=== PATIENT | female | born 1975 | race Caucasian/White ===

== ENCOUNTER 2019-11-07 12:24 | Outpatient (CLI) | payer MEDICAID, SELFPAY ==
--- NOTE | ~2019-11-07 | XR_ITS ---
EXAMINATION: XR shoulder LT min 2V DATE: 11/07/2019 13:01 INDICATION: Left shoulder pain. TECHNIQUE: 4 views of left shoulder were obtained. COMPARISON: None. FINDINGS: Bone alignment is normal. No fracture. There is mild osteoarthritis of glenohumeral joint a nd acromioclavicular joint. IMPRESSION: 1. Mild polyarticular osteoarthritis. Reviewed, dictated and finalized at location A.
--- NOTE | ~2019-11-07 | XR_ITS ---
EXAMINATION: XR shoulder RT min 2V DATE: 11/07/2019 13:01 INDICATION: Right shoulder pain. TECHNIQUE: 4 views of right shoulder were obtained. COMPARISON: None. FINDINGS: Bone alignment is normal. No fracture. There is mild osteoarthritis of glenohumeral joint a nd acromioclavicular joint. IMPRESSION: 1. Mild polyarticular osteoarthritis. Reviewed, dictated and finalized at location A.
[2019-11-07 12:56] LABS: Basophils Percent Auto 0.4 % (0.2-1.2); Eosinophils Absolute Auto 0.2 K/mm3 (0-0.3); Eosinophils Percent Auto 1.8 % (0-4.4); Hematocrit 41.3 % (37.0-47.0); Hemoglobin 13.9 g/dL (12.0-15.0); Immature Granulocyte Absolute 0.08 K/mm3 (0.00-0.031); Lymphocytes Absolute Auto 2.77 K/mm3 (0.9-3.2); Lymphocytes Percent Auto 33.7 % (18.3-44.2); Mean Corpuscular HGB Conc 33.7 g/dl (32-36); Mean Corpuscular Hemoglobin 30.4 pg (26-34); Mean Corpuscular Volume 90.4 fl (80-100); Monocytes Absolute Auto 0.6 K/mm3 (0.1-0.6); Monocytes Percent Auto 7.2 % (2.6-8.5); Neutrophils Absolute Auto 4.6 K/mm3 (1.3-6.7); Neutrophils Percent Auto 55.9 % (45.5-73.1); Red Blood Count 4.57 M/mm3 (4.2-5.4); Red Cell Distribution Width 12.7 % (11.5-14.5); White Blood Count 8.2 K/mm3 (4.5-10.0)
[2019-11-07 13:08] LABS: Alanine Aminotransferase 75 U/L (4-35); Albumin Level 4.1 g/dL (3.5-5.1); Alkaline Phosphatase 72 U/L (38-126); Aspartate Amino Transferase 58 U/L (14-36); Bilirubin,Total 0.4 mg/dL (0.2-1.3); Blood Urea Nitrogen 17 mg/dL (7-17); Carbon Dioxide 22 mmol/L (22-30); Chloride 106 mmol/L (98-107); Cholesterol 231 mg/dL (0-200); Estimated Glomerular Filt Rate > 60; Glucose 190 mg/dL (65-105); HDL Direct 40 mg/dL; Potassium 4.3 mmol/L (3.4-5.0); Sodium 136 mmol/L (137-145); Triglycerides 244 mg/dL (<150)
[2019-11-07 13:19] LABS: LDL Cholesterol Direct 134 mg/dL
[2019-11-07 13:33] LABS: Vitamin D 25 Hydroxy 31.4 ng/mL
[2019-11-07 14:05] LABS: Hepatitis C Virus Antibody Reactive (Negative)
[2019-11-11 01:47] LABS: Hepatitis C RNA, Quant PCR 125000 IU/mL
== END 2019-11-07 12:25 | disposition home or self-care (01) ==
PROVIDERS: PCP Internal Medicine; Visit Provider Clinical Nurse Specialist
DX: M19.012 Primary osteoarthritis, left shoulder (principal); M19.011 Primary osteoarthritis, right shoulder; E11.9 Type 2 diabetes mellitus without complications; Z86.19 Personal history of other infectious and parasitic diseases; E55.9 Vitamin D deficiency, unspecified; Z86.39 Personal history of other endocrine, nutritional and metabolic disease
CPT/HCPCS: 36415; 73030; 80053; 80061; 82306; 83036; 84443; 85025; 85055; 86803; 87522

== ENCOUNTER 2019-11-16 14:58 | Outpatient (CLI) | payer MEDICAID, SELFPAY ==
[2019-11-16 15:45] LABS: Prothrombin Time 13.2 Seconds (11.1-14.7)
[2019-11-16 16:30] LABS: HIV 1/2 Ab P24 Ag Result Negative (Negative)
[2019-11-16 16:35] LABS: Hepatitis B Surface Antigen Negative (Negative)
[2019-11-16 16:53] LABS: Hepatitis B Surface Antibody > 1000.00 s/c
[2019-11-16 18:12] LABS: Hepatitis B Surface Anti Res Positive
[2019-11-20 18:53] LABS: Amphetamines negative; Barbiturates negative; Benzodiazepines negative; Cocaine Metabolites negative; Marijuana Metabolites negative; PCP negative
[2019-11-20 20:04] LABS: Hepatitis B Core Ab Total Nonreactive (Nonreactive)
[2019-11-23 21:42] LABS: ALT 73 U/L (6-29); Alpha-2-Macroglobulin 474 mg/dL (106-279); Apolipoprotein A1 148 mg/dL (101-198); Fibrosis Score 0.44; Fibrosis Stage F1-F2; GGT 66 U/L (3-55); Haptoglobin 185 mg/dL (43-212); Necroinflammat Act Grade A1-A2; Total Bilirubin 0.3 mg/dL (0.2-1.2)
== END 2019-11-16 14:59 | disposition home or self-care (01) ==
LOC: ANHLAB 15:02
PROVIDERS: PCP Internal Medicine; Visit Provider Internal Medicine Gastroenterology
DX: B19.20 Unspecified viral hepatitis C without hepatic coma (principal)
CPT/HCPCS: 36415; 80307; 81596; 85610; 86703; 86704; 86706; 87340; G0432

== ENCOUNTER 2019-12-09 01:06 | Outpatient (CLI) | payer MEDICAID, SELFPAY ==
[2019-12-09 18:11] LABS: SARS-CoV-2 RNA PCR Negative
== END 2019-12-09 01:07 | disposition home or self-care (01) ==
LOC: ANHCOVIDDT 01:06
PROVIDERS: PCP Internal Medicine; Visit Provider Internal Medicine Gastroenterology
DX: Z01.812 Encounter for preprocedural laboratory examination (principal); Z11.59 Encounter for screening for other viral diseases
CPT/HCPCS: 87635; C9803; U0003

== ENCOUNTER 2019-12-12 01:41 | Day surgery (SDC) | payer MEDICAID, SELFPAY ==
[2019-12-04 15:45] VITALS: BMI 42.5
[2019-12-12 10:17] VITALS: BP 132/78; PULSE 99; RESP 20; TEMP 37.1; O2SAT 99; BMI 41.3
[2019-12-12 10:43] LABS: Glucose Point of Care 226 (65-105)
[2019-12-12] MEDS: LACTATED RINGERS 1,000 ML 150 ML IV CONT (10:43)
--- NOTE | 2019-12-12 10:57 | WPDANESEPPF ---
Anes - Initial Pre Proc Eval Procedure: Operation Date: 12/12/19 11:30 Proposed Procedures p Colonoscopy - Peter Bautista MD Date/Time: 12/12/19 10:57 Surgeon: Peter Bautista MD Pre Op Diagnosis: COLON POLYPS Patient Data Age: 44 Gender: F Height: 5 ft 5 in Weight: 112.7 kg Last Vital Signs Temp 98.7 F 12/12/19 10:17 Pulse 99 12/12/19 10:17 Resp 20 12/12/19 10:17 BP 132/78 12/12/19 10:17 Pulse Ox 99 12/12/19 10:17 Allergies Allergy/AdvReac Type Severity Reaction Status Date / Time asenapine [From Saphris] Allergy Intermediate numbness Verified 12/12/19 10:15 in mouth, throat capsaicin [From Capzasin] Allergy Mild rash Verified 12/12/19 10:15 erythromycin base Allergy Mild DIARRHEA Verified 12/12/19 10:15 menthol [From Capzasin] Allergy Mild rash Verified 12/12/19 10:15 Sulfa (Sulfonamide Allergy Mild RASH Verified 12/12/19 10:15 Antibiotics) Home Medications Medication Instructions Recorded Confirmed Type aspirin 81 mg tablet,delayed 81 mg PO DAILY 11/07/19 12/04/19 History release famotidine 40 mg tablet 40 mg PO DAILY 11/07/19 12/04/19 History lactobacillus combination no.9 4 4 mmu cells PO DAILY cap 11/07/19 12/04/19 History billion cell capsule loratadine 10 mg tablet 10 mg PO DAILY 11/07/19 12/04/19 History lisinopril 2.5 mg tablet 2.5 mg PO DAILY #90 tablet 11/09/19 12/04/19 Rx pen needle, diabetic 31 gauge x #100 each 11/09/19 12/04/19 Rx 5/16 simvastatin 10 mg tablet 10 mg PO DAILY #90 tablet 11/09/19 12/04/19 Rx insulin NPH isoph U-100 human 100 See Rx Instructions SUB-Q DAILY 11/13/19 12/04/19 Rx unit/mL subcutaneous suspension #10 ml insulin syringe-needle U-100 1 mL #100 each 11/13/19 12/04/19 Rx 29 gauge x 1/2 nystatin 100,000 unit/gram topical 1 applic TOPICAL .COMPLEX #60 gm 11/13/19 12/04/19 Rx powder linaclotide 145 mcg capsule 145 mcg PO DAILY #30 cap 11/16/19 12/04/19 Rx ibuprofen 400 mg PO Q6H PRN 12/04/19 12/04/19 History oxcarbazepine 300 mg tablet 300 mg PO .am tablet 12/04/19 12/04/19 History oxcarbazepine 600 mg tablet 600 mg PO .pm tablet 12/04/19 12/04/19 History sertraline 100 mg tablet 100 mg PO DAILY 12/04/19 12/04/19 History Laboratory Tests 12/12/19 10:40 POC Capillary Glucose 226 mg/dl H mg/dl (65-105) Patient hx anesthesia problems: none Family hx anesthesia problems: none [facility] Past Medical History Medical History (Updated 12/04/19 @ 13:54 by Tim Wagoner DO) Allergies Anxiety Arthritis Asthma 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 Constipation COPD (chronic obstructive pulmonary disease) Depression Diabetes Drug abuse in remission Excessive daytime sleepiness GERD (gastroesophageal reflux disease) Headache Hepatitis C IBS (irritable bowel syndrome) Sleep apnea Thyroid disorder Surgical History Surgical History (Updated 12/04/19 @ 13:45 by Tim Wagoner DO) History of colonoscopy History of surgery on arm 2017 History of umbilical hernia repair History of ventral hernia repair Hx laparoscopic cholecystectomy Hx of umbilical hernia repair 2007 -[place], [place] Hx of ventral hernia repair 2014 [place], [place] Social History Social History Smoking status: Current every day smoker Tobacco type: cigarettes Additional smoking assessment comments: Smokes about every 3days Alcohol intake: former Substance use: former Substance use type: crack/cocaine, heroin and methamphetamine Additional occupation/education comments: disability Gender identity (if verbalized by the patient): Female Anes - Eval Final PreProcedure Day of Procedure 12/12/19 10:57 Patient weight: morbidly obese Heart: regular rate and rhythm Lungs: clear to auscultation Airway: Mallampati scale class III Neurological: alert and oriented Last oral intake: >/= 8 hour
--- NOTE | 2019-12-12 11:03 | WPDHPUPDATE1 ---
History and Physical Update Update Date/Time: 12/12/19 11:03 History and Physical has been reviewed, including an updated exam of the patient. There are NO changes in the patient's condition. Risks, benefits, and alternatives have been discussed and questions answered. Patient agrees to proceed with procedure.
[2019-12-12 11:27] VITALS: BP 109/71; PULSE 82; RESP 24; O2SAT 93
[2019-12-12 11:36] LABS: Glucose Point of Care 206 (65-105)
[2019-12-12 11:37] VITALS: BP 105/70; PULSE 83; RESP 26; O2SAT 93
[2019-12-12 11:47] VITALS: BP 105/70; PULSE 79; RESP 26; O2SAT 93
== END 2019-12-12 12:06 | disposition home or self-care (01) ==
PROVIDERS: PCP Internal Medicine; Visit Provider Internal Medicine Gastroenterology
PROC: 0DJD8ZZ Inspection of Lower Intestinal Tract, Via Natural or Artificial Opening Endoscopic (ICD-10-PCS; CPT 45378; principal; 2019-12-12 11:30)
DX: Z12.11 Encounter for screening for malignant neoplasm of colon (principal); K57.30 Diverticulosis of large intestine without perforation or abscess without bleeding; Z86.010 Personal history of colon polyps; E11.9 Type 2 diabetes mellitus without complications; J44.9 Chronic obstructive pulmonary disease, unspecified; F41.8 Other specified anxiety disorders; K21.9 Gastro-esophageal reflux disease without esophagitis; K58.9 Irritable bowel syndrome, unspecified; Z79.4 Long term (current) use of insulin; Z79.82 Long term (current) use of aspirin; F17.210 Nicotine dependence, cigarettes, uncomplicated; E66.01 Morbid (severe) obesity due to excess calories; Z68.41 Body mass index [BMI] 40.0-44.9, adult
CPT/HCPCS: 45378; J2704; J7120

== ENCOUNTER 2019-12-13 12:12 | Outpatient (CLI) | payer MEDICAID, SELFPAY ==
[2019-12-16 19:29] LABS: Hepatitis C Viral RNA PCR 16300 IU/mL
[2019-12-22 09:52] LABS: HCV Genotype, LiPA 3
== END 2019-12-13 12:13 | disposition home or self-care (01) ==
PROVIDERS: PCP Internal Medicine; Visit Provider Internal Medicine Gastroenterology
DX: B19.20 Unspecified viral hepatitis C without hepatic coma (principal)
CPT/HCPCS: 36415; 87522

== ENCOUNTER 2019-12-14 08:34 | Outpatient (CLI) | payer MEDICAID, SELFPAY ==
--- NOTE | ~2019-12-14 | US_ITS ---
EXAMINATION: US right upper quadrant DATE: 12/14/2019 09:37 INDICATION: Unspecified viral hepatitis C without hepatic coma. TECHNIQUE: Multiple grayscale and Doppler ultrasound images of the abdomen were obtained. COMPARISON: None FINDINGS: Sensitivity is decreased by obesity. The visualized portions of the head and body of the pa ncreas are normal. The liver is normal without focal lesion. No liver surface nodularity. The gallbla dder is absent. The common duct is normal and measures 5 mm. There is normal flow in main portal vein . IMPRESSION: 1. Normal right upper quadrant ultrasound status post cholecystectomy. Reviewed, dictated and finalized at location B.
== END 2019-12-14 08:35 | disposition home or self-care (01) ==
PROVIDERS: PCP Internal Medicine; Visit Provider Internal Medicine Gastroenterology
DX: B19.20 Unspecified viral hepatitis C without hepatic coma (principal); R10.9 Unspecified abdominal pain
CPT/HCPCS: 76705

== ENCOUNTER 2020-01-30 10:00 | Outpatient (RCR) | payer MEDICAID, SELFPAY ==
[2019-12-07 12:37] VITALS: BP_SYST 105
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
--- NOTE | 2020-01-02 07:25 | PCPTNOTE ---
Patient called & cancelled scheduled appointment this date due to no ride.
[2020-01-04 12:29] VITALS: BP_SYST 105
--- NOTE | 2020-01-04 13:20 | PTOPEVAL ---
PHYSICAL THERAPY PLAN OF CARE UPDATE AND PROGRESS REPORT Thank you for referring Perla Palomo to [facility].? The patient is scheduled to be seen for therapy?2x/week for 2 weeks followed by 1x/week for 2 weeks. Please review, sign, date and return this plan of care MIKEY. I agree with and certify that the following plan of care is medically necessary. Referring Physician Date Attending Provider: Tim Wagoner, DO Progress Diagnosis bilateral shoulder pain Onset 2 years ago Subjective Information Perla is here today for Query Text:As Reported By Patient/ bilateral shoulder pain. Family States that she feels there is progress in meeting her goals but there continues to be a problem. She recognizes that stress can impact her pain and function. Self Report Pain Assessment Bilateral Shoulder(s) Reported Pain Level 5 Pain Description Aching,Tightness Other Pain Description left arm 6/10, right arm 3/10 Pain Aggravating Factors Other Pain Aggravating Factors Other Pain Aggravating Factors did a sleep study last night Pain Behaviors Guarding Interventions Used By Clinicians Exercise Additional Pain Comments right shoulder 2/10 Shoulder Range of Motion Left Shoulder Flexion - Active 127 Shoulder Abduction - Active 90 Shoulder Medial Rotation - Active L5 Query Text:Reach Behind the Back Shoulder Lateral Rotation - Active 60 Right Shoulder Flexion - Active 135 Shoulder Abduction - Active 105 Shoulder Medial Rotation - Active L3 Query Text:Reach Behind the Back Shoulder Lateral Rotation - Active 65 Shoulder Lateral Rotation - Active T2 Query Text:Reach Behind the Head Upper Extremity Muscle Strength Testing Shoulder Left Shoulder Flexion Strength 4 Good Shoulder Abduction Strength 4 Good Shoulder Medial Rotation Strength 4 Good Shoulder Lateral Rotation Strength 4- Good - Right Shoulder Flexion Strength 4+ Good + Shoulder Abduction Strength 4+ Good + Shoulder Medial Rotation Strength 4+ Good + Shoulder Lateral Rotation Strength 4+ Good + PT Clinical Summary Perla is a 44 yo female participating in outpatient physical therapy with bilateral shoulder pain. She demonstrates today an increase in ROM bilaterally in all directions, with left worse than right. She also describes greater pain in left vs. right and has limitd st
--- NOTE | 2020-01-30 10:45 | PTOPEVAL ---
PHYSICAL THERAPY PROGRESS REPORT Thank you for referring Perla Palomo to [facility].? The patient is scheduled to be seen for a re-assessment in 3 weeks. Please review, sign, date and return this plan of care MIKEY. I agree with and certify that the following plan of care is medically necessary. Referring Physician Date Attending Provider: Tim Wagoner, DO Progress Diagnosis bilateral shoulder pain Onset 2 years ago Subjective Information Perla reports she feels as Query Text:As Reported By Patient/ though she can stretch her Family shoulders a little further. Self Report Pain Assessment Bilateral Shoulder(s) Reported Pain Level 3 Pain Description Aching,Soreness,With Movement Other Pain Description R shoulder 1/10, left shoulder 3/10 Pain Behaviors Guarding Interventions Used By Clinicians Exercise Pain Score Pain Score 3: Self Report Upper Extremity Range of Motion Scapular/ Shoulder Range of Motion Left Shoulder Flexion - Active 127 Shoulder Abduction - Active 103 Shoulder Medial Rotation - Active L3 Query Text:Reach Behind the Back Shoulder Lateral Rotation - Active 60 Right Shoulder Flexion - Active 150 Shoulder Abduction - Active 122 Shoulder Medial Rotation - Active T12 Query Text:Reach Behind the Back Shoulder Lateral Rotation - Active 78 Shoulder Lateral Rotation - Active T3 Query Text:Reach Behind the Head Upper Extremity Muscle Strength Testing Scapular/Shoulder Left Shoulder Flexion Strength 4+ Good + Shoulder Abduction Strength 4+ Good + Shoulder Medial Rotation Strength 4 Good Shoulder Lateral Rotation Strength 4 Good Right Shoulder Flexion Strength 5 Normal Shoulder Abduction Strength 5 Normal Shoulder Medial Rotation Strength 5 Normal Shoulder Lateral Rotation Strength 5 Normal PT Clinical Summary Perla is a 44 yo female participating in outpatient physical therapy with bilateral shoulder pain. Perla presents with significant improvement in right shoulder ROM and improvement in bilateral shoulder strength. Her left shoulder ROM, while improving, is at a slower pace than compared to the right. I do wonder about a differential diagnosis of adhesive capsulitis of the left shoulder. Perla is
--- NOTE | 2020-02-20 15:30 | PCPTNOTE ---
Addendum entered by Jamilah Leonardo, PT, DPT 02/21/20 08:34: Cancelled appointment as she is going to get an MRI on Wednesday (02/25). She will call after she receives the results if she is to continue PT. Original Note: Patient called & cancelled scheduled appointment this date due to [ ]
--- NOTE | 2020-02-28 13:36 | PCPTNOTE ---
Attending Provider: Tim Wagoner DO Patient:Perla Palomo Date of :1975 Patient has not returned for any further treatments since 01/30/2020 (also date her last plan of care update was completed and sent). Spoke with Perla regarding her care and she noted that her physician is referring her to an orthopedic doctor. Plan to continue HEP and follow up with orthopedic. She will be discharged at this time, but would be happy to work with her in the future. Patient?s initial visit was on 12/07/2019. The goals have been partially met. Thank you for referring this patient to [facility]. Please review, sign, date and return this discharge summary MIKEY. I have been updated about the patient's current status and I agree with discharge from the above service at this time. Referring Physician Date
== END 2020-02-29 15:02 | disposition home or self-care (01) ==
LOC: ANHPT 10:00
PROVIDERS: PCP Internal Medicine; Visit Provider Internal Medicine
DX: M25.511 Pain in right shoulder (principal); M19.011 Primary osteoarthritis, right shoulder; M25.512 Pain in left shoulder; M19.012 Primary osteoarthritis, left shoulder
CPT/HCPCS: 36415; 87522; 97110; 97140; 97161

== ENCOUNTER 2020-01-31 10:44 | Outpatient (CLI) | payer MEDICAID, SELFPAY ==
[2020-01-31 11:30] LABS: Cholesterol 227 mg/dL (0-200); HDL Direct 28 mg/dL; Triglycerides 297 mg/dL (<150)
[2020-01-31 11:41] LABS: LDL Cholesterol Direct 136 mg/dL
[2020-01-31 11:50] LABS: Creatinine Urine 75.3 mg/dL
[2020-01-31 11:54] LABS: Hemoglobin A1C 8.2 % (<5.7)
[2020-01-31 11:54] LABS: MALB Creatinine Ratio 56.2 mg/g (0-30); Microalbumin Urine Random 42.3 mg/L (0-16.7)
== END 2020-01-31 10:45 | disposition home or self-care (01) ==
LOC: ANHLAB 10:45
PROVIDERS: PCP Internal Medicine; Visit Provider Internal Medicine
DX: E11.9 Type 2 diabetes mellitus without complications (principal)
CPT/HCPCS: 36415; 80061; 82043; 83036

== ENCOUNTER 2020-02-25 09:33 | Outpatient (CLI) | payer MEDICAID, SELFPAY ==
--- NOTE | ~2020-02-25 | MR_ITS ---
EXAMINATION: MR shoulder LT wo con DATE: 02/25/2020 10:23 INDICATION: Left shoulder pain. TECHNIQUE: Magnetic resonance imaging (MRI) of the left shoulder was performed without intravenous co ntrast. Sequences included axial PD-weighted FS FSE, coronal oblique PD-weighted FS FSE, coronal obli que T2-weighted FS FSE, sagittal PD-weighted FS FSE, and sagittal T1-weighted SE. COMPARISON: None. FINDINGS: Coracoacromial arch: The acromion undersurface is curved in morphology (type II) with anterior downsloping. The coracoacro mial ligament is normal. Mild acromioclavicular osteoarthritis with small inferiorly directed osteoph ytes. Rotator cuff: Moderate supraspinatus tendinopathy with thickening and mild increased signal of the distal 2-3 cm of the tendon. There is a 4 x 3 x 1.5 mm region of fluid or near fluid signal within the conjoined port ion of the supraspinatus and infraspinatus tendons located proximally 1.5 cm from the greater tuberos ity insertion consistent with mild partial tear, unclear whether involves the bursal surface or remai ns intrasubstance closely opposed to the bursal surface. The more posterior infraspinatus and teres m inor tendons are normal. The subscapularis tendon is normal. Normal rotator cuff muscle bulk and sign al. Biceps tendon, glenoid labrum and glenohumeral cartilage: Long head of the biceps tendon is normal. Glenoid labrum is normal. Mild glenohumeral osteoarthritis with partial thickness cartilage loss with smooth chondral surface along the cephalad half of the gle noid and inferomedial aspect of the humeral head. Fluid: Physiologic amount of fluid in the glenohumeral joint and biceps tendon sheath. No loose osteochondra l bodies. No abnormal fluid signal at the subacromial/subdeltoid bursa to suggest bursitis. Bones: There is some red marrow reexpansion in the visualized humerus. No reactive marrow edema, fracture or pathologic marrow replacing process. IMPRESSION: 1. Moderate supraspinatus tendinopathy and small bursal sided versus intrasubstance tear at the criti deirdre zone of the conjoined portion of the supraspinatus and infraspinatus tendons. 2. Mild glenohumeral and acromioclavicular osteoarthritis. Reviewed, dictated and finalized at location B. IMPRESSION: 1. Moderate supraspinatus tendinopathy and small bursal sided versus intrasubst ance tear at the critical zone of the conjoined portion of the supraspinatus an d infraspinatus tendons. 2. Mild glenohumeral and acromioclavicular osteoarthritis.
== END 2020-02-25 09:34 | disposition home or self-care (01) ==
PROVIDERS: PCP Internal Medicine; Visit Provider Internal Medicine
DX: M25.512 Pain in left shoulder (principal); M75.82 Other shoulder lesions, left shoulder; M19.012 Primary osteoarthritis, left shoulder
CPT/HCPCS: 73221

== ENCOUNTER 2020-03-19 03:06 | Outpatient (CLI) | payer MEDICAID, SELFPAY ==
[2020-03-19 19:47] LABS: SARS-CoV-2 RNA PCR Negative
== END 2020-03-19 03:07 | disposition home or self-care (01) ==
LOC: ANHCOVIDDT 03:07
PROVIDERS: Clinical Nurse Specialist; PCP Internal Medicine; Visit Provider Internal Medicine Critical Care Medicine
DX: R68.89 Other general symptoms and signs (principal); Z20.828 Contact with and (suspected) exposure to other viral communicable diseases
CPT/HCPCS: 87635; C9803; U0003

== ENCOUNTER 2020-03-21 08:09 | Outpatient (CLI) | payer MEDICAID, SELFPAY ==
--- NOTE | 2020-04-19 11:43 | WPDSLEEPSTUD ---
Sleep Study Date of Study: 03/21/20 Ordering Provider: Dr.Yablonsky Sumi. Interpreting Physician: Sleep Study Type: Split Polysomnogram Height: 1.65 m Weight: 110.223 kg Body Mass Index: 40.4 Neck Circumference: 35.56 cm Grandy: 20 Reason for Sleep Study Prior sleep study shows severe obstructive sleep apnea, worse in supine position. Sleep History History of snoring, non refreshing sleep and severe daytime sleepiness. 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e pulmonary disease) Coughing Depression Diabetes Drug abuse in remission Excessive daytime sleepiness GERD (gastroesophageal reflux disease) Headache Hepatitis C High cholesterol History of MRSA infection History of postoperative complication of surgical procedure HPV (human papilloma virus) infection IBS (irritable bowel syndrome) Internal impingement of right shoulder Memory loss Shortness of breath Sleep apnea Sleep disorder Tendinitis of left rotator cuff Thyroid disorder Type 2 diabetes mellitus with hyperglycemia Urinary frequency Vertigo Wears dentures Wears glasses Surgical History Surgical History History of colonoscopy History of surgery on arm 2017 History of umbilical hernia repair History of ventral hernia repair Hx laparoscopic cholecystectomy Hx of umbilical hernia repair 2007 -[place], [place] Hx of ventral hernia repair 2014 [place], [place] Family History Family History Mother Diabetes mellitus Asthma Obesity Depression Hypertension Father Brain tumor Depression Social History Social History Smoking packs per day: 0.5 Smoking cigarettes per day: 10.0 Smoking status: Current some day smoker Tobacco type: cigarettes Additional smoking assessment comments: Smokes about every 3days Alcohol intake: former Substance use: former Substance use type: crack/cocaine, heroin and methamphetamine Additional occupation/education comments: disability Gender identity (if verbalized by the patient): Female Medications Home Medications Medication Instructions Recorded Confirmed Type aspirin 81 mg tablet,delayed 81 mg PO DAILY 11/07/19 04/18/20 History release famotidine 40 mg tablet 40 mg PO DAILY 11/07/19 04/18/20 History loratadine 10 mg tablet 10 mg PO DAILY 11/07/19 04/18/20 History pen needle, diabetic 31 gauge x #100 each 11/09/19 04/18/20 Rx 5/16 insulin syringe-needle U-100 1 mL #100 each 11/13/19 04/18/20 Rx 29 gauge x 1/2 nystatin 100,000 unit/gram topical 1 applic TOPICAL .COMPLEX #60 gm 11/13/19 04/18/20 Rx powder linaclotide 145 mcg capsule 145 mcg PO DAILY #30 cap 11/16/19 04/18/20 Rx ibuprofen 400 mg PO Q6H PRN 12/04/19 04/18/20 History oxcarbazepine 600 mg tablet 600 mg PO .pm tablet 12/04/19 04/18/20 History lisinopril 2.5 mg tablet 2.5 mg PO DAILY #90 tablet 01/29/20 04/18/20 Rx simvastatin 10 mg tablet 10 mg PO DAILY #90 tablet 01/29/20 04/18/20 Rx blood-glucose meter #1 ea 02/12/20 04/18/20 Rx insulin NPH isoph U-100 human 100 See Rx Instructions SUB-Q DAILY 02/12/20 04/18/20 Rx unit/mL subcutaneous suspension #20 ml insulin syringe-needle U-100 1 mL #100 ea 02/12/20 04/18/20 Rx 29 gauge x 1/2 lancets 30 gauge #100 ea 02/12/20 04/18/20 Rx sertraline 100 mg tablet 150 mg PO DAILY tablet 02/12/20 04/18/20 History albuterol sulfate 90 mcg/actuation 2 inh INHALATION Q4H PRN #6.7 g 02/13/20 04/18/20 Rx aerosol inhaler blood sugar diagnostic #200 ea 02/13/20 04/18/20 Rx Novolog Flexpen U-100 Insulin 100 S
[2020-04-19 11:53] VITALS: BMI 40.4
== END 2020-03-21 08:10 | disposition home or self-care (01) ==
LOC: ANHCSM 08:14
PROVIDERS: PCP Internal Medicine; Visit Provider Nurse Practitioner
DX: G47.30 Sleep apnea, unspecified (principal)
CPT/HCPCS: 95811

== ENCOUNTER 2020-03-23 10:45 | Emergency (ER) | payer MEDICAID, SELFPAY ==
--- NOTE | ~2020-03-23 | XR_ITS ---
EXAMINATION: XR wrist RT min 3V EXAM DATE: 03/23/2020 11:11 INDICATION: fall/pain, pain down first digit into wrist, redness. TECHNIQUE: Right wrist frontal, frontal with ulnar deviation, oblique and lateral projections obtain ed and reviewed. There is no prior study for comparison. FINDINGS: Right wrist scapholunate joint space is maintained. There are no acute fractures or disloca tions identified. There is no subcutaneous gas. The soft tissue is unremarkable. There are no rad iopaque foreign bodies. IMPRESSION: Right wrist exam without acute osseous findings. Reviewed, dictated and finalized at location A. 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
--- NOTE | ~2020-03-23 | XR_ITS ---
EXAMINATION: XR hand RT min 3V EXAM DATE: 03/23/2020 11:45 INDICATION: right hand pain, fall, pain in 1st digit down into wrist. TECHNIQUE: Right hand frontal, lateral and oblique projections obtained and reviewed. Correlation is made to right wrist exam same date. FINDINGS: Right metacarpal bones are unremarkable. There are no acute fractures or dislocations iden tified. There is no subcutaneous gas. The soft tissue is unremarkable. There are no radiopaque fo reign bodies. IMPRESSION: 1. Right hand exam without acute osseous findings. Reviewed, dictated and finalized at location A. 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
[2020-03-23 11:00] VITALS: BP 130/71; PULSE 107; RESP 18; TEMP 36.3; O2SAT 97
--- NOTE | 2020-03-23 11:08 | PC.NURSE ---
Pt to XRAY via WC.
--- NOTE | 2020-03-23 11:38 | ED.FALL ---
HPI - Fall General Chief Complaint: Fall <Tracy Anguiano PA-C - Last Filed: 03/23/20 12:16> Stated Complaint: fall 03/22/2020/ right hand pain <Tracy Anguiano PA-C - Last Filed: 03/23/20 12:16> Time Seen by Provider: 03/23/20 11:23 <Tracy Anguiano PA-C - Last Filed: 03/23/20 12:16> Source: patient <CANDIDA Wisdom Last Filed: 03/23/20 12:16> Mode of arrival: ambulatory <CANDIDA Wisdom Last Filed: 03/23/20 12:16> Limitations: no limitations <CANDIDA Wisdom Last Filed: 03/23/20 12:16> History of Present Illness HPI Narrative: This is a 44-year-old female that presents the emergency department for right hand pain after a fall yesterday. Reports she tripped and fell backwards in her driveway. Reports catching herself with her right hand. Denies hitting her head or loss of consciousness. Reports that she has had pain in the right hand and wrist. Denies prodromal symptoms, other injuries, decreased range of motion or numbness. <Tracy Anguiano PA-C - Last Filed: 03/23/20 12:16> Related Data Home Medications: Home Medications Medication Instructions Recorded Confirmed aspirin 81 mg tablet,delayed 81 mg PO DAILY 11/07/19 02/27/20 release famotidine 40 mg tablet 40 mg PO DAILY 11/07/19 02/27/20 loratadine 10 mg tablet 10 mg PO DAILY 11/07/19 02/27/20 ibuprofen 400 mg PO Q6H PRN 12/04/19 02/27/20 oxcarbazepine 600 mg tablet 600 mg PO .pm tablet 12/04/19 02/27/20 sertraline 100 mg tablet 150 mg PO DAILY tablet 02/12/20 02/27/20 <CANDIDA Wisdom Last Filed: 03/23/20 12:16> Allergies/Adverse Reactions: Allergies Allergy/AdvReac Type Severity Reaction Status Date / Time asenapine [From Saphris] Allergy Intermediate numbness Verified 03/12/20 08:52 in mouth, throat capsaicin [From Capzasin] Allergy Mild rash Verified 03/12/20 08:52 erythromycin base Allergy Mild DIARRHEA Verified 03/12/20 08:52 menthol [From Capzasin] Allergy Mild rash Verified 03/12/20 08:52 Sulfa (Sulfonamide Allergy Mild RASH Verified 03/12/20 08:52 Antibiotics) <Tracy Anguiano PA-C - Last Filed: 03/23/20 12:16> Review of Systems Review of Systems: Narrative: CONSTITUTIONAL: Denies fever EYES: Denies visual changes GASTROINTESTINAL: Denies vomiting MUSCULOSKELETAL: Reports joint pain, and myalgia. NEUROLOGIC: Denies numbness, or weakness. 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 Constipation COPD (chronic obstructive pulmonary disease) Depression Diabetes Drug abuse in remission Excessive daytime sleepiness GERD (gastroesophageal reflux disease) Headache Hepatitis C IBS (irritable bowel syndrome) Sleep apnea Thyroid disorder Type 2 diabetes mellitus with hyperglycemia <CANDIDA Wisdom Last Filed: 03/23/20 12:16> Surgical History Surgical History: Surgical History History of colonoscopy History of surgery on arm 2017 History of umbilical hernia repair History of ventral hernia repair Hx laparoscopic cholecystectomy Hx of umbilical hernia repair 2007 -[place], [place] Hx of ventral hernia repair 2014 [place], [place] <Tarcy Anguiano PA-C - Last Filed: 03/23/20 12:16> Family History Family History: Family History Mother Diabetes mellitus Asthma Obesity Depression Hypertension Father Brain tumor Depression <CANDIDA Wisdom Last Filed: 03/23/20 12:16> Social History Social History: Social History (Re
[2020-03-23] MEDS: IBUPROFEN 600 MG TABLET PO (11:48)
[2020-03-23 12:36] VITALS: BP 124/87; PULSE 99; RESP 19; O2SAT 99
== END 2020-03-23 12:37 | disposition home or self-care (01) ==
PROVIDERS: Emergency Provider General Practice; PCP Internal Medicine
DX: M25.531 Pain in right wrist (principal); F41.9 Anxiety disorder, unspecified; M19.90 Unspecified osteoarthritis, unspecified site; J44.9 Chronic obstructive pulmonary disease, unspecified; E11.9 Type 2 diabetes mellitus without complications; K21.9 Gastro-esophageal reflux disease without esophagitis; K58.9 Irritable bowel syndrome, unspecified; Z86.19 Personal history of other infectious and parasitic diseases; G47.30 Sleep apnea, unspecified; E07.9 Disorder of thyroid, unspecified; Z79.82 Long term (current) use of aspirin; F17.210 Nicotine dependence, cigarettes, uncomplicated; W01.0XXA Fall on same level from slipping, tripping and stumbling without subsequent striking against object, initial encounter
CPT/HCPCS: 73110; 73130; 99283; A9270

== ENCOUNTER 2020-04-03 08:34 | Outpatient (CLI) | payer MEDICAID, SELFPAY ==
[2020-04-03 08:56] LABS: Hematocrit 41.3 % (37.0-47.0); Hemoglobin 14.4 g/dL (12.0-15.0); Mean Corpuscular HGB Conc 34.9 g/dl (32-36); Mean Corpuscular Hemoglobin 30.9 pg (26-34); Mean Corpuscular Volume 88.6 fl (80-100); Mean Platelet Volume 9.5 fl (7.4-10.4); Platelet Count Result 258 k/mm3 (150-375); Red Blood Count 4.66 M/mm3 (4.2-5.4); Red Cell Distribution Width 12.5 % (11.5-14.5); White Blood Count 7.1 K/mm3 (4.5-10.0)
[2020-04-03 09:04] LABS: Alanine Aminotransferase 14 U/L (4-35); Albumin Level 3.9 g/dL (3.5-5.1); Alkaline Phosphatase 71 U/L (38-126); Anion Gap 10 mmol/L (8-16); Aspartate Amino Transferase 24 U/L (14-36); Bilirubin,Total 0.4 mg/dL (0.2-1.3); Blood Urea Nitrogen 14 mg/dL (7-17); Calcium 9.4 mg/dL (8.4-10.2); Carbon Dioxide 23 mmol/L (22-30); Chloride 104 mmol/L (98-107); Estimated Glomerular Filt Rate > 60; Glucose 292 mg/dL (65-105); Sodium 137 mmol/L (137-145)
[2020-04-09 03:00] LABS: Hepatitis C RNA, Quant PCR <15 IU/mL
== END 2020-04-03 08:35 | disposition home or self-care (01) ==
PROVIDERS: PCP Internal Medicine; Visit Provider Internal Medicine Gastroenterology
DX: B19.20 Unspecified viral hepatitis C without hepatic coma (principal)
CPT/HCPCS: 36415; 80053; 85027; 87522

== ENCOUNTER 2020-06-10 07:03 | Outpatient (CLI) | payer MEDICAID, SELFPAY ==
[2020-06-10 11:33] LABS: Hemoglobin A1C 9.7 % (<5.7)
== END 2020-06-10 07:04 | disposition home or self-care (01) ==
PROVIDERS: PCP Internal Medicine; Visit Provider Clinical Nurse Specialist
DX: E11.65 Type 2 diabetes mellitus with hyperglycemia (principal)
CPT/HCPCS: 36415; 83036

== ENCOUNTER 2020-07-30 16:02 | Emergency (ER) | payer MEDICARE, MEDICAID, SELFPAY ==
--- NOTE | ~2020-07-30 | XR_ITS ---
EXAMINATION: XR ankle RT min 3V DATE: 07/30/2020 18:00 INDICATION: Right ankle swelling. TECHNIQUE: 4 views of right ankle were obtained. COMPARISON: None. FINDINGS: Pes planus is noted. No fracture. Joint spaces are well maintained. There are enthesophytes at the posterior and plantar aspects of calcaneal tuberosity. IMPRESSION: 1. Pes planus. Reviewed, dictated and finalized at location A. IMPRESSION: 1. Pes planus.
--- NOTE | ~2020-07-30 | CT_ITS ---
EXAMINATION: CT brain wo con DATE: 07/30/2020 16:38 INDICATION: Head injury. TECHNIQUE: Computed tomography (CT) of the head was performed without intravenous contrast. The mA wa s adjusted according to patient size. Iterative reconstruction technique was employed. The dose-lengt h product was 605.33 mGy-cm. COMPARISON: Head CT 12/04/2009 FINDINGS: There is no intracranial hemorrhage, acute infarction, or abnormal intracranial mass lesion . The ventricles are normal in size. Cavum septum pellucidum and vergae are noted. There is fluid in right maxillary sinus. The orbits are normal. The mastoid air cells are normal. IMPRESSION: 1. Normal brain. Reviewed, dictated and finalized at location A. IMPRESSION: 1. Normal brain.
[2020-07-30 17:25] VITALS: BP 128/77; PULSE 90; RESP 18; TEMP 35.8; O2SAT 96
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
[2020-07-30 18:40] VITALS: BP 139/75; PULSE 75; RESP 16; O2SAT 100
== END 2020-07-30 18:21 | disposition home or self-care (01) ==
PROVIDERS: Emergency Provider Emergency Medicine; PCP Internal Medicine
DX: S06.0X0A Concussion without loss of consciousness, initial encounter (principal); E11.9 Type 2 diabetes mellitus without complications; I10 Essential (primary) hypertension; M19.90 Unspecified osteoarthritis, unspecified site; J44.9 Chronic obstructive pulmonary disease, unspecified; K21.9 Gastro-esophageal reflux disease without esophagitis; Z86.19 Personal history of other infectious and parasitic diseases; K58.9 Irritable bowel syndrome, unspecified; G47.30 Sleep apnea, unspecified; E07.9 Disorder of thyroid, unspecified; F41.9 Anxiety disorder, unspecified; F32.9 Major depressive disorder, single episode, unspecified; Z79.82 Long term (current) use of aspirin; Z79.4 Long term (current) use of insulin; F17.210 Nicotine dependence, cigarettes, uncomplicated; F17.220 Nicotine dependence, chewing tobacco, uncomplicated; M21.41 Flat foot [pes planus] (acquired), right foot; Y93.55 Activity, bike riding; V18.4XXA Pedal cycle driver injured in noncollision transport accident in traffic accident, initial encounter
CPT/HCPCS: 70450; 73610; 99284

== ENCOUNTER 2020-08-12 12:11 | Emergency (ER) | payer MEDICARE, MEDICAID, SELFPAY ==
--- NOTE | ~2020-08-12 | XR_ITS ---
EXAMINATION: XR chest 2V DATE: 08/12/2020 13:06 INDICATION: Shortness of breath TECHNIQUE: Frontal and lateral views of the chest are obtained COMPARISON: None available FINDINGS: The lungs are free of acute opacities. There is no pleural effusion or pneumothorax. The ca rdiomediastinal silhouette is normal. There is mild thoracic spondylosis. IMPRESSION: 1. No acute cardiopulmonary abnormality. Reviewed, dictated and finalized at location B.
--- NOTE | 2020-08-12 12:15 | ECG_ITS ---
Measurements Intervals [place] Rate: 104 P: 23 TN: 160 QRS: 54 QRSD: 77 T: 48 QT: 333 QTc: 440 Interpretive Statements SINUS TACHYCARDIA LOW VOLTAGE- PREOCRDIAL LEADS BASELINE ARTIFACT- V5 BORDERLINE ECG Electronically Signed On 08-12-2020 13:04:26 CDT by Shashank Matthews D.O.
[2020-08-12 12:21] VITALS: BP 128/74; PULSE 99; RESP 20; TEMP 36.7; O2SAT 98
[2020-08-12 12:54] LABS: Basophils Percent Auto 0.4 % (0.2-1.2); Eosinophils Absolute Auto 0.1 K/mm3 (0-0.3); Eosinophils Percent Auto 1.7 % (0-4.4); Hematocrit 39.9 % (37.0-47.0); Hemoglobin 13.4 g/dL (12.0-15.0); Immature Granulocyte Absolute 0.05 K/mm3 (0.00-0.031); Immature Granulocyte Percent A 0.7 % (0-0.5); Lymphocytes Absolute Auto 2.13 K/mm3 (0.9-3.2); Lymphocytes Percent Auto 28.6 % (18.3-44.2); Mean Corpuscular HGB Conc 33.6 g/dl (32-36); Mean Corpuscular Hemoglobin 29.8 pg (26-34); Mean Corpuscular Volume 88.9 fl (80-100); Monocytes Absolute Auto 0.5 K/mm3 (0.1-0.6); Monocytes Percent Auto 6.2 % (2.6-8.5); Neutrophils Absolute Auto 4.7 K/mm3 (1.3-6.7); Neutrophils Percent Auto 62.4 % (45.5-73.1); Platelet Count Result 246 k/mm3 (150-375); Red Blood Count 4.49 M/mm3 (4.2-5.4); Red Cell Distribution Width 12.8 % (11.5-14.5); White Blood Count 7.5 K/mm3 (4.5-10.0)
[2020-08-12 13:14] LABS: Anion Gap 10 mmol/L (8-16); Blood Urea Nitrogen 15 mg/dL (7-17); Carbon Dioxide 19 mmol/L (22-30); Chloride 105 mmol/L (98-107); Estimated CRCL calculation 147 ml/min; Estimated Glomerular Filt Rate > 60; Glucose 408 mg/dL (65-105); Potassium 4.2 mmol/L (3.4-5.0); Sodium 134 mmol/L (137-145)
--- NOTE | 2020-08-12 14:22 | ED.SOB ---
HPI - SOB/Dyspnea General Chief Complaint: Shortness of Breath/Dyspnea Stated Complaint: SOB Time Seen by Provider: 08/12/20 14:16 Source: patient Mode of arrival: ambulatory Limitations: no limitations History of Present Illness HPI Narrative: Patient is a 44-year-old female complaining of shortness of breath, cough, nasal congestion and fatigue that started 3 days ago. Patient states that she tested negative for Covid on Wednesday. Patient states that she has a history of asthma and COPD. Patient denies any chest pain, abdominal pain, nausea, vomiting, diarrhea, fever or chills. Related Data Home Medications Medication Instructions Recorded Confirmed aspirin 81 mg tablet,delayed 81 mg PO DAILY 11/07/19 07/03/20 release loratadine 10 mg tablet 10 mg PO DAILY 11/07/19 07/03/20 ibuprofen 400 mg PO Q6H PRN 12/04/19 07/03/20 oxcarbazepine 600 mg tablet 600 mg PO .pm tablet 12/04/19 07/03/20 sertraline 100 mg tablet 200 mg PO DAILY tablet 06/14/20 07/03/20 linaclotide 145 mcg capsule 145 mcg PO DAILY PRN cap 07/19/20 bupropion HCl 150 mg 24 hr tablet, 100 mg PO QAM tablet 08/12/20 extended release multivitamin 1 tablet PO DAILY 08/12/20 prazosin 1 mg capsule 1 mg PO QHS 08/12/20 Allergies Allergy/AdvReac Type Severity Reaction Status Date / Time asenapine [From Saphris] Allergy Intermediate numbness Verified 08/08/20 13:41 in mouth, throat capsaicin [From Capzasin] Allergy Mild rash Verified 08/08/20 13:41 erythromycin base Allergy Mild DIARRHEA Verified 08/08/20 13:41 menthol [From Capzasin] Allergy Mild rash Verified 08/08/20 13:41 Sulfa (Sulfonamide Allergy Mild RASH Verified 08/08/20 13:41 Antibiotics) Review of Systems Review of Systems: All systems reviewed & are unremarkable except as noted in HPI and below Constitutional: Constitutional: Denies chills, Denies excessive sweating, Denies fever(s), Denies headache(s), Denies lethargy, Denies weakness and Denies weight loss Eyes: Eyes: Denies blurry vision, Denies change in vision and Denies loss of vision ENT: Denies dizziness, Denies ear discharge, Denies headache(s), Denies lip swelling, Denies epistaxis, Denies nasal congestion, Denies neck pain, Denies throat swelling and Denies tongue swelling Cardiovascular: Cardiovascular: Denies chest pain, Denies chest pain at rest, Denies chest pain with activity, Denies diaphoresis, Denies rapid heart rate, Denies edema, Denies irregular heart rhythm, Denies lightheadedness and Denies palpitations Respiratory: Respiratory: Denies chest congestion and Denies hemoptysis Gastrointestinal: Gastrointestinal: Denies abdominal pain, Denies melena, Denies hematochezia, Denies diarrhea, Denies nausea, Denies vomiting and Denies hematemesis Musculoskeletal: Musculoskeletal: Denies abnormal gait, Denies deformity, Denies joint swelling, Denies limited range of motion, Denies neck pain and Denies numbness Neurologic: Denies Abnormal speech present, Denies abnormal gait, Denies confusion, Denies dizziness, Denies headache(s), Denies focal weakness, Denies loss of vision, Denies numbness, Denies Other visual disturbances, Denies Sensory deficit (Neuro) and Denies weakness Psychiatric: Psychiatric: Denies confusion, Denies depression, Denies auditory hallucinations, Denies homicidal ideation and Denies suicidal ideation Endocrine: Endocrine: Denies cold intolerance, Denies excessive sweating, Denies fatigue, Denies heat intolerance and Denies palpitations Hematologic/Lymphatic: Hematologic/Lymphatic: Denies easy bleeding and Denies easy bruising Allergic/Immunologic: Allergic/Immunologic: Denies lip swelling, Denies throat swelling and Denies tongue swelling PMFSH Past Medical History Medical History Abdominal pain Allergies Anxiety Arthritis Asthma Asthma 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
[2020-08-12 14:47] VITALS: PULSE 98; RESP 20
[2020-08-12 14:50] VITALS: BP 131/86; PULSE 90; RESP 11; TEMP 36.7; O2SAT 100
[2020-08-12] MEDS: IPRATROPIUM BR 0.02% INH SOLN 0.5 MG/2.5 ML VIAL INHALATION (14:51)
[2020-08-12] MEDS: ALBUTEROL SULFATE NEB 2.5 MG/0.5 ML INH 5 MG INHALATION (14:51)
[2020-08-12 14:54] LABS: Base Excess ABG -3.5 mEq/l (+/-2.0); Carboxyhemoglobin 0.5 % THb (0-2.0); Device ROOM AIR; Fractional Inspired Oxygen 21 %; HCO3 ABG 19.7 mEq/l (22.0-26.0); Methemoglobin ABG 0.2 %THb (0-1.5); Oxygen Content ABG 18.2 %vol (16.0-22.0); Oxygen Saturation ABG 96.2 % (95.0-100.0); Oxyhemoglobin 95.2 % THb (90.0-100.0); PCO2 ABG 30.4 mmHg (35.0-45.0); PO2 ABG 79.3 mmHg (80.0-100.0); PO2 FiO2 Ratio Arterial Blood 3.78 %; Reduced Hemoglobin 4.1 %THb (0-5.0); Site Drawn RIGHT BRACHIAL; Total Hemoglobin 13.6 g/dL (12.0-18.0); pH ABG 7.429 (7.350-7.450)
[2020-08-12 14:58] VITALS: PULSE 100; RESP 20
[2020-08-12 15:22] LABS: INR 0.9; Lactic Acid Reflex 2.4 mmol/L (0.7-2.1); Prothrombin Time 12.2 Seconds (11.1-14.7)
[2020-08-12 15:23] LABS: Partial Thromboplastin Time 22.3 SECONDS (22.3-36.8)
[2020-08-12] MEDS: methylPREDNISolone SOD SUCC 125 MG VIAL IV PUSH (15:24)
[2020-08-12] MEDS: LACTATED RINGERS 1,000 ML 999 ML IV CONT (15:24)
[2020-08-12 15:30] VITALS: BP 124/71; PULSE 100; RESP 17; TEMP 36.6; O2SAT 95
[2020-08-12 15:35] LABS: NT Pro B Type Natriuretic Pept 52 PG/ML (5-100); Troponin I < 0.012 ng/mL (0.000-0.034)
[2020-08-12 15:43] LABS: D Dimer 0.33 ug/mL (<0.48)
[2020-08-12 16:37] VITALS: BP 130/81; PULSE 92; RESP 22; TEMP 37; O2SAT 97
[2020-08-12 18:09] LABS: Reflex Lactic Acid Yes or No Add Lactic
== END 2020-08-12 17:30 | disposition home or self-care (01) ==
PROVIDERS: Emergency Provider Emergency Medicine; PCP Internal Medicine
DX: J44.1 Chronic obstructive pulmonary disease with (acute) exacerbation (principal); J06.9 Acute upper respiratory infection, unspecified; E11.65 Type 2 diabetes mellitus with hyperglycemia; E78.00 Pure hypercholesterolemia, unspecified; K58.9 Irritable bowel syndrome, unspecified; K21.9 Gastro-esophageal reflux disease without esophagitis; M19.90 Unspecified osteoarthritis, unspecified site; F32.9 Major depressive disorder, single episode, unspecified; F41.9 Anxiety disorder, unspecified; F43.10 Post-traumatic stress disorder, unspecified; G47.30 Sleep apnea, unspecified; F17.210 Nicotine dependence, cigarettes, uncomplicated; Z86.19 Personal history of other infectious and parasitic diseases; Z86.14 Personal history of Methicillin resistant Staphylococcus aureus infection; R00.0 Tachycardia, unspecified; Z79.82 Long term (current) use of aspirin; Z79.4 Long term (current) use of insulin
CPT/HCPCS: 36415; 36600; 71046; 80048; 82375; 82805; 83050; 83605; 83880; 84484; 85025; 85380; 85610; 85730; 93005; 94640; 96361; 96374; 99284; J2930; J7120

== ENCOUNTER 2020-08-27 13:58 | Outpatient (CLI) | payer MEDICARE, MEDICAID, SELFPAY ==
[2020-08-27 16:06] LABS: Creatinine Urine 32.2 mg/dL
[2020-08-27 16:07] LABS: MALB Creatinine Ratio 202.2 mg/g (0-30); Microalbumin Urine Random 65.1 mg/L (0-16.7)
== END 2020-08-27 13:59 | disposition home or self-care (01) ==
LOC: ANHLAB 14:02
PROVIDERS: PCP Internal Medicine; Visit Provider Internal Medicine Endocrinology, Diabetes & Metabolism
DX: R80.9 Proteinuria, unspecified (principal)
CPT/HCPCS: 82043

== ENCOUNTER 2021-04-02 10:06 | Outpatient (CLI) | payer OTHER, SELFPAY ==
[2021-04-02 10:44] LABS: Alanine Aminotransferase 12 U/L (4-35); Albumin Level 3.7 g/dL (3.5-5.1); Alkaline Phosphatase 69 U/L (38-126); Aspartate Amino Transferase 19 U/L (14-36); Bilirubin,Total 0.4 mg/dL (0.2-1.3)
== END 2021-04-02 10:07 | disposition home or self-care (01) ==
PROVIDERS: PCP Internal Medicine; Visit Provider Internal Medicine Endocrinology, Diabetes & Metabolism
DX: E11.65 Type 2 diabetes mellitus with hyperglycemia (principal)
CPT/HCPCS: 36415; 80076

== ENCOUNTER 2021-06-20 14:39 | Outpatient (CLI) | payer OTHER, SELFPAY ==
--- NOTE | ~2021-06-20 | MM_ITS ---
EXAMINATION: MM screening [place] BI w deloris HISTORY: Screening TECHNIQUE: Craniocaudal and mediolateral oblique 3-D tomosynthesis images were obtained and synthetic 2-D images were generated. CAD analysis was submitted and interpreted. COMPARISON: No prior mammogram is available for comparison at this institution. BREAST PARENCHYMAL COMPOSITION: There are scattered areas of fibroglandular density. FINDINGS: There is no evidence of suspicious mass, calcification, or architectural distortion to sugg est malignancy in either breast. There has been no suspicious interval change. IMPRESSION: 1. No mammographic evidence of malignancy. 2. Recommend routine screening mammography in one year. BI-RADS Category 1: Negative Reviewed, dictated and finalized at location A. [employer]
== END 2021-06-20 14:40 | disposition home or self-care (01) ==
PROVIDERS: PCP Internal Medicine; Visit Provider Student in an Organized Health Care Education/Training Program
DX: Z12.31 Encounter for screening mammogram for malignant neoplasm of breast (principal)
CPT/HCPCS: 77063; 77067

== ENCOUNTER → 2021-07-11 03:06 | Outpatient (CLI) | payer OTHER, SELFPAY ==
[2021-07-11 14:36] LABS: SARS-CoV-2 RNA PCR Positive
== END ==
PROVIDERS: PCP Internal Medicine; Visit Provider Family Medicine
DX: U07.1 COVID-19 (principal)
CPT/HCPCS: C9803; U0003; U0005

== ENCOUNTER 2022-03-10 11:52 | Outpatient (CLI) | payer MEDICARE, MEDICAID, SELFPAY ==
[2022-03-10 12:31] LABS: Alanine Aminotransferase 14 U/L (6-35); Albumin Level 3.7 g/dL (3.5-5.1); Alkaline Phosphatase 72 U/L (38-126); Anion Gap 11 mmol/L (8-16); Aspartate Amino Transferase 20 U/L (14-36); Bilirubin,Total 0.4 mg/dL (0.2-1.3); Blood Urea Nitrogen 14 mg/dL (7-17); Calcium 8.3 mg/dL (8.4-10.2); Carbon Dioxide 23 mmol/L (22-30); Chloride 103 mmol/L (98-107); Estimated Glomerular Filt Rate > 60; Glucose 295 mg/dL (65-110); HDL Direct 36 mg/dL; Sodium 137 mmol/L (137-145); Triglycerides 448 mg/dL (<150)
[2022-03-10 12:38] LABS: Creatinine Urine 127.4 mg/dL
[2022-03-10 12:39] LABS: LDL Cholesterol Direct 158 mg/dL
[2022-03-10 12:52] LABS: Cholesterol 326 mg/dL (0-200); Free T4 Free Thyroxine 0.95 ng/mL (0.78-2.19); Vitamin D 25 Hydroxy 18.1 ng/mL
[2022-03-10 13:35] LABS: MALB Creatinine Ratio 758.1 mg/g (0-30); Microalbumin Urine Random 965.8 mg/L (0-16.7)
== END 2022-03-10 11:53 | disposition home or self-care (01) ==
PROVIDERS: PCP Internal Medicine; Visit Provider Nurse Practitioner Family
DX: E11.65 Type 2 diabetes mellitus with hyperglycemia (principal)
CPT/HCPCS: 36415; 80053; 80061; 82043; 82306; 82607; 84439; 84443

== ENCOUNTER 2022-04-19 11:55 | Inpatient (IN) | payer MEDICARE, MEDICAID, SELFPAY ==
[2022-04-19] VITALS (31 sets, daily range): BP systolic 116–157; BP diastolic 57–89; PULSE 100–118; RESP 14–18; TEMP 36.8; O2SAT 91–100
--- NOTE | ~2022-04-19 | CT_ITS ---
EXAMINATION: CT abdomen pelvis w con DATE: 04/19/2022 13:56 INDICATION: Upper abdominal pain and flank pain. TECHNIQUE: Computed tomography (CT) of the abdomen and pelvis was performed with 100 mL Omnipaque-350 intravenous contrast. Automated exposure control and iterative reconstruction technique were employe d. The dose-length product was 1607.66 mGy-cm. COMPARISON: None FINDINGS: Discoid atelectasis anteriorly in the bilateral lower lung zones. Heart size is normal. No pericardia l or pleural effusion. Cholecystectomy clips the gallbladder fossa. Liver, pancreas and bilateral adr enal glands are normal. Likely benign subcentimeter low-attenuation splenic lesion most likely repres enting either a cyst or hemangioma. 12 mm low-attenuation left renal cyst. There are small region of cortical scarring at both kidneys likely sequela of prior infection. A few more subtle small regions of decreased parenchymal enhancement at both kidneys which in setting of ongoing urinary tract infect ion or suspicious for developing pyelonephritis. 10 x 9 x 6 cm fat-containing ventral hernia extendin g through a 3.3 cm diameter os just to the right of midline at the upper abdomen. There are few scatt ered clonic diverticula along the descending and sigmoid colon without adjacent inflammatory change t o suggest diverticulitis. Small bowel and appendix are normal. T-shaped IUD in expected position with in the otherwise normal anteverted uterus. Bilateral low-attenuation ovarian cysts/follicles, the lar maria antonia on the right measuring 2.6 cm. Partially decompressed bladder is normal. No free intraperitoneal gas or fluid. No pathologically enlarged abdominal or pelvic lymphadenopathy. Severe facet osteoarthr itis on the right at L5-S1. Otherwise mild to moderate lumbar facet osteoarthritis. Additional osteoa rthritis, mild to moderate at the bilateral sacral iliac joints and mild at the bilateral hip joints. IMPRESSION: 1. Likely developing small regions of pyelonephritis of both kidneys. 2. Moderate-sized fat-containing supraumbilical ventral hernia. 3. IUD in expected position. Reviewed, dictated and finalized at location A. [employer]
[2022-04-19 12:18] LABS: Basophils Percent Auto 0.2 % (0.2-1.2); Eosinophils Percent Auto 0.1 % (0-4.4); Hemoglobin 13.3 g/dL (12.0-15.0); Immature Granulocyte Absolute 0.04 K/mm3 (0.00-0.031); Immature Granulocyte Percent A 0.4 % (0-0.5); Lymphocytes Absolute Auto 0.52 K/mm3 (0.9-3.2); Lymphocytes Percent Auto 5.2 % (18.3-44.2); Mean Corpuscular HGB Conc 33.3 g/dl (32-36); Mean Corpuscular Hemoglobin 30.4 pg (26-34); Mean Corpuscular Volume 91.5 fl (80-100); Mean Platelet Volume 9.6 fl (7.4-10.4); Monocytes Absolute Auto 0.4 K/mm3 (0.1-0.6); Monocytes Percent Auto 3.7 % (2.6-8.5); Neutrophils Percent Auto 90.4 % (45.5-73.1); Platelet Count Result 237 k/mm3 (150-375); Red Blood Count 4.37 M/mm3 (4.2-5.4); Red Cell Distribution Width 13.1 % (11.5-14.5)
[2022-04-19 12:28] LABS: Add Urine Microscopic? YES; Appearance Urine Clear (Clear); Bilirubin Urine Negative (Negative); Blood Urine 1+ (Negative); Color Urine Yellow (Yellow); Glucose Urine UA 3+ mg/dL (Negative); Ketones Urine 1+ mg/dL (Negative); Leukocyte Esterase Ur Negative LEU/UL (Negative); Nitrate Urine Negative (Negative); Protein Urine 2+ mg/dL (Negative); Urobilinogen Urine 0.2 mg/dL (<2.0)
[2022-04-19 12:29] LABS: Alanine Aminotransferase 15 U/L (6-35); Albumin Level 4.1 g/dL (3.5-5.1); Alkaline Phosphatase 87 U/L (38-126); Anion Gap 10 mmol/L (8-16); Aspartate Amino Transferase 19 U/L (14-36); Bilirubin,Total 0.8 mg/dL (0.2-1.3); Blood Urea Nitrogen 14 mg/dL (7-17); Carbon Dioxide 24 mmol/L (22-30); Chloride 97 mmol/L (98-107); Estimated CRCL calculation 111 ml/min; Estimated Glomerular Filt Rate > 60; Glucose 367 mg/dL (65-110); Potassium 3.9 mmol/L (3.4-5.0); Sodium 131 mmol/L (137-145)
--- NOTE | 2022-04-19 12:29 | ED.FEMALEGU ---
HPI - Female Genitourinary General Chief complaint: Urogenital-Female Stated complaint: UTI/FEVER/BACK PAIN Time Seen by Provider: 04/19/22 12:25 Source: patient Mode of arrival: ambulatory Limitations: no limitations History of Present Illness HPI Narrative: 46 years old white female drove herself to the emergency room complaining of burning urination, frequency, back pain, abdominal pain started 5 days ago, today associated with nausea and frequent vomiting and a possible fever. History of diabetes, hyperlipidemia, COPD, hypothyroidism, cholecystectomy and abdominal hernia repair. Patient on aspirin, she vapes, denies alcohol use, quit drug abuse 5 years ago. Related Data Home Medications Medication Instructions Recorded Confirmed aspirin 81 mg tablet,delayed 81 mg PO DAILY 11/07/19 04/16/22 release (Adult Low Dose Aspirin) loratadine 10 mg tablet 10 mg PO DAILY 11/07/19 04/16/22 oxcarbazepine 600 mg tablet 600 mg PO .pm 12/04/19 04/16/22 sertraline 100 mg tablet 200 mg PO DAILY 06/14/20 04/16/22 linaclotide 145 mcg capsule 145 mcg PO DAILY PRN 07/19/20 04/16/22 (Linzess) bupropion HCl 150 mg 24 hr tablet, 100 mg PO QAM 08/12/20 04/16/22 extended release (Wellbutrin XL) multivitamin 1 tablet PO DAILY 08/12/20 04/16/22 levonorgestrel 20 mcg/24 hours (8 1 insert intrauterine ONCE 05/06/21 04/16/22 yrs) 52 mg intrauterine device (Mirena) gabapentin 100 mg capsule 300 mg PO TID 07/09/21 04/16/22 ibuprofen 200 mg capsule 200 mg PO Q6H PRN 07/09/21 04/16/22 omeprazole 20 mg capsule,delayed 20 mg PO DAILY 07/09/21 04/16/22 release prazosin 1 mg capsule 3 mg PO QHS 07/09/21 04/16/22 cholecalciferol (vitamin D3) 50 50 mcg PO DAILY 04/16/22 04/16/22 mcg (2,000 unit) capsule Allergies Allergy/AdvReac Type Severity Reaction Status Date / Time asenapine [From Saphris] Allergy Intermediate numbness Verified 04/16/22 11:16 in mouth, throat capsaicin [From Capzasin] Allergy Mild rash Verified 04/16/22 11:16 menthol [From Capzasin] Allergy Mild rash Verified 04/16/22 11:16 Sulfa (Sulfonamide Allergy Mild RASH Verified 04/16/22 11:16 Antibiotics) erythromycin base AdvReac Mild DIARRHEA Verified 04/19/22 12:42 Review of Systems Review of Systems: All systems reviewed & are unremarkable except as noted in HPI and below PMFSH Past Medical History Medical History Abdominal pain Allergies Anxiety Arthritis Asthma 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 Chronic headaches COPD (chronic obstructive pulmonary disease) Depression DJD of shoulder Drug abuse in remission Excessive daytime sleepiness GERD (gastroesophageal reflux disease) Hepatitis C High cholesterol High risk HPV infection History of hepatitis C History of MRSA infection History of postoperative complication of surgical procedure HPV (human papilloma virus) anogenital infection Hx of colonic polyps IBS (irritable bowel syndrome) IDDM (insulin dependent diabetes mellitus) Incisional hernia without mention of obstruction or gangrene Internal impingement of right shoulder Left shoulder pain Long-term insulin use Memory loss Osteoarthritis PTSD (post-traumatic stress disorder) Right knee DJD Right shoulder pain Shortness of breath Sleep apnea Sleep disorder Smoker Tendinitis of left rotator cuff Thrombophlebitis arm Thyroid disorder Type 2 diabetes mellitus with hyperglycemia Umbilical hernia Double 2008 Vaginal mass Ventral hernia Vertigo Wears dentures Wears glasses Surgical History Surgical History History of colonoscopy History of surgery on arm 2017 History of ventral hernia repair Hx laparoscopic cholecystectomy Hx of umbilical hernia repair 2007 -[place], [place] Hx of ventral hernia repair 2014 [place], [place] Family History Family History (Reviewed 04/19/22 @ 12:59 by Macho Aguilar,
[2022-04-19 12:43] LABS: Mucus Urine Rare /lpf; Squamous Epithelial Cell Urine Few /hpf (Few)
[2022-04-19] MEDS: KETOROLAC 30 MG/ML VIAL (*BKC) IV PUSH (12:45)
[2022-04-19] MEDS: SODIUM CHLORIDE 0.9% IV 1,000 ML 999 ML IV CONT ×2 (13:34→16:06)
[2022-04-19] MEDS: ONDANSETRON INJ 4 MG/2 ML VIAL 8 MG IV PUSH (13:34)
--- NOTE | 2022-04-19 13:48 | PC.NURSE ---
Pt to CT scan via stretcher at this time.
--- NOTE | 2022-04-19 14:45 | PC.NURSE ---
pt requesting pain medication at this time. Dr Aguilar aware, stated once CT is resulted he will address pain. pt updated of plan of care
[2022-04-19] MEDS: HYDROmorphone HCL INJ (*CRX) 1 MG/ML SYR 0.5 MG IV PUSH (16:00)
--- NOTE | 2022-04-19 16:58 | PC.NURSE ---
This RN called dietary and ordered dinner tray for pt at this time.
[2022-04-19 17:21] LABS: SARS-CoV-2 RNA PCR Negative
--- NOTE | 2022-04-19 18:00 | PM.IMHP ---
H&P: HPI History of Present Illness Date/Time: 04/19/22 18:00 Chief Complaint: Fever and back pain. Narrative: This is a 46-year-old female smoker with history of COPD, insulin-dependent diabetes, MRSA infection, hepatitis C, sleep apnea, GERD, and hypothyroidism who presented to the emergency department from home for evaluation of fever and back pain. She has not been feeling well for 5 days with multiple symptoms to include dysuria, urinary frequency and urgency, low back pain, fever to 102?, and nausea and vomiting which developed last night. She has been taking Aleve and tramadol which seems to take the edge off the aching back somewhat. She denies headache, sinus congestion, sore throat, cough, and diarrhea. No rash, joint aches, or swelling. She denies blurry vision, polydipsia, and polyuria. She has not had chest pain or pleuritic pain. She was afebrile on arrival to the emergency department with a normal white blood cell count. Glucose was 367 but her remaining labs were pretty unremarkable. Urine was negative for nitrates and leukocyte esterase and demonstrated [address] of the abdomen pelvis showed findings of likely developing small regions of pyelonephritis of both kidneys and she is being admitted in this setting. Review of Systems Review of Systems: Twelve systems were reviewed and are negative except for as per HPI. 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 High cholesterol History of MRSA infection Hypertension Hypothyroidism Insulin dependent type 2 diabetes mellitus Irritable bowel syndrome Obstructive sleep apnea Osteoarthritis Posttraumatic stress disorder Tobacco abuse Transient ischemic attack Surgical History Surgical History (Updated 04/19/22 @ 22:50 by Vee Courtney PA-C) History of colonoscopy History of colonoscopy with polypectomy History of laparoscopic cholecystectomy History of surgery on arm History of umbilical hernia repair History of ventral hernia repair Family History Family History Mother Diabetes mellitus Asthma Obesity Depression Hypertension Father Brain tumor Depression Social History Social History (Updated 04/19/22 @ 22:51 by Vee Courtney PA-C) Social History: Surrogate medical decision maker: Hai Aguillon, father. Code status: Full code. Smoking status: Current every day smoker Tobacco type: e-cigarettes/vaping Smoking end date: 03/29/21 Alcohol intake: former Alcohol use details: social Substance use: former Substance use type: crack/cocaine, heroin and methamphetamine Last use: 05/26/2017 Additional living arrangements comments: Lives in [place] with parents. 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 Meds Home Medications and Allergies Home Medications Medication Instructions Recorded Confirmed Type aspirin 81 mg tablet,delayed 81 mg PO DAILY 11/07/19 04/16/22 History release (Adult Low Dose Aspirin) loratadine 10 mg tablet 10 mg PO DAILY 11/07/19 04/16/22 History nystatin 100,000 unit/gram topical 1 applic topical .COMPLEX #60 grams 11/13/19 04/16/22 Rx powder oxcarbazepine 600 mg tablet 600 mg PO .pm 12/04/19 04/16/22 History blood-glucose meter #1 ea 02/12/20 04/16/22 Rx lancets 30 gauge (Easy Touch #100 ea 02/12/20 04/16/22 Rx Lancets) sertraline 100 mg tablet 200 mg PO DAILY 06/14/20 04/16/22 History linaclotide 145 mcg capsule 145 mcg PO DAILY PRN 07/19/20 04/16/22 History (Linzess) acetaminophen 500 mg capsule 500 mg PO Q6H PRN fever or pain 07/30/20 04/16/22 Rx #30 caps bupropion HC
[2022-04-19] MEDS: ONDANSETRON INJ 4 MG/2 ML VIAL IV PUSH (18:31)
[2022-04-19] MEDS: SODIUM CHLORIDE 0.9% IV 1,000 ML 150 ML IV CONT (18:31)
--- NOTE | 2022-04-19 19:00 | PC.NURSE ---
report including history and physical and plan of care received from Lauren DOS SANTOS at this time
[2022-04-19 23:58] LABS: Hemoglobin A1C 10.6 % (<5.7)
[2022-04-20] VITALS: BP 136/64; PULSE 103; RESP 18; TEMP 37.1; O2SAT 96
[2022-04-20] MEDS: ONDANSETRON INJ 4 MG/2 ML VIAL IV PUSH (00:41)
[2022-04-20] MEDS: HYDROcodone/acetaminophen (*CRX) 5-325 MG TABLET 1 TAB PO ×2 (00:55→18:33)
[2022-04-20 01:06] VITALS: BMI 45.0
--- NOTE | 2022-04-20 01:12 | ADMGEN ---
This patient, Perla Palomo, was admitted to 3 [facility] Surg Room 304-02 at 0000. Patient/family oriented to hospital policies and general routines including ID bracelet, bed and alarms, visiting hours, pain management, procedures, bathroom and other care routines, personal items, smoking policy, room service/diet, and visiting hours. Information on how to activate the Rapid Response Team has been discussed. Patient/Family are encouraged to report perceived risks to care and to ask questions if they do not understand what they are told or what they should do.
[2022-04-20] MEDS: SODIUM CHLORIDE 0.9% IV 1,000 ML 150 ML IV CONT ×3 (01:54→15:43)
[2022-04-20 06:35] LABS: Influenza A QL RT-PCR Negative (Negative); Influenza B QL RT-PCR Negative (Negative)
[2022-04-20 06:44] LABS: Hematocrit 32.3 % (37.0-47.0); Hemoglobin 10.7 g/dL (12.0-15.0); Mean Corpuscular HGB Conc 33.1 g/dl (32-36); Mean Corpuscular Hemoglobin 30.1 pg (26-34); Mean Corpuscular Volume 90.7 fl (80-100); Mean Platelet Volume 9.7 fl (7.4-10.4); Platelet Count Result 183 k/mm3 (150-375); Red Blood Count 3.56 M/mm3 (4.2-5.4); Red Cell Distribution Width 13.2 % (11.5-14.5); White Blood Count 4.5 K/mm3 (4.5-10.0)
[2022-04-20 06:52] LABS: Anion Gap 4 mmol/L (8-16); Blood Urea Nitrogen 11 mg/dL (7-17); Calcium 7.4 mg/dL (8.4-10.2); Carbon Dioxide 24 mmol/L (22-30); Chloride 104 mmol/L (98-107); Estimated CRCL calculation 151 ml/min; Estimated Glomerular Filt Rate > 60; Glucose 276 mg/dL (65-110); Magnesium 1.7 mg/dL (1.6-2.3); Potassium 3.7 mmol/L (3.4-5.0); Sodium 132 mmol/L (137-145)
[2022-04-20 07:00] LABS: Glucose Point of Care 264 mg/dl (65-105)
[2022-04-20 07:51] LABS: Glucose Point of Care 270 mg/dl (65-105)
[2022-04-20] MEDS: ENOXAPARIN 40 MG/0.4 ML SYRINGE SUB-Q (08:45)
[2022-04-20 08:49] LABS: Free T4 Free Thyroxine Reflex 1.01 ng/dL (0.78-2.19)
[2022-04-20 09:48] LABS: Total Triiodothyronine (T3) 0.78 NG/ML (0.97-1.69)
[2022-04-20] MEDS: INSULIN ASPART (*BKC) 100 UNITS/ML SUB-Q ×3 (10:17→18:31)
[2022-04-20 11:21] LABS: Glucose Point of Care 313 mg/dl (65-105)
[2022-04-20 14:00] VITALS: BP 134/69; PULSE 92; RESP 20; TEMP 36; O2SAT 97
--- NOTE | 2022-04-20 14:05 | PM.IMPN ---
Progress Note: A&P Assessment and Plan (1) Pyelonephritis: Code(s): N12 - Tubulo-interstitial nephritis, not specified as acute or chronic Status: Acute Assessment and Plan: Urine culture positive for G engative bacilli outside lab with urine culture positive for pansensitive Kleb pneumonia Continue Rocephin and PRN Zofran monitor (2) Insulin dependent type 2 diabetes mellitus: Code(s): E11.9 - Type 2 diabetes mellitus without complications; Z79.4 - roasterman (current) use of insulin Status: Acute Assessment and Plan: Continue Long activing and SSI with accucheks insulin regirmen monitor cclosely (3) Hyperglycemia: Code(s): R73.9 - Hyperglycemia, unspecified Status: Acute Assessment and Plan: A1c 10.2 Continue insulin regimen as above (4) Obstructive sleep apnea: Code(s): G47.33 - Obstructive sleep apnea (adult) (pediatric) Status: Acute Assessment and Plan: continue CPAP (5) Hypothyroidism: Code(s): E03.9 - Hypothyroidism, unspecified Status: Acute Assessment and Plan: Continue home levothyroxine (6) Chronic obstructive pulmonary disease: Code(s): J44.9 - Chronic obstructive pulmonary disease, unspecified Status: Acute Assessment and Plan: continue home bronchodilators (7) Hypertension: Code(s): I10 - Essential (primary) hypertension Status: Acute Subjective Date/time seen: 04/20/22 14:05 Review of Systems Review of Systems: seen and examined at bedside this morning, noted nausea and vomiting, otherwise denies any chest pain, SOB, abd pain or dysuria. All systems reviewed & are unremarkable except as noted in HPI and below Exam Const: Other: Well-developed, nontoxic-appearing female lying on the right side in bed. Weight: 122.7 kilograms. BMI: 45.0. HENMT: Other: Normocephalic, atraumatic. Nares patent bilaterally. Edentulous. Tacky mucous membranes. Eyes: Other: Pupils are reactive. Extraocular motions intact. Sclerae anicteric. Neck: Other: Supple. Exam limited due to neck circumference. Resp: Other: Respirations are nonlabored and lungs are clear to auscultation. Cardio: Other: Regular rate rhythm with normal S1-S2. GI: Other: Abdomen is soft, obese, and nondistended with positive bowel sounds. Positive right-sided CVA tenderness. No guarding or rebound tenderness. Skin: Other: Warm and dry. Neuro: Other: Alert. Cranial nerves 2-12 grossly intact. No gross focal deficits schedule conversation. Extrem: Other: No cyanosis, clubbing, or edema. Peripheral pulses intact. Psych: Other: Pleasant cooperative with appropriate mood and affect. Objective Data Vital Signs Vital Signs: Vital Signs - 24 hr 04/19/22 14:09 04/19/22 15:34 04/19/22 16:06 Temperature Pulse Rate 107 H 104 H 101 H Respiratory Rate 17 18 15 Blood Pressure 122/73 131/85 152/87 H Pulse Oximetry 99 95 94 04/19/22 16:56 04/19/22 18:28 04/19/22 19:00 Temperature Pulse Rate 100 107 H Respiratory Rate 14 18 Blood Pressure 134/89 129/67 157/86 H Pulse Oximetry 96 97 96 04/19/22 19:01 04/19/22 19:15 04/19/22 19:16 Temperature Pulse Rate Respiratory Rate Blood Pressure 145/78 H Pulse Oximetry 95 94 94 04/19/22 19:30 04/19/22 19:31 04/19/22 19:46 Temperature Pulse Rate Respiratory Rate Blood Pressure 144/78 H 138/84 Pulse Oximetry 97 98 96 04/19/22 20:09 04/19/22 20:15 04/19/22 20:16 Temperature Pulse Rate Respiratory Rate Blood Pressure 129/84 Pulse Oximetry 95 95 95 04/19/22 20:30 04/19/22 20:31 04/19/22 20:45 Temperature Pulse Rate Respiratory Rate Blood Pressure 124/67 126/71 Pulse Oximetry 91 91 91 04/19/22 20:46 04/19/22 21:00 04/19/22 21:01 Temperature Pulse Rate Respiratory Rate Blood Pressure 126/66 Pulse Oximetry 92 91 91 04/19/22 21:15
[2022-04-20 15:40] VITALS: BMI 45.0
[2022-04-20] MEDS: GABAPENTIN 300 MG CAPSULE PO (16:59)
[2022-04-20] MEDS: OMEGA 3 POLYUNSAT FATTY ACIDS 1 GM CAP 2 GM PO (16:59)
[2022-04-20 17:24] LABS: Glucose Point of Care 248 mg/dl (65-105)
[2022-04-20] MEDS: INSULIN ASPART (*BKC) 100 UNITS/ML 8 UNITS SUB-Q (18:30)
[2022-04-20] MEDS: INSULIN HUMAN NPH (*BKC) 100 UNITS/ML 9 UNITS SUB-Q (18:31)
[2022-04-20] MEDS: PRAZOSIN HCL 1 MG CAPSULE 3 MG PO (21:27)
[2022-04-20] MEDS: GABAPENTIN 300 MG CAPSULE 600 MG PO (21:27)
[2022-04-20 21:28] LABS: Glucose Point of Care 232 mg/dl (65-105)
[2022-04-20] MEDS: OXcarbazepine 300 MG TABLET 600 MG PO (21:28)
--- NOTE | 2022-04-20 23:39 | PCRCNOTE ---
pt diana burt she states it dont work she takes symbicort at home
[2022-04-21 01:30] VITALS: PULSE 88; RESP 18; O2SAT 93
[2022-04-21 05:09] VITALS: BP 101/62; PULSE 86; RESP 18; TEMP 36.3; O2SAT 94
[2022-04-21 06:25] LABS: Basophils Percent Auto 0.4 % (0.2-1.2); Eosinophils Absolute Auto 0.1 K/mm3 (0-0.3); Eosinophils Percent Auto 2.6 % (0-4.4); Immature Granulocyte Absolute 0.06 K/mm3 (0.00-0.031); Immature Granulocyte Percent A 1.2 % (0-0.5); Lymphocytes Absolute Auto 1.27 K/mm3 (0.9-3.2); Lymphocytes Percent Auto 25.1 % (18.3-44.2); Mean Corpuscular HGB Conc 33.3 g/dl (32-36); Mean Corpuscular Hemoglobin 30.2 pg (26-34); Mean Corpuscular Volume 90.6 fl (80-100); Mean Platelet Volume 9.6 fl (7.4-10.4); Monocytes Absolute Auto 0.6 K/mm3 (0.1-0.6); Monocytes Percent Auto 11.9 % (2.6-8.5); Neutrophils Percent Auto 58.8 % (45.5-73.1); Platelet Count Result 185 k/mm3 (150-375); Red Blood Count 3.31 M/mm3 (4.2-5.4); Red Cell Distribution Width 13.2 % (11.5-14.5); White Blood Count 5.1 K/mm3 (4.5-10.0)
[2022-04-21 06:43] LABS: Alanine Aminotransferase 12 U/L (6-35); Alkaline Phosphatase 62 U/L (38-126); Anion Gap 5 mmol/L (8-16); Aspartate Amino Transferase 21 U/L (14-36); Bilirubin,Total 0.3 mg/dL (0.2-1.3); Blood Urea Nitrogen 10 mg/dL (7-17); Calcium 7.4 mg/dL (8.4-10.2); Carbon Dioxide 23 mmol/L (22-30); Chloride 107 mmol/L (98-107); Estimated CRCL calculation 154 ml/min; Estimated Glomerular Filt Rate > 60; Glucose 214 mg/dL (65-110); Potassium 3.4 mmol/L (3.4-5.0); Sodium 135 mmol/L (137-145)
[2022-04-21 07:38] LABS: Glucose Point of Care 244 mg/dl (65-105)
[2022-04-21] MEDS: ENOXAPARIN 40 MG/0.4 ML SYRINGE SUB-Q (08:17)
[2022-04-21] MEDS: HYDROcodone/acetaminophen (*CRX) 5-325 MG TABLET 1 TAB PO (08:17)
[2022-04-21] MEDS: GABAPENTIN 300 MG CAPSULE PO (08:18)
[2022-04-21] MEDS: buPROPion HCL XL (24 HR) 150 MG TABCR 100 MG PO (08:18)
[2022-04-21] MEDS: lisinopriL 5 MG TABLET PO (08:18)
[2022-04-21] MEDS: SERTRALINE HCL 50 MG TABLET 200 MG PO (08:18)
[2022-04-21] MEDS: ASPIRIN 81 MG ENTERIC TABLET PO (08:18)
[2022-04-21] MEDS: PANTOPRAZOLE 40 MG TABLET PO (08:19)
[2022-04-21] MEDS: OMEGA 3 POLYUNSAT FATTY ACIDS 1 GM CAP 2 GM PO (08:19)
[2022-04-21] MEDS: INSULIN GLARGINE (*BKC) 100 UNITS/ML 30 UNITS SUB-Q (08:19)
[2022-04-21] MEDS: INSULIN ASPART (*BKC) 100 UNITS/ML 8 UNITS SUB-Q ×2 (08:21→14:01)
[2022-04-21] MEDS: INSULIN ASPART (*BKC) 100 UNITS/ML SUB-Q ×2 (08:21→14:01)
--- NOTE | 2022-04-21 10:58 | PCRCNOTE ---
window of time for tx passed
[2022-04-21 11:38] LABS: Glucose Point of Care 317 mg/dl (65-105)
--- NOTE | 2022-04-21 12:36 | PM.DS ---
DS: Admitting Diagnosis Discharge Date 04/21/2022 Admitting Diagnosis Acute pyelonephritis DS: Discharge Diagnosis Discharge Diagnosis (1) Pyelonephritis: Code(s): N12 - Tubulo-interstitial nephritis, not specified as acute or chronic Status: Acute DS: Summary Hospital Course Reason for hospitalization: Acute pyelonephritis Hospital Course: (1) Pyelonephritis: ?Code(s): N12 - Tubulo-interstitial nephritis, not specified as acute or chronic ?Status:?Acute ?Assessment and Plan: Urine culture positive for pansensitive Klebsiella pneumonia outside lab with urine culture positive for pansensitive Kleb pneumonia Continue Rocephin and PRN Zofran Discharged on 4 days course of Levaquin monitor (2) Insulin dependent type 2 diabetes mellitus: ?Code(s): E11.9 - Type 2 diabetes mellitus without complications; Z79.4 - vermin exterminator (current) use of insulin ?Status:?Acute ?Assessment and Plan: Continue Long activing and SSI with accucheks insulin regirmen Discharge home diabetic regimen (3) Hyperglycemia: ?Code(s): R73.9 - Hyperglycemia, unspecified ?Status:?Acute ?Assessment and Plan: A1c 10.2 Resolved (4) Obstructive sleep apnea: ?Code(s): G47.33 - Obstructive sleep apnea (adult) (pediatric) ?Status:?Acute ?Assessment and Plan: continue CPAP (5) Hypothyroidism: ?Code(s): E03.9 - Hypothyroidism, unspecified ?Status:?Acute ?Assessment and Plan: Continue home levothyroxine (6) Chronic obstructive pulmonary disease: ?Code(s): J44.9 - Chronic obstructive pulmonary disease, unspecified ?Status:?Acute ?Assessment and Plan: continue home bronchodilators (7) Hypertension: ?Code(s): I10 - Essential (primary) hypertension ?Status:?Acute Continue home medication Time Spent with Patient Time attestation: Total time spent providing and/or coordinating discharge services: more than 35 minutes Exam Const: General: comfortable HENMT: Mouth: Yes moist mucous membranes Eyes: General: appearance normal, both eyes and all related structures Neck: Other: No palpable masses Resp: Effort & Inspection: normal respiratory effort Auscultation: clear to auscultation bilaterally Cardio: Rate: regular rate Rhythm: regular rhythm GI: GI Palp: Yes Soft to palpation, Yes Firmness to palpation present (GI), No Tenderness to palpation present (GI), No Guarding due to palpation present (GI) and No Hernia present Auscultation: normal bowel sounds Skin: General skin exam: no rashes or lesions noted Neuro: Motor exam (neuro): 5/5 motor strength present throughout and Normal motor muscle tone present throughout Extrem: General: normal to inspection Psych: Mental Status: mental status grossly normal DS: Data Data Completed and Pending Labs on day of discharge: Labs from last 24 hours 04/21/22 04/21/22 04/21/22 11:25 07:29 05:41 WBC RBC Hgb Hct MCV MCH MCHC RDW Plt Count MPV Immature Gran % (Auto) Neut % (Auto) Lymph % (Auto) [place] % (Auto) Eos % (Auto) Baso % (Auto) Lymph # (Auto) [place] # (Auto) Eos # (Auto) Baso # (Auto) Abs Immat Gran (auto) Absolute Neuts (auto) Absolute Nucleated RBC Nucleated RBC % Sodium 135 L Potassium 3.4 Chloride 107 Carbon Dioxide 23 Anion Gap 5 L BUN 10 Creatinine 0.50 L Estim Creat Clear Calc 154 Estimated GFR > 60 Glucose 214 H POC Capillary Glucose 317 H 244 H Calcium 7.4 L Total Bilirubin 0.3 AST 21 ALT 12 Alkaline Phosphatase 62 Total Protein 6.0 L Albumin 3.0 L 04/21/22 04/20/22 04/20/22 05:41 21:22 17:20 WBC 5.1 RBC 3.31 L Hgb 10.0 L Hct 30.0 L MCV 90.6 MCH 30.2 MCHC 33.3 RDW 13.2 Plt Count 185 MPV 9.6 Immature Gran % (Auto) 1.2 H Neut % (Auto) 58.8 Lymph % (Auto) 25.1 [place] %
[2022-04-21] MEDS: SIMVASTATIN 10 MG TABLET PO (14:03)
[2022-04-21] MEDS: LORATADINE 10 MG TABLET PO (14:03)
[2022-04-21 14:06] VITALS: BP 127/78; PULSE 86; RESP 18; TEMP 36.1; O2SAT 97
== END 2022-04-21 15:50 | disposition home or self-care (01) | DRG 690 ==
LOC: ANHED 16:03 → ANH3MEDSUR 19:25
PROVIDERS: Emergency Medicine; Physician Assistant; Admitting Provider Internal Medicine; Emergency Provider Emergency Medicine; Visit Provider Internal Medicine
DX: N10 Acute pyelonephritis (principal); Z68.42 Body mass index [BMI] 45.0-49.9, adult; B96.1 Klebsiella pneumoniae [K. pneumoniae] as the cause of diseases classified elsewhere; E78.5 Hyperlipidemia, unspecified; J44.9 Chronic obstructive pulmonary disease, unspecified; E03.9 Hypothyroidism, unspecified; K21.9 Gastro-esophageal reflux disease without esophagitis; G47.33 Obstructive sleep apnea (adult) (pediatric); Z20.822 Contact with and (suspected) exposure to COVID-19; F32.A Depression, unspecified; E11.65 Type 2 diabetes mellitus with hyperglycemia; E66.9 Obesity, unspecified; Z79.4 Long term (current) use of insulin; Z79.82 Long term (current) use of aspirin; Z79.899 Other long term (current) drug therapy; Z88.2 Allergy status to sulfonamides
CPT/HCPCS: 36415; 74177; 80048; 80053; 81001; 81025; 82948; 83036; 83735; 84439; 84443; 84480; 85025; 85027; 87040; 87077; 87086; 87186; 87502; 94660; 96361; 96365; 96366; 96367; 96372; 96375; 96376; 99285; A9270; G0378; J0131; J0696; J1170; J1650; J1815; J1885; J2405; J7030; Q9967; U0003; U0005

== ENCOUNTER 2022-07-14 13:14 | Outpatient (CLI) | payer MEDICARE, MEDICAID, SELFPAY ==
[2022-07-14 14:16] LABS: Hematocrit 37.2 % (37.0-47.0); Hemoglobin 12.6 g/dL (12.0-15.0); Mean Corpuscular HGB Conc 33.9 g/dl (32-36); Mean Corpuscular Hemoglobin 29.7 pg (26-34); Mean Corpuscular Volume 87.7 fl (80-100); Mean Platelet Volume 9.6 fl (7.4-10.4); Platelet Count Result 289 k/mm3 (150-375); Red Blood Count 4.24 M/mm3 (4.2-5.4); Red Cell Distribution Width 12.8 % (11.5-14.5)
[2022-07-14 14:25] LABS: Appearance Urine Clear (Clear); Bacteria Urine Rare /hpf; Bilirubin Urine Negative (Negative); Blood Urine Negative (Negative); Color Urine Yellow (Yellow); Glucose Urine UA 3+ mg/dL (Negative); Ketones Urine Negative (Negative); Leukocyte Esterase Ur Negative LEU/UL (Negative); Nitrate Urine Negative (Negative); Protein Urine 2+ mg/dL (Negative); RBC Urine 0-2 /hpf (0-2); Specific Grav Ur 1.024 (1.001-1.035); Squamous Epithelial Cell Urine Few /hpf (Few); Urobilinogen Urine 0.2 mg/dL (<2.0); WBC Urine 0-5 /hpf; pH Urine 5.5 (5.0-9.0)
[2022-07-14 14:27] LABS: Add Urine Microscopic? YES
[2022-07-14 14:33] LABS: Albumin Level 3.8 g/dL (3.5-5.1); Anion Gap 7 mmol/L (8-16); Blood Urea Nitrogen 21 mg/dL (7-17); Calcium 8.6 mg/dL (8.4-10.2); Carbon Dioxide 22 mmol/L (22-30); Chloride 107 mmol/L (98-107); Estimated Glomerular Filt Rate > 60; Glucose 231 mg/dL (65-110); Phosphorus 2.8 mg/dL (2.5-4.5); Potassium 4.3 mmol/L (3.4-5.0); Sodium 136 mmol/L (137-145)
[2022-07-14 14:37] LABS: Creatinine Urine 106.7 mg/dL; Total Protein Urine Random 119 mg/dL; Ur Ttl Prot Creatinine Ratio 1.12 mg/mg (0-0.20)
[2022-07-14 14:54] LABS: Complement C3 154 mg/dL (88-165)
[2022-07-14 15:20] LABS: Erythrocyte Sedimentation Rate 99 mm/hr (0-20)
[2022-07-17 06:55] LABS: Hepatitis C RNA, Quant PCR <15 IU/mL
[2022-07-17 16:47] LABS: Complement Total CH50 >60 U/mL (31-60)
[2022-07-17 21:43] LABS: Kappa\\Lambda Light Chains 1.59 (0.26-1.65); Lambda Light Chain 21.9 mg/L (5.7-26.3)
== END 2022-07-14 13:15 | disposition home or self-care (01) ==
LOC: ANHLAB 13:21
PROVIDERS: PCP Internal Medicine; Visit Provider Internal Medicine Nephrology
DX: R94.4 Abnormal results of kidney function studies (principal)
CPT/HCPCS: 36415; 80069; 81001; 82570; 83883; 84156; 85027; 85652; 86038; 86160; 86162; 86334; 87522

== ENCOUNTER 2022-07-17 12:34 | Outpatient (NON) | payer MEDICARE, MEDICAID, SELFPAY ==
[2022-07-23 15:02] LABS: Albumin 79 %; Creat 24 Hr 1.98 g/24 h (0.50-2.15); Measured Kappa Chains <1.00 mg/dL (<2.00); Measured Lambda Chains <1.00 mg/dL (<2.00); Pro/Creat Ratio 494 mg/g creat (<150); Protein,total, 24 Hr Ur 977 mg/24 h (<150)
== END 2022-07-17 12:35 | disposition home or self-care (01) ==
PROVIDERS: PCP Internal Medicine; Visit Provider Internal Medicine Nephrology
DX: R94.4 Abnormal results of kidney function studies (principal)
CPT/HCPCS: 86335

== ENCOUNTER 2022-07-22 11:42 | Outpatient (CLI) | payer MEDICARE, MEDICAID, SELFPAY ==
[2022-07-22 19:37] LABS: Basophils Percent Auto 0.2 % (0.2-1.2); Eosinophils Absolute Auto 0.1 K/mm3 (0-0.3); Eosinophils Percent Auto 1.5 % (0-4.4); Hematocrit 39.2 % (37.0-47.0); Hemoglobin 13.4 g/dL (12.0-15.0); Immature Granulocyte Absolute 0.04 K/mm3 (0.00-0.031); Immature Granulocyte Percent A 0.5 % (0-0.5); Lymphocytes Absolute Auto 2.17 K/mm3 (0.9-3.2); Lymphocytes Percent Auto 26.4 % (18.3-44.2); Mean Corpuscular HGB Conc 34.2 g/dl (32-36); Mean Corpuscular Hemoglobin 29.8 pg (26-34); Mean Corpuscular Volume 87.3 fl (80-100); Mean Platelet Volume 9.9 fl (7.4-10.4); Monocytes Absolute Auto 0.5 K/mm3 (0.1-0.6); Monocytes Percent Auto 6.6 % (2.6-8.5); Neutrophils Absolute Auto 5.3 K/mm3 (1.3-6.7); Neutrophils Percent Auto 64.8 % (45.5-73.1); Platelet Count Result 335 k/mm3 (150-375); Red Blood Count 4.49 M/mm3 (4.2-5.4); Red Cell Distribution Width 12.5 % (11.5-14.5); White Blood Count 8.2 K/mm3 (4.5-10.0)
[2022-07-22 19:51] LABS: Alanine Aminotransferase 14 U/L (6-35); Alkaline Phosphatase 94 U/L (38-126); Anion Gap 9 mmol/L (8-16); Aspartate Amino Transferase 18 U/L (14-36); Bilirubin,Total 0.4 mg/dL (0.2-1.3); Blood Urea Nitrogen 19 mg/dL (7-17); Calcium 8.7 mg/dL (8.4-10.2); Carbon Dioxide 17 mmol/L (22-30); Chloride 109 mmol/L (98-107); Cholesterol 245 mg/dL (0-200); Estimated Glomerular Filt Rate > 60; Glucose 256 mg/dL (65-110); HDL Direct 25 mg/dL; Potassium 4.1 mmol/L (3.4-5.0); Sodium 135 mmol/L (137-145); Triglycerides 399 mg/dL (<150)
[2022-07-22 20:03] LABS: LDL Cholesterol Direct 135 mg/dL
== END 2022-07-22 11:43 | disposition home or self-care (01) ==
LOC: ANHGOSHLAB 11:46
PROVIDERS: Nurse Practitioner; PCP Internal Medicine; Visit Provider Internal Medicine Endocrinology, Diabetes & Metabolism
DX: E78.00 Pure hypercholesterolemia, unspecified (principal)
CPT/HCPCS: 36415; 80053; 80061; 85025

== ENCOUNTER 2022-07-23 15:58 | Outpatient (CLI) | payer MEDICARE, MEDICAID, SELFPAY ==
[2022-07-23 18:51] LABS: Erythrocyte Sedimentation Rate 57 mm/hr (0-20)
[2022-07-23 19:41] LABS: Rheumatoid Factor < 8.6 IU/ML (<12)
[2022-07-26 09:34] LABS: SM Antibody <1.0; SM/RNP Antibody <1.0; SS-A <1.0; SS-B <1.0
[2022-07-29 12:32] LABS: Anti Glomerular Basement Memb <1.0 AI (<1.0)
[2022-07-30 02:08] LABS: ANCA Screen Negative (Negative)
[2022-07-31 17:29] LABS: Cryoglobulin, QL Negative (Negative)
== END 2022-07-23 15:59 | disposition home or self-care (01) ==
LOC: ANHGOSHLAB 16:00
PROVIDERS: PCP Internal Medicine; Visit Provider Internal Medicine Nephrology
DX: R70.0 Elevated erythrocyte sedimentation rate (principal)
CPT/HCPCS: 36415; 82595; 83520; 85652; 86036; 86225; 86235; 86430

== ENCOUNTER → 2022-08-31 16:57 | Outpatient (CLI) | payer MEDICARE, MEDICAID, SELFPAY ==
--- NOTE | ~2022-08-31 | XR_ITS ---
Right foot Technique: AP, oblique, and lateral views were obtained. Clinical History: Sprain Findings: Suggestion of focal cortical step-off at the proximal aspect of the fifth proximal phalanx, and a nondisplaced subtle fracture is not completely excluded. No other fracture or dislocation seen . Joint spaces are preserved without erosive or degenerative change. Soft tissues are unremarkable. Impression: Questionable very subtle nondisplaced fracture at the proximal aspect of the fifth proximal phalanx. Correlate with point tenderness. Reviewed, dictated and finalized at location M. Impression: Questionable very subtle nondisplaced fracture at the proximal aspect of the fi fth proximal phalanx. Correlate with point tenderness.
== END ==
PROVIDERS: PCP Nurse Practitioner; Visit Provider Nurse Practitioner
DX: S93.504A Unspecified sprain of right lesser toe(s), initial encounter (principal); X58.XXXA Exposure to other specified factors, initial encounter
CPT/HCPCS: 73620

== ENCOUNTER 2022-09-04 15:03 | Emergency (ER) | payer MEDICARE, MEDICAID, SELFPAY ==
--- NOTE | 2022-09-04 15:06 | ED.UPPEXIN ---
HPI - Extremity Injury (Upper) General Chief Complaint: Extremity Injury, Upper Stated Complaint: lt thumb pain Time Seen by Provider: 09/04/22 15:05 Source: patient Mode of arrival: ambulatory Limitations: no limitations History of Present Illness HPI narrative: Deepthi is a 46-year-old female patient presenting to the clinic today with complaints of left thumb pain x1.5 weeks. States no known injury but uses this a lot to hold her tablet up and hold her thumb out. States she is having pain with flexion and extension of the left thumb. States that when flexing and extending her thumb it is getting caught. Related Data Home Medications Medication Instructions Recorded Confirmed aspirin 81 mg tablet,delayed 81 mg PO DAILY 11/07/19 09/04/22 release (Adult Low Dose Aspirin) loratadine 10 mg tablet 10 mg PO DAILY 11/07/19 09/04/22 oxcarbazepine 600 mg tablet 600 mg PO .pm 12/04/19 09/04/22 sertraline 100 mg tablet 200 mg PO DAILY 06/14/20 09/04/22 multivitamin 1 tablet PO DAILY 08/12/20 09/04/22 levonorgestrel 21 mcg/24 hours (8 1 insert intrauterine ONCE 05/06/21 09/04/22 yrs) 52 mg intrauterine device (Mirena) gabapentin 100 mg capsule 300 mg PO TID 07/09/21 09/04/22 ibuprofen 200 mg capsule 200 mg PO Q6H PRN Pain 07/09/21 09/04/22 omeprazole 20 mg capsule,delayed 20 mg PO DAILY 07/09/21 09/04/22 release prazosin 1 mg capsule 3 mg PO QHS 07/09/21 09/04/22 cholecalciferol (vitamin D3) 50 50 mcg PO DAILY 04/16/22 09/04/22 mcg (2,000 unit) capsule bupropion HCl 150 mg 24 hr tablet, 150 mg PO QAM 07/23/22 09/04/22 extended release (Wellbutrin XL) calcium carbonate 600 mg calcium 600 mg PO DAILY 07/23/22 09/04/22 (1,500 mg) tablet (Calcium) insulin aspart U-100 100 unit/mL See Rx Instructions .Route .COMPLEX 09/04/22 09/04/22 (3 mL) subcutaneous pen (Novolog FlexPen U-100 Insulin aspart) insulin pump cart,automated,BT 09/04/22 09/04/22 (Omnipod 5 G6 Pods (Gen 5) subcutaneous cartridge) insulin pump cartridge,automated 09/04/22 09/04/22 dose,BT with controller subcutaneous (Omnipod 5 G6 Intro Kit (Gen 5) subcutaneous cartridge with controller) rosuvastatin 40 mg tablet 40 mg PO DAILY 09/04/22 09/04/22 Allergies Allergy/AdvReac Type Severity Reaction Status Date / Time asenapine [From Saphris] Allergy Intermediate numbness Verified 09/04/22 15:13 in mouth, throat capsaicin [From Capzasin] Allergy Mild rash Verified 09/04/22 15:13 Sulfa (Sulfonamide Allergy Mild RASH Verified 09/04/22 15:13 Antibiotics) erythromycin base AdvReac Mild DIARRHEA Verified 09/04/22 15:13 Review of Systems Review of Systems: Pertinent positives per HPI. Patient denies any fever, chills, rash, headache, visual changes, dizziness, cough, runny nose, sore throat, shortness of breath, chest pain, palpitations, nausea, vomiting, diarrhea, constipation, abdominal pain, or any urinary issues. 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 High cholesterol History of MRSA infection Hypertension Hypothyroidism Insulin dependent type 2 diabetes mellitus Irritable bowel syndrome Obstructive sleep apnea Osteoarthritis Posttraumatic stress disorder Tobacco abuse Transient ischemic attack Surgical History Surgical History History of colonoscopy History of colonoscopy with polypectomy History of laparoscopic cholecystectomy History of surgery on arm History of umbilical hernia repair History of ventral hernia repair Family History Family History Mother Diabete
[2022-09-04 15:13] VITALS: BP 147/77; PULSE 102; RESP 16; TEMP 36.2; O2SAT 99
== END 2022-09-04 15:44 | disposition home or self-care (01) ==
PROVIDERS: Emergency Provider Nurse Practitioner Family; PCP Internal Medicine
DX: M77.8 Other enthesopathies, not elsewhere classified (principal); M65.312 Trigger thumb, left thumb; Z87.891 Personal history of nicotine dependence; M19.90 Unspecified osteoarthritis, unspecified site; F41.9 Anxiety disorder, unspecified; F32.A Depression, unspecified; J44.9 Chronic obstructive pulmonary disease, unspecified; K21.9 Gastro-esophageal reflux disease without esophagitis; E78.00 Pure hypercholesterolemia, unspecified; Z86.14 Personal history of Methicillin resistant Staphylococcus aureus infection; I10 Essential (primary) hypertension; E11.9 Type 2 diabetes mellitus without complications; Z79.4 Long term (current) use of insulin; Z86.73 Personal history of transient ischemic attack (TIA), and cerebral infarction without residual deficits
CPT/HCPCS: 99213; G0463

== ENCOUNTER 2022-11-10 02:54 | Day surgery (SDC) | payer MEDICARE, MEDICAID, SELFPAY ==
[2022-11-09 14:04] VITALS: BMI 47.5
[2022-11-10] VITALS (13 sets, daily range): BP systolic 126–145; BP diastolic 74–94; PULSE 82–98; RESP 16–18; TEMP 36.4; O2SAT 95–98; BMI 48.4
--- NOTE | 2022-11-10 08:25 | SUR.PREOP ---
BEDSIDE POC URINE TEST PERFORMED: NEGATIVE RESULT.
[2022-11-10 08:35] LABS: Basophils Percent Auto 0.4 % (0.2-1.2); Eosinophils Absolute Auto 0.1 K/mm3 (0-0.3); Eosinophils Percent Auto 1.9 % (0-4.4); Hematocrit 39.7 % (37.0-47.0); Hemoglobin 13.3 g/dL (12.0-15.0); Immature Granulocyte Absolute 0.02 K/mm3 (0.00-0.031); Immature Granulocyte Percent A 0.3 % (0-0.5); Lymphocytes Absolute Auto 2.45 K/mm3 (0.9-3.2); Lymphocytes Percent Auto 32.5 % (18.3-44.2); Mean Corpuscular HGB Conc 33.5 g/dl (32-36); Mean Corpuscular Volume 89.6 fl (80-100); Mean Platelet Volume 9.7 fl (7.4-10.4); Monocytes Absolute Auto 0.6 K/mm3 (0.1-0.6); Monocytes Percent Auto 7.3 % (2.6-8.5); Neutrophils Absolute Auto 4.3 K/mm3 (1.3-6.7); Neutrophils Percent Auto 57.6 % (45.5-73.1); Platelet Count Result 249 k/mm3 (150-375); Red Blood Count 4.43 M/mm3 (4.2-5.4); Red Cell Distribution Width 13.2 % (11.5-14.5); White Blood Count 7.5 K/mm3 (4.5-10.0)
[2022-11-10 08:42] LABS: Anion Gap 3 mmol/L (8-16); Blood Urea Nitrogen 19 mg/dL (7-17); Calcium 8.9 mg/dL (8.4-10.2); Carbon Dioxide 26 mmol/L (22-30); Chloride 104 mmol/L (98-107); Estimated CRCL calculation 114 ml/min; Estimated Glomerular Filt Rate > 60; Glucose 293 mg/dL (65-110); Potassium 4.1 mmol/L (3.4-5.0); Sodium 133 mmol/L (137-145)
[2022-11-10] MEDS: SODIUM CHLORIDE 0.9% IV 500 ML 100 ML IV CONT (09:30)
[2022-11-10] MEDS: ASPIRIN 325 MG TABLET (09:40)
[2022-11-10] MEDS: CLOPIDOGREL BISULFATE 300 MG TABLET 600 MG (09:40)
--- NOTE | 2022-11-10 09:40 | SUR.PREOP ---
DR. SNELL HERE TO SEE PT BEDSIDE PRE PROCEDURE. PLAVIX 600MG PO AND ASA 325MG PO GIVEN ORDERED PRE CATH BY DR. SNLEL.
--- NOTE | 2022-11-10 09:50 | WPDHPUPDATE1 ---
History and Physical Update Update Date/Time: 11/10/22 09:50 History and Physical has been reviewed, including an updated exam of the patient. There are NO changes in the patient's condition. Risks, benefits, and alternatives have been discussed and questions answered. Patient agrees to proceed with procedure.
--- NOTE | 2022-11-10 09:50 | WPDMODSED ---
Moderate Sedation Note-Pt Data Patient Data Diagnosis: Abnormal stress test Present Complaint: Abnormal stress test Procedure to be performed/Plan: Coronary angiography, left heart cath, +/- percutaneous coronary intervention Allergies Allergy/AdvReac Type Severity Reaction Status Date / Time asenapine [From Saphris] Allergy Intermediate numbness Verified 11/10/22 08:25 in mouth, throat capsaicin [From Capzasin] Allergy Mild rash Verified 11/10/22 08:25 Sulfa (Sulfonamide Allergy Mild RASH Verified 11/10/22 08:25 Antibiotics) erythromycin base AdvReac Mild DIARRHEA Verified 11/10/22 08:25 Home Medications Medication Instructions Recorded Confirmed Type aspirin 81 mg tablet,delayed 81 mg PO DAILY 11/07/19 11/09/22 History release (Adult Low Dose Aspirin) loratadine 10 mg tablet 10 mg PO DAILY 11/07/19 11/09/22 History oxcarbazepine 600 mg tablet 600 mg PO .pm 12/04/19 11/09/22 History sertraline 100 mg tablet 200 mg PO DAILY 06/14/20 11/09/22 History multivitamin 1 tablet PO DAILY 08/12/20 11/09/22 History levonorgestrel 21 mcg/24 hours (8 1 insert intrauterine ONCE 05/06/21 11/09/22 History yrs) 52 mg intrauterine device (Mirena) gabapentin 100 mg capsule 300 mg PO DAILY 07/09/21 11/09/22 History ibuprofen 200 mg capsule 800 mg PO Q6H PRN Pain 07/09/21 11/09/22 History omeprazole 20 mg capsule,delayed 20 mg PO DAILY 07/09/21 11/09/22 History release prazosin 1 mg capsule 3 mg PO QHS 07/09/21 11/09/22 History ipratropium 0.5 mg-albuterol 3 mg 3 ml inhalation QID PRN shortness 07/10/21 11/09/22 Rx (2.5 mg base)/3 mL nebulization of breath #180 mL soln cholecalciferol (vitamin D3) 50 50 mcg PO DAILY 04/16/22 11/09/22 History mcg (2,000 unit) capsule cyclobenzaprine 10 mg tablet 10 mg PO TID PRN muscle spasm #20 07/01/22 11/09/22 Rx tabs glucose 4 gram chewable tablet 16 g PO Q15M PRN hypoglycemia #60 07/14/22 11/09/22 Rx (Dex4 Glucose) tabs bupropion HCl 150 mg 24 hr tablet, 150 mg PO QAM 07/23/22 11/09/22 History extended release (Wellbutrin XL) calcium carbonate 600 mg calcium 600 mg PO DAILY 07/23/22 11/09/22 History (1,500 mg) tablet (Calcium) nystatin 100,000 unit/gram topical 1 applic topical .COMPLEX #60 grams 07/23/22 11/09/22 Rx powder insulin aspart U-100 100 unit/mL See Rx Instructions .Route .COMPLEX 09/04/22 11/09/22 History (3 mL) subcutaneous pen (Novolog FlexPen U-100 Insulin aspart) rosuvastatin 40 mg tablet 40 mg PO DAILY 09/04/22 11/09/22 History albuterol sulfate 90 mcg/actuation 2 puff inhalation Q4H PRN 09/09/22 11/09/22 History aerosol inhaler Shortness Of Breath budesonide-formoterol HFA 80 2 puff inhalation Q12H 09/09/22 11/09/22 History mcg-4.5 mcg/actuation aerosol inhaler (Symbicort) gabapentin 300 mg capsule 600 mg PO HS 09/09/22 11/09/22 History lisinopril 5 mg tablet 5 mg PO DAILY #90 tabs 10/19/22 11/09/22 Rx Current Medications: Active Medications Sodium Chloride (Normal Saline Iv) 500 mls @ 100 mls/hr IV CONT .Q5H CARLOS Last Admin: 11/10/22 09:30 Dose: 100 mls/hr Sedation/Anesthesia: No previous sedation/anesthesia problems (including family history). [facility] Past Medical History Medical History Allergies Anxiety Arthritis Asthma Chronic headaches Chronic obstructive pulmonary disease Depression DJD of shoulder Drug abuse in remission Gastroesophageal reflux disease Hepatitis C Treated. High cholesterol History of MRSA infection Hypertension Hypothyroidism Insulin dependent type 2 diabetes mellitus Irritable bowel syndrome Obstructive sleep apnea Osteoarthritis Posttraumatic stress disorder Tobacco abuse Transient ischemic attack Surgical History Surgical History History of colonoscopy History of colonoscopy with polypectomy History of laparoscopic cholecystectomy History of surgery
--- NOTE | 2022-11-10 09:55 | WPDCARDPROC ---
Cardiac Cath Procedure Note Date of procedure:: 11/10/22 Performing physician:: CATHETERIZATION LABORATORY REPORT Procedure Date: 11/10/2022 Site Damage Prevention Technician: Chalo Sanchez M.D., [facility]? Referring Physician: Dr. Matthews ? Anesthesia: Versed and Fentanyl were ordered and given in my presence at 10:12, procedure ended at 10:28. Supervision of nurse monitored moderate sedation with Versed and Fentanyl was provided for 16 minutes. Total of Versed 2mg and Fentanyl 50mcg were administered by the Global Coordinator RN Michelle Wyatt. Pre-op Diagnosis: Coronary artery disease Post-op Diagnosis: 1. Non-obstructive coronary arteries 2. Left ventricular end-diastolic pressure of 9mmHg Procedure(s): Left heart catheterization with coronary angiography Access Site: Right radial artery Brief History and Clinical Indications: Patient is a 47-year-old female who is referred for [facility] for chest pain and abnormal stress test. All risks, benefits and alternatives to left heart catheterization with or without percutaneous coronary intervention was discussed at length with the patient. Risk of complications including but not limited to bleeding, infection, arrhythmia, stroke, worsening kidney function, blood loss, groin hematoma, limb loss, emergency coronary artery bypass grafting, and even were discussed with the patient and all questions were answered. The patient understood and wished to proceed. Time out called, patient name, date of , medical record number, allergies, procedure performed, identify Site Damage Prevention Technician, patient and staff member concurred with accurate data, procedure carried on. Findings: LEFT HEART CATHETERIZATION FINDINGS: 1. Left main: The left main coronary artery is widely patent without any significant obstructive disease. The left main is short. 2. Left anterior descending: The LAD and the diagonal branches have luminal irregularities without any significant obstructive angiographic disease. 3. Left circumflex: The left circumflex artery and the main marginal branches have mild luminal irregularities without any significant obstructive angiographic disease. 4. Right coronary artery: The RCA has mild luminal irregularities without any significant obstructive angiographic disease. The RCA is the dominant vessel. 5. Left ventricle: A. End-diastolic pressure 9mmHg. B. LV gram deferred. C. No significant gradient across aortic valve on catheter pullback. Description of Procedure: Informed consent signed and placed in the chart. Patient transferred to sugar laboratory assistant room. Prepped and draped in usual sterile fashion. 2% lidocaine injected subcutaneously in right wrist area. 22-gauge venipuncture catheter used to access the right radial artery with the Seldinger technique. 6-FR slender sheath placed in right radial artery. Nitroglycerine and Verapamil were given intraarterial through the sheath. Versacore wire advanced under fluoroscopy 5F Tig 4 diagnostic catheter engaged Left Main Coronary Artery. 5F Tig 4 diagnostic catheter engaged Right Coronary Artery Multiple orthogonal angiogram obtained and reviewed 5F Pigtail diagnostic catheter crossed aortic valve to obtain LVEDP, LV angiogram deferred. Hemostasis was achieved by application of TR band. ? Assessment: 1. Non-obstructive coronary arteries 2. Left ventricular end-diastolic pressure of 9mmHg Post Operative Condition: Stable No significant blood loss Disposition: Home Plan: The patient will be monitored in the recovery area. Discharge home after post cath bed rest is completed. The above findings were discussed with the referring physician. Continue aggressive medical therapy and risk factor modification. ? Chalo Sanchez M.D. Interventional Cardiology
[2022-11-10 12:03] LABS: Glucose Point of Care 298 mg/dl (65-105)
[2022-11-10] MEDS: INSULIN ASPART (*BKC) 100 UNITS/ML 20 UNITS SUB-Q (12:19)
--- NOTE | 2022-11-10 14:00 | SUR.PHASEII ---
NOTIFIED DR. SNELL OF PT'S C/O R. THUMB NUMBNESS PERSISTING AFTER ALL AIR OUT OF TR BAND AND SITE DRESSED. PER DR. SNELL, PT. CAN DISCHARGE HOME ALREADY ORDERED AND NUMBNESS SHOULD CONTINUE TO IMPROVE. IF PT. HAS ANY CONCERNS OR QUESTIONS, SHE CAN NOTIFY DR. GARCIA. R. HAND IS PINK, WARM, DRY. NO SWELLING NOTED. NO BLEEDING OR HEMATOMA NOTED TO PUNCTURE SITE. CAPILLARY REFILL IS WNL. ABLE TO WIGGLE ALL FINGERS. REPORTS NUMB SENSATION IS TO R. DISTAL WRIST TO THUMB ONLY. ARM BOARD IS ON. GOOD PLETH WAVE WITH PULSE OX ON R. THUMB. WILL CONTINUE TO MONITOR.
== END 2022-11-10 15:25 | disposition home or self-care (01) ==
PROVIDERS: PCP Internal Medicine; Visit Provider Internal Medicine
PROC: 4A023N7 Measurement of Cardiac Sampling and Pressure, Left Heart, Percutaneous Approach (ICD-10-PCS; CPT 93452; principal; 2022-11-10 10:00)
DX: I25.10 Atherosclerotic heart disease of native coronary artery without angina pectoris (principal); R94.39 Abnormal result of other cardiovascular function study; R07.9 Chest pain, unspecified; I10 Essential (primary) hypertension; E03.9 Hypothyroidism, unspecified; J44.9 Chronic obstructive pulmonary disease, unspecified; E11.9 Type 2 diabetes mellitus without complications; K21.9 Gastro-esophageal reflux disease without esophagitis; Z86.19 Personal history of other infectious and parasitic diseases; Z86.73 Personal history of transient ischemic attack (TIA), and cerebral infarction without residual deficits; F41.9 Anxiety disorder, unspecified; F32.A Depression, unspecified; F43.10 Post-traumatic stress disorder, unspecified; Z79.82 Long term (current) use of aspirin; Z79.4 Long term (current) use of insulin; Z79.51 Long term (current) use of inhaled steroids
CPT/HCPCS: 36415; 80048; 80053; 80061; 82570; 82948; 84100; 84156; 85025; 93458; A9270; C1769; C1887; C1894; J1644; J1815; J2250; J2305; J3010; J7040

== ENCOUNTER 2022-11-10 07:34 | Outpatient (CLI) | payer MEDICARE, MEDICAID, SELFPAY ==
[2022-11-10 09:04] LABS: Alanine Aminotransferase 17 U/L (6-35); Albumin Level 3.9 g/dL (3.5-5.1); Alkaline Phosphatase 62 U/L (38-126); Anion Gap 6 mmol/L (8-16); Aspartate Amino Transferase 20 U/L (14-36); Bilirubin,Total 0.3 mg/dL (0.2-1.3); Blood Urea Nitrogen 19 mg/dL (7-17); Calcium 8.9 mg/dL (8.4-10.2); Carbon Dioxide 22 mmol/L (22-30); Chloride 106 mmol/L (98-107); Cholesterol 262 mg/dL (0-200); Estimated Glomerular Filt Rate > 60; Glucose 270 mg/dL (65-110); HDL Direct 37 mg/dL; Phosphorus 4.1 mg/dL (2.5-4.5); Potassium 3.9 mmol/L (3.4-5.0); Sodium 134 mmol/L (137-145); Triglycerides 474 mg/dL (<150)
[2022-11-10 09:05] LABS: Creatinine Urine 88.3 mg/dL
[2022-11-10 09:15] LABS: LDL Cholesterol Direct 117 mg/dL
[2022-11-10 09:22] LABS: Total Protein Urine Random 319 mg/dL; Ur Ttl Prot Creatinine Ratio 3.61 mg/mg (0-0.20)
== END 2022-11-10 07:35 | disposition home or self-care (01) ==
PROVIDERS: PCP Internal Medicine; Referring Provider Internal Medicine Nephrology; Visit Provider Internal Medicine Cardiovascular Disease
DX: E78.5 Hyperlipidemia, unspecified (principal); R80.1 Persistent proteinuria, unspecified
CPT/HCPCS: 36415; 80053; 80061; 82570; 84100; 84156

== ENCOUNTER → 2022-12-03 11:17 | Outpatient (CLI) | payer MEDICARE, MEDICAID, SELFPAY ==
--- NOTE | ~2022-12-03 | XR_ITS ---
Left Hand Technique: PA and lateral views were obtained. Clinical History: Pain Findings: No acute fracture or dislocation is seen. Probable small chronic fracture of the distal tuf t of the fifth distal phalanx. Joint spaces are preserved. Soft tissues are unremarkable. Impression: Small probable chronic fracture deformity of the distal tuft of the fifth distal phalanx. Reviewed, dictated and finalized at location . Impression: Small probable chronic fracture deformity of the distal tuft of the fifth dista l phalanx.
== END ==
PROVIDERS: PCP Internal Medicine; Visit Provider Nurse Practitioner
DX: M79.645 Pain in left finger(s) (principal); R93.6 Abnormal findings on diagnostic imaging of limbs
CPT/HCPCS: 73120

== ENCOUNTER → 2023-01-06 15:20 | Outpatient (CLI) | payer MEDICARE, MEDICAID, SELFPAY ==
--- NOTE | ~2023-01-06 | XR_ITS ---
IMPRESSION: 1. No acute cardiopulmonary disease. Reviewed, dictated and finalized at location A. EXAMINATION: XR chest 2V DATE: 01/06/2023 15:36 INDICATION: Cough TECHNIQUE: frontal and lateral views of the chest were obtained. COMPARISON: Chest radiograph dated 09/09/2022 FINDINGS: The lungs are clear with no focal airspace opacities, pulmonary edema, pleural effusion or pneumothor ax. The cardiomediastinal silhouette is normal. Mild thoracic spondylosis.
== END ==
PROVIDERS: PCP Internal Medicine; Visit Provider Nurse Practitioner
DX: R05.9 Cough, unspecified (principal)
CPT/HCPCS: 71046

== ENCOUNTER 2023-05-20 10:31 | Outpatient (CLI) | payer MEDICARE, MEDICAID, SELFPAY ==
[2023-05-20 12:50] LABS: Hematocrit 41.2 % (37.0-47.0); Hemoglobin 13.2 g/dL (12.0-15.0); Mean Corpuscular Hemoglobin 30.1 pg (26-34); Mean Corpuscular Volume 93.8 fl (80-100); Mean Platelet Volume 9.9 fl (7.4-10.4); Platelet Count Result 297 k/mm3 (150-375); Red Blood Count 4.39 M/mm3 (4.2-5.4); Red Cell Distribution Width 13.1 % (11.5-14.5); White Blood Count 7.2 K/mm3 (4.5-10.0)
[2023-05-20 13:16] LABS: Alanine Aminotransferase 11 U/L (6-35); Albumin Level 3.9 g/dL (3.5-5.1); Alkaline Phosphatase 65 U/L (38-126); Anion Gap 5 mmol/L (8-16); Aspartate Amino Transferase 28 U/L (14-36); Bilirubin,Total 0.3 mg/dL (0.2-1.3); Blood Urea Nitrogen 18 mg/dL (7-17); Calcium 8.7 mg/dL (8.4-10.2); Carbon Dioxide 26 mmol/L (22-30); Chloride 108 mmol/L (98-107); Cholesterol 184 mg/dL (0-200); Estimated Glomerular Filt Rate > 60; Glucose 159 mg/dL (65-110); HDL Direct 37 mg/dL; Potassium 3.9 mmol/L (3.4-5.0); Sodium 139 mmol/L (137-145); Triglycerides 293 mg/dL (<150)
[2023-05-20 13:19] LABS: Albumin Level 3.8 g/dL (3.5-5.1); Anion Gap 7 mmol/L (8-16); Blood Urea Nitrogen 19 mg/dL (7-17); Calcium 8.8 mg/dL (8.4-10.2); Carbon Dioxide 26 mmol/L (22-30); Chloride 107 mmol/L (98-107); Estimated Glomerular Filt Rate > 60; Glucose 157 mg/dL (65-110); Phosphorus 2.9 mg/dL (2.5-4.5); Potassium 3.9 mmol/L (3.4-5.0); Sodium 140 mmol/L (137-145)
[2023-05-20 13:27] LABS: LDL Cholesterol Direct 92 mg/dL
[2023-05-20 15:40] LABS: Creatinine Urine 56.7 mg/dL; Total Protein Urine Random 69 mg/dL; Ur Ttl Prot Creatinine Ratio 1.22 mg/mg (0-0.20)
[2023-05-20 17:03] LABS: Vitamin D 25 Hydroxy 24.4 ng/mL
== END 2023-05-20 10:32 | disposition home or self-care (01) ==
PROVIDERS: Internal Medicine Cardiovascular Disease; Internal Medicine Endocrinology, Diabetes & Metabolism; PCP Internal Medicine; Visit Provider Internal Medicine Nephrology
DX: K58.9 Irritable bowel syndrome, unspecified (principal); R80.1 Persistent proteinuria, unspecified; E78.5 Hyperlipidemia, unspecified; E11.65 Type 2 diabetes mellitus with hyperglycemia; E55.9 Vitamin D deficiency, unspecified
CPT/HCPCS: 36415; 80053; 80061; 80069; 82306; 82570; 82607; 84156; 85027

== ENCOUNTER 2023-07-06 10:29 | Outpatient (CLI) | payer MEDICARE, MEDICAID, SELFPAY ==
[2023-07-06 11:06] LABS: Hematocrit 43.9 % (37.0-47.0); Mean Corpuscular HGB Conc 31.9 g/dl (32-36); Mean Corpuscular Hemoglobin 29.5 pg (26-34); Mean Corpuscular Volume 92.6 fl (80-100); Mean Platelet Volume 9.6 fl (7.4-10.4); Platelet Count Result 339 k/mm3 (150-375); Red Blood Count 4.74 M/mm3 (4.2-5.4); Red Cell Distribution Width 13.1 % (11.5-14.5); White Blood Count 8.6 K/mm3 (4.5-10.0)
[2023-07-06 12:03] LABS: Free T4 Free Thyroxine 0.93 ng/mL (0.78-2.19)
== END 2023-07-06 10:30 | disposition home or self-care (01) ==
PROVIDERS: PCP Internal Medicine; Visit Provider Nurse Practitioner Family
DX: E03.9 Hypothyroidism, unspecified (principal); E11.69 Type 2 diabetes mellitus with other specified complication; E55.9 Vitamin D deficiency, unspecified; E78.5 Hyperlipidemia, unspecified
CPT/HCPCS: 36415; 84439; 84443; 85027

== ENCOUNTER 2023-07-26 14:30 | Outpatient (CLI) | payer MEDICARE, MEDICAID, SELFPAY ==
--- NOTE | ~2023-07-26 | US_ITS ---
EXAMINATION: US arterial ankle brachial ind DATE: 07/26/2023 15:21 INDICATION: Peripheral vascular disease with claudication TECHNIQUE: Segmental pressures and plethysmographic and Doppler waveforms of the brachial and lower e xtremity arteries were obtained. COMPARISON: None. FINDINGS: Right and left brachial artery pressures of 115 mm Hg and 115 mm Hg, respectively, are concordant (no rmal difference <= 30 mmHg). The right ankle-brachial index (DWAYNE) is 1.49 (normal >= 0.9-1.0). The right great toe-brachial index (TBI) is 0.90 (normal >= 0.65). Arterial Doppler waveforms are triphasic at the right posterior tibia l artery and biphasic at the right dorsalis pedis artery, both with brisk systolic upstrokes. The left DWAYNE is 1.43. The left TBI is 0.78. Arterial Doppler waveforms are triphasic in the left post erior tibial and biphasic in the left dorsalis pedis artery, both with brisk systolic upstrokes. IMPRESSION: 1. No significant arterial occlusive disease with normal bilateral ABIs and TBIs. Reviewed, dictated and finalized at location A. IMPRESSION: 1. No significant arterial occlusive disease with normal bilateral ABIs and TBI s.
== END 2023-07-26 14:31 | disposition home or self-care (01) ==
LOC: ANHIMG 14:33
PROVIDERS: PCP Internal Medicine; Visit Provider Nurse Practitioner Family
DX: Z09 Encounter for follow-up examination after completed treatment for conditions other than malignant neoplasm (principal); I73.9 Peripheral vascular disease, unspecified
CPT/HCPCS: 93922

== ENCOUNTER 2023-10-13 09:09 | Outpatient (CLI) | payer MEDICARE, SELFPAY ==
[2023-10-13 19:48] LABS: Creatinine Urine 86.1 mg/dL; Total Protein Urine Random 28 mg/dL; Ur Ttl Prot Creatinine Ratio 0.33 mg/mg (0-0.20)
[2023-10-13 19:51] LABS: Alanine Aminotransferase 12 U/L (6-35); Albumin Level 4.3 g/dL (3.5-5.1); Alkaline Phosphatase 51 U/L (38-126); Anion Gap 10 mmol/L (4-12); Aspartate Amino Transferase 39 U/L (14-36); Bilirubin,Total 0.3 mg/dL (0.2-1.3); Blood Urea Nitrogen 19 mg/dL (7-17); Calcium 9.1 mg/dL (8.4-10.2); Carbon Dioxide 22 mmol/L (22-30); Chloride 107 mmol/L (98-107); Cholesterol 210 mg/dL (0-200); Estimated Glomerular Filt Rate 59; Glucose 156 mg/dL (65-110); HDL Direct 39 mg/dL; Potassium 3.9 mmol/L (3.4-5.0); Sodium 139 mmol/L (137-145); Triglycerides 339 mg/dL (<150)
[2023-10-13 19:59] LABS: Hepatitis B Surface Antigen Negative (Negative)
[2023-10-13 20:03] LABS: LDL Cholesterol Direct 114 mg/dL
[2023-10-13 20:11] LABS: Hepatitis C Virus Antibody Reactive (Negative)
[2023-10-13 20:17] LABS: HIV 1/2 Ab P24 Ag Result Negative (Negative)
[2023-10-13 20:24] LABS: Hemoglobin A1C 6.7 % (<5.7)
[2023-10-14 13:15] LABS: Rapid Plasma Reagin Non-Reactive (NonReactive)
[2023-10-16 15:17] LABS: Hepatitis C RNA, Quant PCR <15 NOT DETECTED IU/mL (NOT DETECTED)
== END 2023-10-13 09:10 | disposition home or self-care (01) ==
PROVIDERS: Internal Medicine Cardiovascular Disease; Internal Medicine Nephrology; Nurse Practitioner Family; PCP Internal Medicine; Visit Provider Nurse Practitioner Family
DX: E78.5 Hyperlipidemia, unspecified (principal); Z11.3 Encounter for screening for infections with a predominantly sexual mode of transmission; R80.1 Persistent proteinuria, unspecified; E11.65 Type 2 diabetes mellitus with hyperglycemia
CPT/HCPCS: 36415; 80053; 80061; 82570; 83036; 84156; 86592; 86703; 86803; 87340; 87522; G0432

== ENCOUNTER 2023-10-14 13:34 | Outpatient (CLI) | payer MEDICARE, SELFPAY ==
[2023-10-16 14:43] LABS: Hepatitis C RNA, Quant PCR <15 NOT DETECTED IU/mL (NOT DETECTED)
== END 2023-10-14 13:35 | disposition home or self-care (01) ==
LOC: ANHWCLAB 13:38
PROVIDERS: PCP Internal Medicine; Visit Provider Nurse Practitioner Family
DX: R76.8 Other specified abnormal immunological findings in serum (principal); Z78.9 Other specified health status
CPT/HCPCS: 36415; 87522

== ENCOUNTER 2023-10-14 16:34 | Outpatient (CLI) | payer MEDICARE, SELFPAY ==
--- NOTE | ~2023-10-14 | CT_ITS ---
CT Scan of the Chest without Contrast: Clinical Indication: Solitary pulmonary nodule Technique: Contiguous sections were acquired throughout the chest without intravenous contrast. Dose reduction technique was used on this scan by utilizing automated exposure control and iterative recon struction technique. The dose-length product (DLP) was 327.61 mGy-cm. Findings: There is no evidence of any significant mediastinal, hilar or axillary lymphadenopathy. The mediastin al soft tissues appear normal. Minimal pericardial fluid present. No pleural effusions. The lungs are clear. No pulmonary nodules or infiltrates are noted. Images through the upper abdomen reveal no abnormalities. Impression: No significant abnormalities seen. Reviewed, dictated and finalized at location . Impression: No significant abnormalities seen.
== END 2023-10-14 16:35 | disposition home or self-care (01) ==
LOC: ANHIMG 16:38
PROVIDERS: PCP Internal Medicine; Visit Provider Physician Assistant
DX: R91.1 Solitary pulmonary nodule (principal); J44.9 Chronic obstructive pulmonary disease, unspecified; Z87.891 Personal history of nicotine dependence
CPT/HCPCS: 36415; 71250; 87522

== ENCOUNTER 2023-10-15 12:54 | Outpatient (CLI) | payer MEDICARE, SELFPAY ==
--- NOTE | 2023-10-15 14:47 | WPDSIXMINUTE ---
Six Minute Walk Procedure Procedure Performed Pulmonary Stress Test (6 min walk) Six Minute Walk Six Minute Walk: This is a 6 minute walk test. The test was performed and interpreted in accordance with the 2014 ERS/ATS task force guidelines. Of note, patient uses a wheeled walker for stability. Findings: The patient's resting room air oxygen saturation measured by pulse oximetry was 95% and heart rate was 102 bpm. Patient ambulated for 259 meters and oxygen saturation remained 95 to 97%. Heart rate at the end of the study was 133 bpm. The patient did not qualify for supplemental oxygen at rest or with ambulation. There are no prior studies for comparison.
--- NOTE | 2023-10-15 14:48 | WPDPFTINT ---
PFT Procedure Performed PFT Procedure Performed Spirometry with Pre/Post Bronchodilator Plethysmography (Lung Vol) Diffusing Cap (DLCO) Flow Vol Loop PFT Interpretation This is a pulmonary function test with pre and post-bronchodilator spirometry, plethysmography and diffusing capacity. The test was performed and results interpreted in accordance with the 2019 and 2005 ATS/ERS Task Force guidelines respectively using the Global Lung Function Initiative-2012 reference equations. Patient demonstrated good effort and cooperation. Reproducibility criteria were met. The quality of the pre bronchodilator spirometry maneuver was Grade A and post bronchodilator spirometry maneuver was Grade A. Findings: Spirometry: The contour the inspiratory and expiratory flow tracing are normal. The pre bronchodilator FVC is 4.03 L, 113% predicted. The pre bronchodilator FEV1 is 2.31 L, 112% predicted. The pre bronchodilator FEV1: FVC ratio is 80%. The post bronchodilator FVC is 3.91 L, representing a 3% decrease. The post bronchodilator FEV1 is 3.15 L, representing a 2% decrease. The post bronchodilator FEV1: FVC ratio is 81%. Plethysmography: The total lung capacity is 6.17 L, 119% predicted. The functional residual capacity is 1.52 L, 52% predicted. The residual volume is 1.50, 81% predicted. Diffusing capacity: The diffusing capacity unadjusted for hemoglobin and carboxyhemoglobin is 19.9, 86% predicted. The diffusing capacity adjusted for alveolar volume is 3.70, 81% predicted. Impression: The spirometry is normal without evidence of an obstructive abnormality. There is no significant improvement after inhaling a single dose of albuterol. The total lung capacity and residual volume are normal with a decreased functional residual capacity. This is an abnormal but nonspecific lung volume pattern. The diffusing capacity is normal. There are no prior studies for comparison
== END 2023-10-15 12:55 | disposition home or self-care (01) ==
LOC: ANHPFT 12:57
PROVIDERS: PCP Internal Medicine; Visit Provider Physician Assistant
DX: J44.9 Chronic obstructive pulmonary disease, unspecified (principal); R91.1 Solitary pulmonary nodule; Z87.891 Personal history of nicotine dependence
CPT/HCPCS: 94060; 94618; 94726; 94729

== ENCOUNTER 2023-12-24 09:10 | Outpatient (CLI) | payer MEDICARE, SELFPAY ==
--- NOTE | 2023-12-24 09:26 | ECHO_ITS ---
Patient Info Name: Perla Palomo Age: 48 years : 1975 Gender: Female Ht: 65 in Wt: 252 lbs BSA: 2.35 m2 HR: 85 bpm BP: 129 / 79 mmHg Heart Rhythm: Sinus Rhythm Technical Quality: Good Exam Date: 12/24/2023 10:02 AM Exam Location: Echo Lab Patient Status: Outpatient Admit Date: 12/24/2023 Staff Ordering Physician: Shashank Matthews DO Project Economist: Yvette Peters RDCS Attending Provider: Shashank Matthews DO Referring Physician: Byron BOTELLO; Exam Type: CA echo doppler color flow Study Info Indications - SOB Complete two-dimensional, color flow and Doppler transthoracic echocardiogram is performed. Summary 1. Complete two-dimensional, color flow and Doppler transthoracic echocardiogram is performed. 2. Left ventricular chamber dimension is normal. 3. Left ventricular systolic function is normal, estimated at 60-65%. 4. The left ventricular diastolic function is grade I diastolic dysfunction. 5. E/e' 4 is not elevated. 6. There is mild aortic valve sclerosis. 7. No pulmonary hypertension, estimated pulmonary arterial systolic pressure is 11 mmHg. Left Ventricle E/e' 4 is not elevated. Left ventricular chamber dimension is normal. Left ventricular systolic function is normal, estimated at 60-65%. The left ventricular diastolic function is grade I diastolic dysfunction. Right Ventricle Right ventricular systolic function is normal and with normal TAPSE 2.6 cm. Right ventricular chamber dimension is normal. Left Atria Left atrial chamber dimension is normal. Right Atria Right atrial chamber dimension is normal. Aortic Valve The aortic valve is trileaflet. There is mild aortic valve sclerosis. There is no aortic valve stenosis. There is no aortic valve regurgitation. Pulmonic Valve There is no pulmonic regurgitation. Mitral Valve There is no mitral valve stenosis. There is no mitral valve regurgitation. Tricuspid Valve There is no tricuspid valve regurgitation. No pulmonary hypertension, estimated pulmonary arterial systolic pressure is 11 mmHg. Pericardium/Pleural There is no pericardial effusion. Inferior Vena Cava Normal inferior vena cava with >50% collapse upon inspiration consistent with normal right atrial pressure, 5 mmHg. Aorta The aortic root size at the sinus of Valsalva is normal. Left Ventricular Outflow Tract Name Value Normal LVOT 2D LVOT Diameter 2.0 cm LVOT Doppler LVOT Peak Gradient 4 mmHg LVOT Mean Gradient 2 mmHg LVOT VTI 19 cm LVOT VTI/AV VTI Ratio 0.9 LVOT Stroke Volume 60 ml LVOT CO 5.1 l/min LVOT CI 2.2 l/min/m2 Pulmonic Valve Name Value Normal PV Doppler PV Peak Gradient 4 mmHg Mitral Valve
== END 2023-12-24 09:11 | disposition home or self-care (01) ==
LOC: ANHCARD 09:11
PROVIDERS: PCP Internal Medicine; Visit Provider Internal Medicine Cardiovascular Disease
DX: R06.02 Shortness of breath (principal)
CPT/HCPCS: 93306

== ENCOUNTER 2024-03-16 14:27 | Outpatient (CLI) | payer MEDICARE, MEDICAID, SELFPAY ==
[2024-03-16 19:33] LABS: Add Urine Microscopic? YES; Appearance Urine Clear (Clear); Bacteria Urine None Seen /hpf; Bilirubin Urine Negative (Negative); Blood Urine Negative (Negative); Color Urine Yellow (Yellow); Glucose Urine UA 3+ mg/dL (Negative); Ketones Urine Negative (Negative); Leukocyte Esterase Ur Negative LEU/UL (Negative); Nitrate Urine Negative (Negative); Non Pathogenic Casts 0-2; Protein Urine Trace mg/dL (Negative); RBC Urine 0-2 /hpf (0-2); Specific Grav Ur 1.023 (1.001-1.035); Squamous Epithelial Cell Urine None Seen /hpf (Few); Urobilinogen Urine 0.2 mg/dL (<2.0); WBC Urine 0-5 /hpf (0-3)
== END 2024-03-16 14:28 | disposition home or self-care (01) ==
LOC: ANHGOSHLAB 14:29
PROVIDERS: PCP Internal Medicine; Visit Provider Nurse Practitioner
DX: R30.0 Dysuria (principal)
CPT/HCPCS: 81001

== ENCOUNTER 2024-07-11 12:32 | Outpatient (CLI) | payer MEDICARE, SELFPAY ==
[2024-07-11 13:34] LABS: Hematocrit 43.9 % (37.0-47.0); Hemoglobin 14.1 g/dL (12.0-15.0); Mean Corpuscular HGB Conc 32.1 g/dl (32-36); Mean Corpuscular Hemoglobin 29.1 pg (26-34); Mean Corpuscular Volume 90.5 fl (80-100); Mean Platelet Volume 9.8 fl (7.4-10.4); Platelet Count Result 280 k/mm3 (150-375); Red Blood Count 4.85 M/mm3 (4.2-5.4); Red Cell Distribution Width 13.4 % (11.5-14.5); White Blood Count 6.4 K/mm3 (4.5-10.0)
--- OUTSIDE RECORDS SUMMARY | 2024-07-11 13:49 | XMS_ITS ---
Author Organization [facility] Address [address] [place] [address] Care Team Providers Care Bait Packer Name Role Phone Darren Arevalo Primary Care Provider [phone] REASON FOR VISIT 1 Month Psych F/U & Med Refill Social History Sex Assigned At : Social History Observation Description Sex Assigned At Female Encounters Encounter Location Date Provider Diagnosis [address] [address] 07/11/2024 Darren Arevalo Plan Of Treatment Next Appt Details Provider Name:Darren carr, 07/11/2024 03:00:00 PM, [address] [place] [address], [place], [address], Progress Notes * Perla LAWRENCE DDOB: [birth year] (48 yo F)Acc No.[id number]:07/11/2024 UNLOCKED PROGRESS NOTE Patient: Ibrahima Perla HODGES Provider: Devonte Arevalo DNP, PMHNP-BC :1975 A ge:48 Y S ex:Female Date:07/11/2024 Address[facility] [address] [id number] Subjective: * Chief Complaints: * 1 . 1 Month Psych F/U & Med Refill. * Medical History: Objective: * Vitals: Assessment: Plan: * Treatment: * * Electronic signature of Courtney Arevalo , BUSGIRL, [id number] on 07/11/2024 at 01:49 PM CDT Sign off status: Pending * Provider: Devonte Arevalo DNP, PMHNP- Date: 0 07/11/2024 Generated for Yandy perera/Boubacar/Mario on: 0 07/11/2024 01:49 PM CDT
--- OUTSIDE RECORDS SUMMARY | 2024-07-11 13:50 | XMS_ITS | Continuity of Care Document ---
Author Organization [facility] Address [address] [place] [address] Phone Care Team Providers Care Cost Accounting Clerk Name Role Phone Sawyer Guaman MD Unavailable [...] Diagnoses Date Provider Providers Copied on Encounter [facility], [address] [place] [address], [id number] tel:[phone] [facility] [employer] [employer] No Information 1 Rowena Jacques. [address] [place] [address], [id number] , [place]. tel:[phone] Offic/outpt E&m Estab Mod-hi 2 [facility] [employer] [facility], [address] [place] [address], [id number] tel:[phone] [facility] [employer] Diabetes mellitusAsthm aArthritis, unspecified siteApnea, sleep NOSIrritable bowel syndromeHeart burn 1 Michael Wong. [address] [place] [address], [id number] , [place]. tel:[phone] Referring Provider: Minerva Loza, [address] [place] [address], [id number]. tel:[phone] [facility] [employer] [facility], [address] [place] [address], [id number] tel:[phone] [facility] [employer] Diabetes mellitusAsthm a 6 Michael Wong. [address] [place] [address], [id number] , [place]. tel:[phone] Referring Provider: Minerva Loza, [address] [place] [address], [id number]. tel:[phone] Offic/outpt E m Estab Low [facility], [address] [place] [address], [id number] tel:[phone] [facility] Diabetes mellitusAsthm aDiabetes mellitusAsthm aConstipation Nausea 3 Michael Wong. [address] [place] [address], [id number] , . tel:[phone] Referring Provider: Minerva Lux MD S, [address] [place] [address], [id number]. tel:[phone] Offic/outpt E m Estab Min [facility] [employer] [facility], [address] [place] [address], [id number] tel:[phone] [facility] Chronic Fatty Liver,/non alcoholicChro micheal Fatty Liver,/non alcoholic Oct- 3 Michael Wong. [address] [place] [address], [id number] , [place]. tel:[phone] Referring Provider: Minerva Loza, [address] [place] [address], [id number]. tel:[phone] Offic Cons New/estab Mod-4) [facility] [employer] [facility], [address] [place] [address], [id number] tel:[phone] [facility] Abnormal liver testsAbnormal liver tests 3 Michael Wong. [address] [place] [address], [id number] , [place]. tel:[phone] Referring Provider: Minerva Loza, [address] [place] [address], [id number]. tel:[phone] Family History Family Member Type Diagnosis Age At Onset No Information Payers Payer name Insurance type Covered democrat ID Authoriza tion(s) [facility] PPO [id number] Medicare MB [id number] Social History Type Description Quantity Date Captured [...]
--- OUTSIDE RECORDS SUMMARY | 2024-07-11 13:50 | XMS_ITS | Referral Summary ---
Author Organization [facility] Address [address] [place] [address] Care Team Providers Care Psych Social Worker Name Role Phone Unknown, Provider Primary Care Provider Unavaila ble Source Comments [facility],non-owned Affiliates and Associated Physician Practices is amultiple site organization consisting of ambulatory clinics and hospital sitesin [place], [place], [place] and [place]. This disclosure is being madepursuant to the Care Everywhere program and may not contain all information available regarding this patient. Last updated 18.[facility] [employer] Allergies Active Allergy Reactions Criticality Noted Date Comments Erythromycin Rash Medium 08/09/2020 Asenapine Shortness of Breath High 08/09/2020 Sulfa Drugs Rash Medium 08/09/2020 Medications * Be aware that medications may not be up to date on this document. Alwaysverify current medications with the patient. Medication Sig Dispensed Refills Start Date End Date Status PRAZOSIN HCL PO Active aspirin EC (ASPIR-LOW) 81 MG tablet Take 81 mg by mouth once daily Active Omeprazole 20 MG TBDD Act viet SIMVASTATIN PO Active buPROPion (WELLBUTRIN) 100 MG tablet Take 100 mg by mouth 2 times daily Active SERTRALINE HCL PO Active OXcarbazepine (TRILEPTAL) 600 MG tablet Take 600 mg by mouth 2 times daily Active ALBUTEROL INIndications:Acute bronchitis, unspecified organism Active insulin lispro (HUMALOG) 100 UNIT/ML cartridge Active Active Problems No known active problems Social History Tobacco Use Types Packs/Day Years Used Date Smoking Tobacco: Never Assessed Sex and Gender Information Value Date Recorded Sex Assigned at Not on file Gender Identity Not on file Sexual Orientation Not on file Last Filed Vital Signs Vital Sign Reading Time Taken Comments Blood Pressure 126/78 08/09/2020 5:37 PM CDT Pulse 100 08/09/2020 5:37 PM CDT Temperature 36.8 C (98.2 F) 08/09/2020 5:37 PM CDT Respiratory Rate 17 08/09/2020 5:37 PM CDT Oxygen Saturation 97% 08/09/2020 5:37 PM CDT Inhaled Oxygen Concentration - - Weight 113.4 kg (250 lb) 08/09/2020 5:37 PM CDT Height 165.1 cm (5' 5 ) 08/09/2020 5:37 PM CDT Body Mass Index 41.6 08/09/2020 5:37 PM CDT Plan of Treatment Not on file Procedures Procedure Name Priority Date/Time Associated Diagnosis Comments MAMMO BILAT DIAGNOSTIC Routine 11/05/2017 10:19 AM CDT Abnormal breast exam from Last 3 Months or Most Recently Relevant to Health Maintenance Results * MAMMO BILAT DIAGNOSTIC (11/05/2017 10:19 AM CDT) Anatomical Region Laterality Modality Bilateral Mammography 11/05/2017 10:2 8 AM CDT Addenda Addendum by Jeevan Nuñez MD on 11/11/2017 8:49 PM CDT Outside study of 06/24/2012 is now available for comparison. The subcutaneous superior right breast density seen on the recent study is an apparent interval change in comparison to previous study. Sonogram is recommended for further evaluation. IMPRESSION: 1. BIRADS Category 0: Incomplete evaluation. 2. Recommend right breast sonogram. Impressions 11/05/2017 10:34 AM CDT 1. BIRAD 0: Incomplete: Needs Additional Imaging Evaluation. 2. Previous studies requested for comparison. Please note: The [place] [employer] has determined that screening mammograms are an important part of ongoing health care and has established screening guidelines. It is the patient's responsibility to supply information about the date and place of previous mammograms. Approximately 10% to 15% of breast cancers are not detected on mammograms. Therefore a negative mammogram should not preclude further workup of clinically suspicious findings. Narrative 11/05/2017 10:34 AM CDT MAMMO BILAT DIAGNOSTIC*[id number] WITH 3D TOMOSYNTHESIS AND CAD HISTORY: No personal history of breast cancer. Reported palpable abnormalities in both breasts. COMPARISON: No comparison available at this time. BREAST DENSITY: There are scattered areas of fibroglandular density. FINDINGS: Digital 3-dimensional tomosynthesis and synthesized 2-D images are obtained. Computer Aided Detection (CAD) was used in the interpretation of this study. There is a 12 mm lobulated density in the right breast, 3 cm superior to the nipple, visible only on the lateral oblique view. This would require additional imaging evaluation unless previously present and unchanged. No other significant abnormalities are seen. Previous studies are requested. Sonogram may be needed for further evaluation of palpable abnormalities, depending on clinical impression. Courtney García Chepe BIOLOGY SPECIMEN TECHNICIAN-SEISMOLOGY TECHNICAL OFFICER MAMMO ORDERABLES from Last 3 Months or Most Recently Relevant to Health Maintenance Care Teams Psych Social Worker Relationship Specialty Start Date End Date Unknown, Provider PCP - General 08/09/20
--- OUTSIDE RECORDS SUMMARY | 2024-07-11 13:50 | XMS_ITS ---
Author Organization [facility] Address [address] [place] [address] Care Team Providers Care Continuity Coordinator Name Role Phone Darren Arevalo Primary Care Provider [phone] REASON FOR VISIT med refill Medications Medication SIG (Take, Route, Frequency, Duration) Notes Start Date End Date Status Prazosin HCl 1 MG TAKE 3 CAPSULES BY M OUTH DAILY AT BEDTIME for 14 days Active Sertraline HCl 100 MG 2 tablets every mo rning Orally Once a day for 14 days Active Lurasidone HCl 60 MG 1 tablet in the ember wade with food Orally Once a day for 14 days Active buPROPion HCl ER (XL) 300 MG 1 tablet in the morning Orally Once a day for 14 days Active Social History Sex Assigned At : Social History Observation Description Sex Assigned At Female Encounters Encounter Location Date Provider Diagnosis [address] [place] [address] 06/02/2024 Darren Arevalo Bipolar II disorder F31.81 ; Anxiety, generalized F41.1 and Post traumatic stress disorder (PTSD) F43.10 Assessments Encounter Date Diagnosis (ICD Code) Assessment Notes Treatment Notes Treatment Clinical Notes Section Notes 06/02/2024 Bipolar II disorder (ICD-10 - F31.81) 06/02/2024 Anxiety, generalized (ICD-10 - F41.1) 06/02/2024 Post traumatic stress disorder (PTSD) (ICD-10 - F43.10) Plan Of Treatment Medication Medication Name Sig Start Date Stop Date Notes Prazosin HCl 1 MG TAKE 3 CAPSULES BY M OUTH DAILY AT BEDTIME for 14 days Sertraline HCl 100 MG 2 tablets every mo rning Orally Once a day for 14 days Lurasidone HCl 60 MG 1 tablet in the ember wade with food Orally Once a day for 14 days buPROPion HCl ER (XL) 300 MG 1 tablet in the morning Orally Once a day for 14 days Next Appt Details Provider Name:Darren Rm Roquedheeraj , 07/11/2024 03:00:00 PM, [address] [place] [address] , [place], [address], Progress Notes * Perla LAWRENCE DDOB: [birth year] (48 yo F)Acc No.[id number]:06/02/2024 Patient: Ibrahima SHEIKHPerla Jerez :1975 A ge:48 Y S ex:Female Address:[address] [place] [address] , [facility] [address] * Refills Refill Lurasidone HCl Tablet, 60 MG, Orally, 14 Tablet, 1 tablet in the evening with food, Once a day, 14 days, Refills=0 Refill buPROPion HCl ER (XL) Tablet Extended Release 24 Hour, 300 MG, Orally, 14 Tablet, 1 tablet in the morning, Once a day, 14 days, Refills=0 Refill Sertraline HCl Tablet, 100 MG, Orally, 28 Tablet, 2 tablets every morning, Once a day, 14 days, Refills=0 Refill Prazosin HCl Capsule, 1 MG, 42, TAKE 3 CAPSULES BY MOUTH DAILY AT BEDTIME, 14 days, Refills=0 * true * Date: Generated for Yandy perera/Boubacar/Flashitting on: 0 07/11/2024 01:49 PM CDT
--- OUTSIDE RECORDS SUMMARY | 2024-07-11 13:50 | XMS_ITS | Patient Health Summary ---
Author Organization [facility] Address [address] [place] [address] Care Team Providers Care Bottom Liner Name Role Phone Unknown, Provider Primary Care Provider Unavaila ble Note from [facility],non-owned Affiliates and Associated Physician Practices is amultiple site organization consisting of ambulatory clinics and hospital sitesin [place], [place], [place] and [place]. This disclosure is being madepursuant to the Care Everywhere program and may not contain all information available regarding this patient. Last updated 18.[facility] Conergy Allergies * Erythromycin(Rash) -Medium Criticality * Asenapine(Shortness of Breath) -High Criticality * Sulfa Drugs(Rash) -Medium Criticality Medications * Be aware that medications may not be up to date on this document. Alwaysverify current medications with the patient. * PRAZOSIN HCL PO * aspirin EC (ASPIR-LOW) 81 MG tablet Take 81 mg by mouth once daily * Omeprazole 20 MG TBDD * SIMVASTATIN PO * buPROPion (WELLBUTRIN) 100 MG tablet Take 100 mg by mouth 2 times daily * SERTRALINE HCL PO * OXcarbazepine (TRILEPTAL) 600 MG tablet Take 600 mg by mouth 2 times daily * ALBUTEROL IN * insulin lispro (HUMALOG) 100 UNIT/ML cartridge Active Problems No known active problems Social [...] Mass Index 41.6 08/09/2020 5:37 PM CDT Procedures * SARS-COV-2 (COVID-19)+INFLU A+B AG (AMB) POC(Performed 08/09/2020) Performed for Acute bronchitis, unspecified organism * MAMMO BILAT DIAGNOSTIC(Performed 11/05/2017) Performed for Abnormal breast exam Results * SARS-COV-2 (COVID-19)+INFLU A+B AG (AMB) POC (08/09/2020 5:49 PM CDT) Pathologist [facility] Influenza A Antigen Rapid Negative Negative [facility] Influenza B Antigen Rapid Negative Negative [facility] SARS-CoV-2 Ag Negative Negative [facility] COVID Internal Control Acceptable Acceptable [facility] Lot # [id number] [facility] Expiration Date 03/04/22 [facility] Instrument Serial Number [id number] [facility] Microbiology SPECIMEN FROM NASAL FOSSAE / Unknown 08/09/2020 5:49 PM CDT Cuco Max APRN-TRANSMITTER ENGINEER IN CHARGE LAB - POINT OF CARE ORDERABLES [facility] [address] [phone] * MAMMO BILAT DIAGNOSTIC (11/05/2017 10:19 AM [...] studies requested for comparison. Please note: The [place] [employer] has determined that screening mammograms [...] Narrative 11/05/2017 10:34 AM CDT MAMMO BILAT DIAGNOSTIC*[id number] WITH 3D TOMOSYNTHESIS AND CAD HISTORY: No [...] palpable abnormalities, depending on clinical impression. Courtney Mo ROUTE DRIVER-TRANSMITTER ENGINEER IN CHARGE MAMMO ORDERABLES Care Teams Bottom Liner Relationship Specialty Start Date End Date Unknown, Provider PCP - General 08/09/20
--- OUTSIDE RECORDS SUMMARY | 2024-07-11 13:50 | XMS_ITS | Clinical Summary ---
Author Organization [facility] Address [address] [place] [address] Care Team Providers Care International Trade Manager Name Role Phone Unknown, Provider Primary Care Provider Unavaila ble Source Comments [facility],non-owned Affiliates and Associated Physician Practices is amultiple site organization consisting of ambulatory clinics and hospital sitesin [place], [place], [place] and [place]. This disclosure is being madepursuant to the Care Everywhere program and may not contain all information available regarding this patient. Last updated 18.[facility] [employer] Allergies Active Allergy Reactions Criticality Noted Date [...] 08/09/2020 5:37 PM CDT Plan of Treatment Health Maintenance Due Date Last Done Comments COLOGUARD (AGES 45-75) - COL ON CA SCREENING 1975 COLON MONITORING 1973 COLONOSCOPY - COLON CA SCREENING 1973 CT COLONOGRAPHY - COLON CA SCREENING 1975 Colorectal Cancer Screening 1975 FIT - COLON CA SCREENING 1973 FLEX SIG - COLON CA SCREENING 1973 MEDICARE AWV 12 MONTHS 1973 PAP SMEAR 1973 HIV SCREENING 1988 HEPATITIS C SCREENING 09/30/1991 DTAP/TDAP/TD VACCINES (1 - Tdap) 1992 HEPATITIS B VACCINE (1 of 3 - 19+ 3-dose series) 1992 MAMMOGRAM 11/06/2019 11/05/2017 SCREENING FOR DIABETES 08/09/2020 PNEUMOCOCCAL VACCINE 50+ (1 of 1 - PCV) 10/05/2023 ZOSTER VACCINE (1 of 2) 10/05/2023 COVID-19 VACCINE (1 - 2023-2 5 season) 2024 INFLUENZA VACCINE (#1) 2024 02/14/2022 DEPRESSION SCREENING 05/03/2024 HIB VACCINE Aged Out No longer eligi ble based on patient's age to complete this topic HPV VACCINE Aged Out No longer eligi ble based on patient's age to complete this topic MENINGOCOCCAL (Group B) VACCINE Aged Out No longer eligible based on patient's age to complete this topic MENINGOCOCCAL VACCINE Aged Out No bel maria antonia eligible based on patient's age to complete this topic PNEUMOCOCCAL VACCINE Aged Out No long er eligible based on patient's age to complete this topic Procedures Procedure Name Priority Date/Time Associated Diagnosis Comments MAMMO BILAT DIAGNOSTIC Routine 11/05/2017 10:19 AM CDT Abnormal breast exam from Last 3 Months or Most Recently Relevant to Health Maintenance Results * MAMMO BILAT DIAGNOSTIC (11/05/2017 10:19 AM CDT) Anatomical Region Laterality Modality Bilateral Mammography 11/05/2017 10:2 8 AM CDT Addenda Addendum by Jeevan uNñez MD on 11/11/2017 8:49 PM CDT Outside [...] studies requested for comparison. Please note: The [place] [employer] has determined that screening mammograms [...] Narrative 11/05/2017 10:34 AM CDT MAMMO BILAT DIAGNOSTIC*[id number] WITH 3D TOMOSYNTHESIS AND CAD HISTORY: No [...] abnormalities, depending on clinical impression. Courtney Mo SKI BASE TRIMMER-INSTRUCTOR APPAREL MANUFACTURE MAMMO ORDERABLES from Last 3 Months or Most Recently Relevant to Health Maintenance Care Teams International Trade Manager Relationship Specialty Start Date End Date Unknown, Provider PCP - General 08/09/20
--- OUTSIDE RECORDS SUMMARY | 2024-07-11 13:50 | XMS_ITS | Clinical Summary ---
Author Organization [facility] Address [address] [place] [phone] Phone Care Team Providers Care Biomedical Service Engineer Name Role Phone ZinaTracy DIEUDONNE Primary Care Provider [phone] Allergies Active Allergy Reactions Criticality Noted Date Comments Asenapine Shortness of breath High 08/09/2020 Capsaicin Unknown 10/31/2021 Erythromycin Rash Medium 08/09/2020 Erythromycin Base Unknown 10/31/2021 Sulfa Antibiotics Rash Medium 08/09/2020 Medications Medication Sig Dispensed Refills Start Date End Date Status albuterol HFA (Ventolin HFA) 108 (90 Base) MCG/ACT inhaler Ventolin HFA 90 mcg/actuation aerosol inhaler INHALE 2 PUFFS Q 4 H PRF SOB OR WHEEZING 07/24/2021 Active aspirin (ST RADHA) 81 MG EC tablet Take 81 mg by mouth in the morning. Active budesonide-formoterol (Symbicort) 80-4.5 MCG/ACT inhaler 2 times daily 07/24/2021 Active buPROPion XL (WELLBUTRIN XL) 150 MG 24 hr tablet Take 150 mg by mouth 1 (one) time each day in the morning 03/28/2022 Active gabapentin (NEURONTIN) 300 MG capsule TAKE 1 CAPSULE BY MOUTH EVERY MORNING AND 2 CAPSULES EVERY EVENING 03/28/2022 Active OneTouch Verio test strip CHECK BLOOD SUGAR EVERY DAY NEEDED 03/09/2022 Active Icosapent Ethyl 1 g capsule Take 2 capsules by mouth in the morning and 2 capsules before bedtime. 03/11/2022 Active NovoLOG FLEXPEN 100 UNIT/ML injection INJECT 30 UNITS UNDER SKIN THREE TIMES DAILY 03/05/2022 Active Tresiba FlexTouch 200 UNIT/ML injection INJECT 30 UNITS UNDER SKIN EVERY DAY 03/05/2022 Active BD Pen Needle Michelle 2nd Gen 32G X 4 MM misc USE TO INJECT FOUR TIMES DAILY 03/05/2022 Active Lancets (OneTouch Delica Plus [id number]) misc USE TO CHECK BLOOD SUGAR EVERY DAY NEEDED. 03/09/2022 Active linaCLOtide (Linzess) 145 MCG capsule prn Active lisinopril (PRINIVIL) 5 MG tablet Take 5 mg by mouth 1 (one) time each day 03/28/2022 Active Omeprazole 20 MG Tablet Delayed Release Dispersible Take by mouth Active OXcarbazepine (TRILEPTAL) 600 MG tablet Take 600 mg by mouth 1 (one) time each day in the evening 03/30/2022 Active prazosin (MINIPRESS) 1 MG capsule Take 3 mg by mouth every night 03/29/2022 Active Ozempic, 1 MG/DOSE, 4 MG/3ML solution pen-injector INJECT 1 MG UNDER SKIN EVERY WEEK 03/28/2022 Active sertraline (ZOLOFT) 100 MG tablet Take 200 mg by mouth 1 (one) time each day in the morning 03/28/2022 Active simvastatin (ZOCOR) 10 MG tablet 1 (one) time each day in the evening 03/28/2022 Active [place]-3 Fatty Acids (Fish Oil) 1000 MG capsule delayed-release Take by mouth In addition to icosopent... Active Cholecalciferol (Vitamin D3) 50 MCG (2000 UT) chewable tablet Chew Active loratadine (CLARITIN) 10 MG tablet Take 10 mg by mouth 1 (one) time each day Active Active Problems Problem Noted Date Diagnosed Date History of hepatitis C 04/15/2022 Obstructive sleep apnea syndrome 04/15/2022 Pyuria 04/15/2022 Persistent proteinuria 04/11/2022 Dyslipidemia 04/11/2022 Diabetes mellitus 12/21/2019 Immunizations Name Administration Dates Next Due Influenza TIV (IM) 02/14/2022 Family History Medical History Relation Comments Kidney disease Neg Hx Social History Tobacco Use Types Packs/Day Years Used Date Smoking Tobacco: Some Days Cigarettes Smokeless Tobacco: Never Tobacco Cessation:Ready to Q uit: Not Asked; Counseling Given: Not Answered Alcohol Use Standard Drinks/Week Comments Not Currently 0 (1 standard drink = 0.6 oz pur e alcohol) Sex and Gender Information Value Date Recorded Sex Assigned at Not on file Gender Identity Not on file Sexual Orientation Not on file Last Filed Vital Signs Vital Sign Reading Time Taken Comments Blood Pressure 122/70 04/15/2022 9:03 AM HAZARDOUS MATERIALS WASTE TECHNICIAN Pulse 72 04/15/2022 9:03 AM HAZARDOUS MATERIALS WASTE TECHNICIAN Temperature 36.1 C (97 F) 04/15/2022 9:03 AM HAZARDOUS MATERIALS WASTE TECHNICIAN Respiratory Rate - - Oxygen Saturation - - Inhaled Oxygen Concentration - - Weight 125 kg (276 lb) 04/15/2022 9:03 AM HAZARDOUS MATERIALS WASTE TECHNICIAN Height 165.1 cm (5' 5 ) 04/15/2022 9:03 AM HAZARDOUS MATERIALS WASTE TECHNICIAN Body Mass Index 45.93 04/15/2022 9:03 AM HAZARDOUS MATERIALS WASTE TECHNICIAN Plan of Treatment Health Maintenance Due Date Last Done Comments Diabetic Foot Exam 10/05/1983 Ophthalmology Exam 10/05/1983 Pneumococcal PPSV23 Highest Risk Adult (1 of 3 - PCV13) 1992 Influenza Vaccine (#1) 2024 02/14/2022 Care Teams Biomedical Service Engineer Relationship Specialty Start Date End Date Tracy Izaguirre FNP PCP - General Family Medicine 04/15/22
--- OUTSIDE RECORDS SUMMARY | 2024-07-11 13:50 | XMS_ITS ---
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 Name Role Phone Darren Arevalo Primary Care Provider [phone] Allergies Allergen (clinical drug ingredient) Drug/Non Drug Allergy documented on EMR Reaction Allergy Type Onset Date Status capsize (uncoded) Unknown Allergy Ac tive erythromycin erythromycin (uncoded) Unknown Allergy Active asenapine saphris (uncoded) Unknown Allergy Ac tive Substance with sulfonamide structure and antibacterial mechanism of action (substance) sulfa (uncoded) Unknown Allergy Active REASON FOR VISIT 4 week F/U Medications Medication SIG (Take, Route, Frequency, Duration) Notes Start Date End Date Status Vascepa 1 GM 2 capsules with meal s Orally Twice a day for 30 day(s) Active Simvastatin 10 MG TAKE 1 TABLET BY MOUTH EVERY DAY IN THE EVENING for 30 Unknown Lancets - as directed three times daily for 33 days 02/11/2022 Unknown Amoxicillin-Pot Clavulanate 875-125 MG 1 tablet Orally every 12 hrs for 10 days Unknown Tresiba FlexTouch 200 UNIT/ML 25 units Subcutaneous once daily for 30 days 25U Unknown Omeprazole 20 MG 1 capsule 30 minutes before morning meal Orally Once a day for 30 day(s) Active Prazosin HCl 1 MG TAKE 3 CAPSULES BY MOUTH DAILY AT BEDTIME for 30 days Active buPROPion HCl ER (XL) 300 MG 1 tablet in the morning Orally Once a day for 30 days Active Sertraline HCl 100 MG 2 tablets every morning Orally Once a day for 30 days Active FreeStyle Regina 2 Sensor Systm Unknown Nystatin 846828 UNIT/GM 1 application Externally Twice a day Active Loratadine 10 MG 1 tablet Orally Once a day for 30 day(s) Active Multi Vitamin - 1 tablet Orally Once a day for 30 day(s) Active Mirena Active Lurasidone HCl 60 MG 1 tablet in the evening with food Orally Once a day for 30 days Active Albuterol Sulfate 2.5 MG/0.5ML as directed Inhalation Unknown NovoLIN R FlexPen 100 UNIT/ML as directed Injection 20U three daily Unknown Symbicort 80-4.5 MCG/ACT 2 puffs Inhalation Once a day Active Ibuprofen 200 MG 1 tablet with food o r milk as needed Orally Three times a day Unknown Aspirin Low Dose 81 MG 1 tablet Orally Once a day for 30 day(s) Active Lisinopril 5 MG 1 tablet Orally Once a day for 30 days Active Insulin Pen Needle 32G X 4 MM as directed for 30 days Unknown Fish Oil 1000 MG 1 capsule Orally Onc e a day for 30 day(s) Not-Taking FreeStyle Regina 2 Sensor - as directed for 14 days 01/27/2022 Unknown Albuterol Sulfate 108 (90 Base) MCG/ACT 1 puff as needed Inhalation every 4 hrs Active Gabapentin 300 MG 1 capsule every morning and 3 capsules every evening Orally as directed. for 7 days Active Ozempic (1 MG/DOSE) 4 MG/3ML as directed Subcutaneous Not-Taking Farxiga 5 MG 1 tablet Orally Once a day Active Glucagon 1 MG/0.2ML as directed Subcutaneous Active Baclofen 10 MG 1 tablet as needed Orally Twice a day Active Social History Sex Assigned At : Social History Observation Description Sex Assigned At Female Encounters Encounter Location Date Provider Diagnosis [address] [id number] 06/13/2024 Darren Arevalo Bipolar II disorder F31.81 ; Borderline personality disorder F60.3 ; Post traumatic stress disorder (PTSD) F43.10 and Anxiety, generalized F41.1 Assessments Encounter Date Diagnosis (ICD Code) Assessment Notes Treatment Notes Treatment Clinical Notes Section Notes 06/13/2024 Bipolar II disorder (ICD-10 - F31.81) Client with good response in regards to seasonal depression with increase in bupropion from 150 mg to 300 mg. Is recovering from PNA currently. Having fatigue from this but prior to PNA was having more motivation, energy and focus. No tx plan changes needed at this time. 06/13/2024 Borderline personality disorder (ICD-10 - F60.3) Client with good response in regards to seasonal depression with increase in bupropion from 150 mg to 300 mg. Is recovering from PNA currently. Having fatigue from this but prior to PNA was having more motivation, energy and focus. No tx plan changes needed at this time. 06/13/2024 Post traumatic stress disorder (PTSD) (ICD-10 - F43.10) Client with good response in regards to seasonal depression with increase in bupropion from 150 mg to 300 mg. Is recovering from PNA currently. Having fatigue from this but prior to PNA was having more motivation, energy and focus. No tx plan changes needed at this time. 06/13/2024 Anxiety, generalized (ICD-10 - F41.1) Client with good response in regards to seasonal depression with increase in bupropion from 150 mg to 300 mg. Is recovering from PNA currently. Having fatigue from this but prior to PNA was having more motivation, energy and focus. No tx plan changes needed at this time. 06/13/2024 Other Discussed sleep hygiene and caffeine intake with encouragement to limit electronic devices an hour before bed and to limit caffeine after 3:00pm. Exercise benefits for mood and health discussed. Psychoeducation regarding psychiatric illness provided. Client was educated about risks and benefits of medication, alternatives to medication, off label uses of medication, suicidal ideation with SSRIs, self-administrati on and compliance with medication along with how to safely store medication. Verbal informed consent obtained. Client agrees to return sooner if symptoms worsen or if suicidal or homicidal ideations occur. Client has the phone number to the 24-hour crisis line at [facility]. Questions addressed. Client verbalized understanding of all information and is agreeable to treatment plan. Client with good response in regards to seasonal depression with increase in bupropion from 150 mg to 300 mg. Is recovering from PNA currently. Having fatigue from this but prior to PNA was having more motivation, energy and focus. No tx plan changes needed at this time. Plan Of Treatment Medication Medication Name Sig Start Date Stop Date Notes Prazosin HCl 1 MG TAKE 3 CAPSULES BY M OUTH DAILY AT BEDTIME for 30 days buPROPion HCl ER (XL) 300 MG 1 tablet in the morning Orally Once a day for 30 days Sertraline HCl 100 MG 2 tablets every mo rning Orally Once a day for 30 days Lurasidone HCl 60 MG 1 tablet in the ember wade with food Orally Once a day for 30 days Treatment Notes Assessment Notes Other Discussed sleep hygi leeanne and caffeine intake with encouragement to limit electronic devices an hour before bed and to limit caffeine after 3:00pm. Exercise benefits for mood and health discussed. Psychoeducation regarding psychiatric illness provided. Client was educated about risks and benefits of medication, alternatives to medication, off label uses of medication, suicidal ideation with SSRIs, self-administration and compliance with medication along with how to safely store medication. Verbal informed consent obtained. Client agrees to return sooner if symptoms worsen or if suicidal or homicidal ideations occur. Client has the phone number to the 24-hour crisis line at [facility]. Questions addressed. Client verbalized understanding of all information and is agreeable to treatment plan. Next Appt Details Follow Up: 4 Weeks, Reason: Medication management - can be telehealth appt. or in office appt. Provider Name:Darren Salcedo , 07/11/2024 03:00:00 PM, [address] [place] [address] [address], [place], [address], Progress Notes * Perla LAWRENCE DDOB: [birth year] (48 yo F)Acc No.[id number]:06/13/2024 Patient: Ibrahima SHEIKHPerla Jerez Provider: Devonte Arevalo DNP, PMHNP-BC :1975 A ge:48 Y S ex:Female Date:06/13/2024 Address:[address] [place] [address] [address], [id number] Subjective: * Chief Complaints: * 4 week F/U * HPI: I nterim History: Emergency room visit N o. W as hospitalized N o.? D epression Screening: PHQ-9 L ittle interest or pleasure in doing things N ot at all, F eeling down, depressed, or hopeless S everal days, T rouble falling or staying asleep, or sleeping too much S everal days, F eeling tired or having little energy S everal days, P oor appetite or overeating S everal days, F eeling bad about yourself or that you are a failure, or have let yourself or your family down S everal , T rouble concentrating on things, such as reading the newspaper or watching television M ore than half the days, M oving or speaking so slowly that other people could have noticed; or the opposite, being so fidgety or restless that you have been moving around a lot more than usual S ever, T houghts that you would be better off or of hurting yourself in some way S (Consider Suicide Assessment Risk), T otal Score 1 0, I nterpretation M oderate Depression. S creening: [place] Suicide Severity Rating Scale (LF) D o you want to initiate with S creener form, 1 . Wish to be : Have you wished you were or wished you could go to sleep and not wake up? N o, 2 . Suicidal Thoughts: Have you actually had any thoughts of killing yourself? N o, 6 . Suicide Behavior Question: Have you ever done anything,started to do anything, or prepared to end your life? N o. D o Not Use CSSRS Interpretation and Follow Up Plan: CSSRS Interpretation and Follow Up Plan. CSSRS Interpretation and Follow Up Plan M oderate or High risk requires selection of a follow up plan C SSRS No/Low: intervention not needed at this time.? S ummary: Session conducted telephonically with client's consent. Client is pleasant and conversational. Perla Lawrence is a 48-year-old female who recently experienced pneumonia. She reports feeling rundown and is still in the recovery phase, which has affected her concentration and memory. Perla mentions that she has been stressed due to her illness and other responsibilities, including her coursework in statistics and analytics. 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 Perla is aware that recovery from pneumonia can take time and is trying to balance her commitments while allowing herself to rest. Perla is currently taking bupropion for her mental health, which she reports is working well. She mentions that she has been experiencing some memory issues, which she attributes to both her mental health and her past drug use. Despite these challenges, Perla is actively working on boosting her cognitive abilities and managing her mental health. She is aware of the importance of self-care and is trying to listen to her body, allowing herself extra rest as needed. The patient has been dealing with stress due to her academic commitments and personal life. Is in jew choirs for hobby/stress reliever. Denies SIB/SI/HI/AVH. Denies mood swings/sanam. HISTORICAL BACKGROUND: Has a fiance. Sebas has 2 kids with intellectual disabilities. 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 Prior PSYCHOTROPIC Trials: Trileptal = dizziness, Seroquel = weight gain, Risperidone = weight gain LABWORK: Goals: Getting through college. Coping strategies: Maryanne painting, hanging out with friends, going to movies. LMP/BC Caffeine use: Dr. Chapin Zero daily, tries to drink a lot of water daily Drugs/ETOH: Denies Cig/Vape use: Therapy: Medications effective: Yes Medications adherence: Y es Medication side effects: Possible dry mouth from Wellbutrin or DM med, unclear which cause Sleep: Restarting CPAP. Recently saw sleep doctor. Changed her mask and likes new mask better. Appetite: Normal Depression: Mild - improved with increased bupropion (150 mg to 300 mg at last appt) Anxiety: Mild Anger/Irritability: Mild Hallucinations/Paranoia: Denies Suicidal ideation: Denies Homicidal ideation: Denies Medical concerns or hospitalizations: Multiple medical comorbities = working with her PCP on treatment of these including DM II Any new medications from other providers: Denies Doctors Tracy Gonzalez APRN. * ROS: P sych ROS: Constitutional D enies. E yes D enies. E ars/Nose/Mouth/Throat D enies. R espiratory D enies. A llergic/Immunologic D enies.?Cardiovascular R eports, c hest pain last week. G I D enies. M usculoskeletal?Denies. N eurological D enies. * PSYCH ROS2: Elevated mood symptoms D enies. m ood swings D enies. T houghts of self harm D enies. D enies H omicidal thoughts. H yperactivity?Admits. A dmits A nxiety, t hat is mild. D enies A uditory/visual hallucinations. D enies D elusions. A dmits D epressed mood, w hich is mild. D enies D ifficulty sleeping. D enies E ating disorder. A dmits S tressors, h ealth , relationship , work , Trauma History. D enies S ubstance abuse. D enies?Suicidal thoughts. * Medical History: * Surgical History: c holecystectomy umbilical hernia repair ventral hernia repair Head and arms abcesss * Hospitalization/Major Diagno stic Procedure: M H Possible stroke Hussain Chest pain 08/2022 * Family History: F ather: alive. M other: alive. 1 brother(s) , 8 sister(s) . . Adopted. * Social History: P rimary Social History: L iving Arrangement L iving Arrangement: I ndependent Living, L iving with: Joaquín llamas(s), I s this a supportive environment? Y es. A lcohol Use A lcohol Use Frequency: N ever. I llicit Substance Usage I llicit Substance Usage: N o. E mployment Status E mployment Status: O n Disability. * Medications: T akingGlucagon 1 MG/0.2ML Solution Prefilled Syringe as directed Subcutaneous Baclofen 10 MG Tablet 1 tablet as needed Orally Twice a day Farxiga 5 MG Tablet 1 tablet Orally Once a day Gabapentin 300 MG Capsule 1 capsule every morning and 3 capsules every evening Orally as directed. Lisinopril 5 MG Tablet 1 tablet Orally Once a day Albuterol Sulfate 108 (90 Base) MCG/ACT Aerosol Powder Breath Activated 1 puff as needed Inhalation every 4 hrs Aspirin Low Dose 81 MG Tablet Delayed Release 1 tablet Orally Once a day Symbicort 80-4.5 MCG/ACT Aerosol 2 puffs Inhalation Once a day Mirena Loratadine 10 MG Tablet 1 tablet Orally Once a day Multi Vitamin - Tablet 1 tablet Orally Once a day Nystatin 556663 UNIT/GM Powder 1 application Externally Twice a day Omeprazole 20 MG Capsule Delayed Release 1 capsule 30 minutes before morning meal Orally Once a day Vascepa 1 GM Capsule 2 capsules with meals Orally Twice a day Lurasidone HCl 60 MG Tablet 1 tablet in the evening with food Orally Once a day buPROPion HCl ER (XL) 300 MG Tablet Extended Release 24 Hour 1 tablet in the morning Orally Once a day Sertraline HCl 100 MG Tablet 2 tablets every morning Orally Once a day Prazosin HCl 1 MG Capsule TAKE 3 CAPSULES BY MOUTH DAILY AT BEDTIME Taking Glucagon 1 MG/0.2ML Solution Prefilled Syringe as directed Subcutaneous Taking Baclofen 10 MG Tablet 1 tablet as needed Orally Twice a day Taking Farxiga 5 MG Tablet 1 tablet Orally Once a day Taking Gabapentin 300 MG Capsule 1 capsule every morning and 3 capsules every evening Orally as directed. Taking Lisinopril 5 MG Tablet 1 tablet Orally Once a day Taking Albuterol Sulfate 108 (90 Base) MCG/ACT Aerosol Powder Breath Activated 1 puff as needed Inhalation every 4 hrs Taking Aspirin Low Dose 81 MG Tablet Delayed Release 1 tablet Orally Once a day Taking Symbicort 80-4.5 MCG/ACT Aerosol 2 puffs Inhalation Once a day Taking Mirena Taking Loratadine 10 MG Tablet 1 tablet Orally Once a day Taking Multi Vitamin - Tablet 1 tablet Orally Once a day Taking Nystatin 745426 UNIT/GM Powder 1 application Externally Twice a day Taking Omeprazole 20 MG Capsule Delayed Release 1 capsule 30 minutes before morning meal Orally Once a day Taking Vascepa 1 GM Capsule 2 capsules with meals Orally Twice a day Taking Lurasidone HCl 60 MG Tablet 1 tablet in the evening with food Orally Once a day Taking buPROPion HCl ER (XL) 300 MG Tablet Extended Release 24 Hour 1 tablet in the morning Orally Once a day Taking Sertraline HCl 100 MG Tablet 2 tablets every morning Orally Once a day Taking Prazosin HCl 1 MG Capsule TAKE 3 CAPSULES BY MOUTH DAILY AT BEDTIME Not-TakingOzempic (1 MG/DOSE) 4 MG/3ML Solution Pen-injector as directed Subcutaneous Fish Oil 1000 MG Capsule 1 capsule Orally Once a day Not-Taking Ozempic (1 MG/DOSE) 4 MG/3ML Solution Pen-injector as directed Subcutaneous Not-Taking Fish Oil 1000 MG Capsule 1 capsule Orally Once a day UnknownFreeStyle Regina 2 Sensor - Miscellaneous as directed Insulin Pen Needle 32G X 4 MM Miscellaneous as directed Ibuprofen 200 MG Tablet 1 tablet with food or milk as needed Orally Three times a day NovoLIN R FlexPen 100 UNIT/ML Solution Pen-injector as directed Injection , Notes to Pharmacist: 20U three dailyAlbuterol Sulfate 2.5 MG/0.5ML Nebulization Solution as directed Inhalation FreeStyle Regina 2 Sensor Systm Tresiba FlexTouch 200 UNIT/ML Solution Pen- injector 25 units Subcutaneous once daily , Notes to Pharmacist: 25ULancets - Miscellaneous as directed three times daily Amoxicillin-Pot Clavulanate 875-125 MG Tablet 1 tablet Orally every 12 hrs Simvastatin 10 MG Tablet TAKE 1 TABLET BY MOUTH EVERY DAY IN THE EVENING Unknown FreeStyle Regina 2 Sensor - Miscellaneous as directed Unknown Insulin Pen Needle 32G X 4 MM Miscellaneous as directed Unknown Ibuprofen 200 MG Tablet 1 tablet with food or milk as needed Orally Three times a day Unknown NovoLIN R FlexPen 100 UNIT/ML Solution Pen-injector as directed Injection , Notes to Pharmacist: 20U three dailyUnknown Albuterol Sulfate 2.5 MG/0.5ML Nebulization Solution as directed Inhalation Unknown FreeStyle Regina 2 Sensor Systm Unknown Tresiba FlexTouch 200 UNIT/ML Solution Pen-injector 25 units Subcutaneous once daily , Notes to Pharmacist: 25UUnknown Lancets - Miscellaneous as directed three times daily Unknown Amoxicillin-Pot Clavulanate 875-125 MG Tablet 1 tablet Orally every 12 hrs Unknown Simvastatin 10 MG Tablet TAKE 1 TABLET BY MOUTH EVERY DAY IN THE EVENING * Allergies: s ulfaerythromycinsaphriscapsizeno[Allergies Verified] Objective: * Vitals: * Examination: P sychiatry: APPEARANCE: u nable to assess - telephone appointment .? ATTENTION: g ood. ORIENTATION: p erson, place and time. ATTITUDE: c ooperative. AFFECT: u nable to assess - telephone appointment, verbally full . MOOD: e uthymic . SPEECH: n ormal/R/V/R. PSYCHOMOTOR ACTIVITY: u nable to assess - telephone appointment . ABNORMAL BODY MOVEMENTS: u nable to assess - telephone appointment . CURRENT HOMICIDALITY: n one. CURRENT SUICIDALITY: n ot presently. THOUGHT PROCESS: i ntact linear, goal-directed . THOUGHT CONTENT: u nremarkable . PERCEPTUAL DISORDERS: n o perceptual disorder noted . INSIGHT: f air . JUDGEMENT: f air . Assessment: * Assessment: 1. B ipolar II disorder - F31.81 (Primary) 2 . B orderline personality disorder - F60.3 3 . P ost traumatic stress disorder (PTSD) - F43.10 ?4. A nxiety, generalized - F41.1 Client with good response in regards to seasonal depression with increase in bupropion from 150 mg to 300 mg. I s recovering from PNA currently. Having fatigue from this but prior to PNA was having more motivation, energy and focus. No tx plan changes needed at this time. Plan: * Treatment: 2. P ost traumatic stress disorder (PTSD) Refill Prazosin HCl Capsule, 1 MG, TAKE 3 CAPSULES BY MOUTH DAILY AT BEDTIME, 30 days, 90, Refills 1. 3. A nxiety, generalized Refill Sertraline HCl Tablet, 100 MG, 2 tablets every morning, Orally, Once a day, 30 days, 60 Tablet, Refills 1. 4. O thers Notes: Discussed sleep hygiene and caffeine intake with encouragement to limit electronic devices an hour before bed and to limit caffeine after 3:00pm. Exercise benefits for mood and health discussed. Psychoeducation regarding psychiatric illness provided. Client was educated about risks and benefits of medication, alternatives to medication, off label uses of medication, suicidal ideation with SSRIs, self-administration and compliance with medication along with how to safely store medication. Verbal informed consent obtained. Client agrees to return sooner if symptoms worsen or if suicidal or homicidal ideations occur. Client has the phone number to the 24-hour crisis line at [facility]. Questions addressed. Client verbalized understanding of all information and is agreeable to treatment plan.? * Procedure Codes: G 2024 [facility] TE[facility] EST PATIENT [id number] CLIN DEPRESSION SCREEN DOC * Follow Up: 4 Weeks (Reason: Medication management - can be telehealth appt. or in office appt.) * * CONTROLLER Sign off status: Completed true * Provider: Devonte Arevalo DNP, PMHNP- Date: 06/13/2024 Generated for Yandy perera/Boubacar/Mario on: 0 07/11/2024 01:50 PM CDT History and Physical Notes * HPI (History of Present Illness) Category Sub-Category Detail Notes Category Not es Interim History Was hospitalized No Emergency room visit No Depression Screening PHQ-9 Little inte rest or pleasure in doing things: Not at all Feeling down, depressed, or hopeless: Se veral days Trouble falling or staying asleep, or sl eeping too much: Several days Feeling tired or having little energy: S everal days Poor appetite or overeating: Several day s Feeling bad about yourself o r that you are a failure, or have let yourself or your family down: Several days Trouble concentrating on thi ngs, such as reading the newspaper or watching television: More than half the days Moving or speaking so slowly that other people could have noticed; or the opposite, being so fidgety or restless that you have been moving around a lot more than usual: Several days Thoughts that you would be b jordana off or of hurting yourself in some way: Several days (Consider Suicide Assessment Risk) Total Score: 10 Interpretation: Moderate Depression Screening [place] Suicide Sev erity Rating Scale (LF) Do you want to initiate with: Screener form 1. Wish to be : Have you wished you were or wished you could go to sleep and not wake up?: No 2. Suicidal Thoughts: Have you actually had any thoughts of killing yourself?: No 6. Suicide Behavior Question: Have you ever done anything,started to do anything, or prepared to end your life?: No Do Not Use CSSRS Interpretation and Follow Up Plan CSSRS Interpretation and Follow Up Plan Moderate or High risk requires selection of a follow up plan: CSSRS No/Low: intervention not needed at this time Examination Category Sub-Category Detail Notes Category Not es Psychiatry APPEARANCE: unable to assess - telephone appointment ATTITUDE: cooperative PSYCHOMOTOR ACTIVITY: unable to assess - telephone appointment ABNORMAL BODY MOVEMENTS: unable to asses s - telephone appointment ATTENTION: good ORIENTATION: person, place and ti me AFFECT: unable to assess - t elephone appointment, verbally full MOOD: euthymic SPEECH: normal/R/V/R INSIGHT: fair JUDGEMENT: fair THOUGHT PROCESS: intact linear, goal- directed THOUGHT CONTENT: unremarkable PERCEPTUAL DISORDERS: no perceptual diso rder noted CURRENT SUICIDALITY: not presently CURRENT HOMICIDALITY: none
[2024-07-11 14:00] LABS: Alanine Aminotransferase 19 U/L (6-35); Albumin Level 4.4 g/dL (3.5-5.1); Alkaline Phosphatase 62 U/L (38-126); Anion Gap 12 mmol/L (4-12); Aspartate Amino Transferase 30 U/L (14-36); Bilirubin,Total 0.6 mg/dL (0.2-1.3); Blood Urea Nitrogen 22 mg/dL (7-17); Calcium 9.3 mg/dL (8.4-10.2); Carbon Dioxide 22 mmol/L (22-30); Chloride 104 mmol/L (98-107); Cholesterol 204 mg/dL (0-200); Estimated Glomerular Filt Rate 59; Glucose 207 mg/dL (65-110); HDL Direct 38 mg/dL; Potassium 4.1 mmol/L (3.4-5.0); Sodium 138 mmol/L (137-145); Triglycerides 400 mg/dL (<150)
[2024-07-11 14:15] LABS: LDL Cholesterol Direct 95 mg/dL
[2024-07-11 19:45] LABS: Creatinine Urine 130.6 mg/dL; Total Protein Urine Random 38 mg/dL; Ur Ttl Prot Creatinine Ratio 0.29 mg/mg (0-0.20)
== END 2024-07-11 12:33 | disposition home or self-care (01) ==
LOC: ANHGOSHLAB 12:35
PROVIDERS: Internal Medicine Cardiovascular Disease; PCP Internal Medicine; Visit Provider Internal Medicine Nephrology
DX: R80.1 Persistent proteinuria, unspecified (principal); E78.5 Hyperlipidemia, unspecified; N18.9 Chronic kidney disease, unspecified
CPT/HCPCS: 36415; 80053; 80061; 82570; 84156; 85027

== ENCOUNTER 2024-07-17 11:40 | Outpatient (CLI) | payer MEDICARE, SELFPAY ==
--- NOTE | ~2024-07-17 | XR_ITS ---
Clinical Indication: Pneumonia PA and lateral views of the chest: Comparison: 01/06/2023 Findings: The lungs are clear, without evidence of focal consolidation or pleural effusion. Cardiome diastinal silhouette is within normal limits. Bones and soft tissues are unremarkable. Impression: Normal chest. Reviewed, dictated and finalized at location . Impression: Normal chest.
--- OUTSIDE RECORDS SUMMARY | 2024-07-17 14:16 | XMS_ITS | Clinical Summary ---
Author Organization [facility] Address [address] [place] [address] Care Team Providers Care Travel Counselor Name Role Phone Tim Wagoner DO Primary Care Provider [phone] Allergies Active Allergy Reactions Criticality Noted Date Comments Asenapine Shortness of breath High 08/09/2020 Capsaicin Unknown 10/31/2021 Erythromycin Rash Medium 08/09/2020 Erythromycin Base Unknown 10/31/2021 Sulfa (Sulfonamide Antibiotics) Rash Medium 01/2021 Medications albuterol HFA (PROVENTIL HFA,VENTOLIN HFA,PROAIR HFA) 90 mcg/actuation inhaler 2 puffs every 4 (four) hours as needed 07/24/2021 Active albuterol HFA (PROVENTIL HFA,VENTOLIN HFA,PROAIR HFA) 90 mcg/actuation inhaler 2 puffs every 4 (four) hours as needed Active aspirin 81 mg enteric coated tablet Take 81 mg by mouth daily Active Symbicort 80-4.5 mcg/actuation inhaler 2 (two) times a day 07/24/2021 Active buPROPion XL (WELLBUTRIN XL) 150 mg 24 hr tablet Take 150 mg by mouth every morning 10/22/2021 Active gabapentin (NEURONTIN) 100 mg capsule Take by mouth daily as needed 09/20/2021 Active gabapentin (NEURONTIN) 300 mg capsule TAKE ONE CAPSULE BY MOUTH EVERY MORNING AND 2 CAPSULES BY MOUTH EVERY EVENING 10/22/2021 Active NovoLOG 100 unit/mL (3 mL) pen for injection 20 units tid 09/18/2021 Active TRESIBA 200 unit/mL (3 mL) pen for injection Unsure amount of units 09/18/2021 Active linaCLOtide (LINZESS) 145 mcg capsule prn Active lisinopriL (PRINIVIL,ZESTR IL) 5 mg tablet Take 5 mg by mouth daily 07/25/2021 Active nystatin powder 2 (two) times a day Active omeprazole 20 mg tablet,disinteg rat, delay rel Take by mouth A ctive OXcarbazepine (TRILEPTAL) 600 mg tablet Take 600 mg by mouth nightly 10/22/2021 Active prazosin (MINIPRESS) 1 mg capsule Take 3 mg by mouth nightly 10/22/2021 Active sertraline (ZOLOFT) 100 mg tablet Take 200 mg by mouth every morning 10/22/2021 Active Active Problems No known active problems Surgical History Surgery Date Site/Laterality Comments HERNIA REPAIR 05/03/1999 - 05/02/2000 HERNIA REPAIR 05/03/2007 - 05/02/2008 HERNIA REPAIR 05/03/2014 - 05/02/2015 CHOLECYSTECTOMY WOUND EXPLORATION Medical History Medical History Date Comments Type 2 diabetes mellitus (HCC) Depression GERD (gastroesophageal reflux disease) Hypertension Morbid obesity (HCC) Sleep apnea COPD (chronic obstructive pulmonary disease) (HC C) Social History Tobacco Use Types Packs/Day Years Used Date Smoking Tobacco: Every Day Vaping Personal Safety Answer Date Recorded Getting School Help Needed Not on file 05/07 Comments Unknown Sex and Gender Information Value Date Recorded Sex Assigned at Not on file Legal Sex Female 3:25 PM CDT Gender Identity Not on file Sexual Orientation Not on file Obstetrics History Last Filed Vital Signs Vital Sign Reading Time Taken Comments Blood Pressure 129/87 10/31/2021 10:01 AM CDT Pulse 116 10/31/2021 10:01 AM CDT Temperature 36.7 C (98.1 F) 10/31/2021 10:01 AM CDT Respiratory Rate - - Oxygen Saturation - - Inhaled Oxygen Concentration - - Weight 119.6 kg (263 lb 9.6 oz) 022 10:01 AM CDT Height 165.1 cm (5' 5 ) 10/31/2021 10:0 1 AM CDT Body Mass Index 43.87 10/31/2021 10:01 AM CDT Plan of Treatment Health Maintenance Due Date Last Done Comments Breast Cancer Screening-Mammogram 1975 Cervical Cancer Screening 1975 Colon Cancer Screening-Colonoscopy 1975 Depression Screening 1975 Hepatitis C Screening 1973 DTaP/Tdap/Td Vaccine (1 - Tdap) 1984 Hepatitis B Screening 10/05/1991 Regular Well Visit/Exam 18-64 10/05/1991 Pneumococcal vaccine <65 (1 of 2 - PCV) 1992 Zoster Vaccine (1 of 2) 10/05/2023 Covid-19 Vaccine ( season) 2024 04/14/2021, 09/05/2020, 08/15/2020 Influenza Vaccine (#1) 2024 02/14/2022, 2015 Insurance [facility] MEDICARE [facility] Address: [address] [address] [place] [address] [employer] Care Teams Travel Counselor Relationship Specialty Start Date End Date Tim Wagoner DO PCP - General 12/27/19
--- OUTSIDE RECORDS SUMMARY | 2024-07-17 14:16 | XMS_ITS | Patient Health Summary ---
Author Organization [facility] Address [address] [place] [address] Care Team Providers Care Photoengraving Helper Name Role Phone Unknown, Provider Primary Care Provider Unavaila ble Note from [facility],non-owned Affiliates and Associated Physician Practices is amultiple site organization consisting of ambulatory clinics and hospital sitesin [place], [place], [place] and [place]. This disclosure is being madepursuant to the Care Everywhere program and may not contain all information available regarding this patient. Last updated 18.[facility] [employer] Allergies * Erythromycin(Rash) -Medium Criticality * Asenapine(Shortness [...] (AMB) POC (08/09/2020 5:49 PM CDT) Pathologist [facility] [place] Influenza A Antigen Rapid Negative Negative [facility] Influenza B Antigen Rapid Negative Negative [facility] SARS-CoV-2 Ag Negative Negative [facility] COVID Internal Control Acceptable Acceptable [facility] Lot # [id number] [facility] Expiration Date 03/04/22 [facility] Instrument Serial Number [id number] [facility] Microbiology SPECIMEN FROM NASAL FOSSAE / Unknown 08/09/2020 5:49 PM CDT Cuco Max APRN-INFRASTRUCTURE DESIGN ENGINEER LAB - POINT OF CARE ORDERABLES [facility] [address] [phone] * MAMMO BILAT DIAGNOSTIC (11/05/2017 10:19 AM [...] studies requested for comparison. Please note: The [place] [employer] has determined that screening mammograms [...] Narrative 11/05/2017 10:34 AM CDT MAMMO BILAT DIAGNOSTIC*[id number] WITH 3D TOMOSYNTHESIS AND CAD HISTORY: No [...] abnormalities, depending on clinical impression. Courtney Mo ADJUNCT PHILOSOPHY FACULTY-INFRASTRUCTURE DESIGN ENGINEER MAMMO ORDERABLES Care Teams Photoengraving Helper Relationship Specialty Start Date End Date Unknown, Provider PCP - General 08/09/20
--- OUTSIDE RECORDS SUMMARY | 2024-07-17 14:16 | XMS_ITS | Clinical Summary ---
Author Organization [facility] Address [address] [place] [address] Phone Care Team Providers Care Hand Booked Folder And Stitcher Name Role Phone ZinaTracy alvarado DIEUDONNE Primary Care Provider [phone] Allergies Active Allergy Reactions Criticality Noted Date [...] DAILY 03/05/2022 Active Lancets (OneTouch Delica Plus [id number]) misc USE TO CHECK BLOOD SUGAR EVERY [...] each day in the evening 03/28/2022 Active Hastings-3 Fatty Acids (Fish Oil) 1000 MG capsule [...] Comments Blood Pressure 122/70 04/15/2022 9:03 AM CARDIOVASCULAR TECHNICIAN Pulse 72 04/15/2022 9:03 AM CARDIOVASCULAR TECHNICIAN Temperature 36.1 C (97 F) 04/15/2022 9:03 AM CARDIOVASCULAR TECHNICIAN Respiratory Rate - - Oxygen Saturation - - Inhaled Oxygen Concentration - - Weight 125 kg (276 lb) 04/15/2022 9:03 AM CARDIOVASCULAR TECHNICIAN Height 165.1 cm (5' 5 ) 04/15/2022 9:03 AM CARDIOVASCULAR TECHNICIAN Body Mass Index 45.93 04/15/2022 9:03 AM CARDIOVASCULAR TECHNICIAN Plan of Treatment Health Maintenance Due Date Last Done Comments Diabetic Foot Exam 10/05/1983 Ophthalmology Exam 10/05/1983 Pneumococcal PPSV23 Highest Risk Adult (1 of 3 - PCV13) 1992 Influenza Vaccine (#1) 2024 02/14/2022 Care Teams Hand Booked Folder And Stitcher Relationship Specialty Start Date End Date Tracy Izaguirre FNP PCP - General Family Medicine 04/15/22
--- OUTSIDE RECORDS SUMMARY | 2024-07-17 14:16 | XMS_ITS | Referral Summary ---
Author Organization [facility] Address [address] [place] [address] Care Team Providers Care Cutter Finisher Name Role Phone Unknown, Provider Primary Care Provider Unavaila ble Source Comments [facility],non-owned Affiliates and Associated Physician Practices is amultiple site organization consisting of ambulatory clinics and hospital sitesin [place], [place], [place] and [place]. This disclosure is being madepursuant to the Care Everywhere program and may not contain all information available regarding this patient. Last updated 18.[facility] [employer] Allergies Active Allergy Reactions Criticality Noted Date [...] studies requested for comparison. Please note: The [place] [employer] has determined that screening mammograms [...] Narrative 11/05/2017 10:34 AM CDT MAMMO BILAT DIAGNOSTIC*[id number] WITH 3D TOMOSYNTHESIS AND CAD HISTORY: No [...] depending on clinical impression. Courtney García Chepe SCHOOL COMMISSIONER-DREDGE WORKER MAMMO ORDERABLES from Last 3 Months or Most Recently Relevant to Health Maintenance Care Teams Cutter Finisher Relationship Specialty Start Date End Date Unknown, Provider PCP - General 08/09/20
--- OUTSIDE RECORDS SUMMARY | 2024-07-17 14:16 | XMS_ITS ---
Author Organization [facility] Address [address] [place] [address] Care Team Providers Care History Teacher Name Role Phone Darren Arevalo Primary Care Provider [phone] Allergies Allergen (clinical drug ingredient) Drug/Non Drug [...] FreeStyle Regina 2 Sensor Systm Unknown Nystatin 366118 UNIT/GM 1 application Externally Twice a day [...] Female Encounters Encounter Location Date Provider Diagnosis [address] [address] 06/13/2024 Darren Arevalo Bipolar II disorder F31.81 [...] number to the 24-hour crisis line at [facility]. Questions addressed. Client verbalized understanding of all [...] number to the 24-hour crisis line at [facility]. Questions addressed. Client verbalized understanding of all information and is agreeable to treatment plan. Next Appt Details Follow Up: 4 Weeks, Reason: Medication management - can be telehealth appt. or in office appt. Provider Name:Darren Salcedo , 08/08/2024 03:00:00 PM, [address] [place] [address] [place], [address], Progress Notes * Perla LAWRENCE DDOB: [birth year] (48 yo F)Acc No.[id number]:06/13/2024 Patient: Ibrahima SHEIKHPerla Jerez Provider: Devonte Arevalo DNP, PMHNP-BC :1975 A ge:48 Y S ex:Female Date:06/13/2024 Address:[address] [place] [address] [place], [facility] Subjective: * Chief Complaints: * 4 week [...] I nterpretation M oderate Depression. S creening: [place] Suicide Severity Rating Scale (LF) D o [...] academic commitments and personal life. Is in caodaism choirs for hobby/stress reliever. Denies SIB/SI/HI/AVH. Denies [...] 1 tablet Orally Once a day Nystatin 470883 UNIT/GM Powder 1 application Externally Twice a [...] tablet Orally Once a day Taking Nystatin 877330 UNIT/GM Powder 1 application Externally Twice a [...] number to the 24-hour crisis line at [facility]. Questions addressed. Client verbalized understanding of all information and is agreeable to treatment plan.? * Procedure Codes: G 2024 [facility]LE[facility] EST PATIENT [id number] CLIN DEPRESSION SCREEN DOC * Follow Up: 4 Weeks (Reason: Medication management - can be telehealth appt. or in office appt.) * * RIBUTION SPEC Sign off status: Completed true * Provider: Devonte Arevalo DNP, PMHNP- Date: 0 06/13/2024 Generated for Yandy perera/Boubacar/Mario on: 0 07/17/2024 01:09 PM CDT History and Physical Notes * [...] Total Score: 10 Interpretation: Moderate Depression Screening [place] Suicide Sev erity Rating Scale (LF) Do [...]
--- OUTSIDE RECORDS SUMMARY | 2024-07-17 14:16 | XMS_ITS | Clinical Summary ---
Author Organization [facility] Address [address] [place] [address] Care Team Providers Care Unloader Operator Name Role Phone Unknown, Provider Primary Care Provider Unavaila ble Source Comments [facility],non-owned Affiliates and Associated Physician Practices is amultiple site organization consisting of ambulatory clinics and hospital sitesin [place], [place], [place] and [place]. This disclosure is being madepursuant to the Care Everywhere program and may not contain all information available regarding this patient. Last updated 18.[facility] [employer] Allergies Active Allergy Reactions Criticality Noted Date [...] to complete this topic MENINGOCOCCAL (Group B) VACC INE SHARED DECISION-MAKING Aged Out No longer eligibl e based on patient's age to complete this topic MENINGOCOCCAL GROUPS A/C/Y/W VACCINE Aged Out No longer eligible b ased on patient's age to complete this topic [...] studies requested for comparison. Please note: The [place] [employer] has determined that screening mammograms [...] Narrative 11/05/2017 10:34 AM CDT MAMMO BILAT DIAGNOSTIC*[id number] WITH 3D TOMOSYNTHESIS AND CAD HISTORY: No [...] abnormalities, depending on clinical impression. Courtney Mo YARN HAULER-INFANTRYMAN MAMMO ORDERABLES from Last 3 Months or Most Recently Relevant to Health Maintenance Care Teams Unloader Operator Relationship Specialty Start Date End Date Unknown, Provider PCP - General 08/09/20
--- OUTSIDE RECORDS SUMMARY | 2024-07-17 14:16 | XMS_ITS | Referral Summary ---
Author Organization [facility] Address [address] [place] [address] Care Team Providers Care Health Actuary Name Role Phone Tim Wagoner DO Primary Care Provider [phone] Allergies Active Allergy Reactions Criticality Noted Date [...] 10/31/2021 10:01 AM CDT Plan of Treatment Not on file Insurance [place] MEDICARE [facility] MEDICARE [employer] Care Teams Health Actuary Relationship Specialty Start Date End Date Tim Wagoner DO PCP - General 12/27/19
--- OUTSIDE RECORDS SUMMARY | 2024-07-17 14:16 | XMS_ITS | Patient Health Record ---
Author Organization [facility] Address [address] [place] [address] Care Team Providers Care Environmental Health And Safety Intern Name Role Phone Darren Arevalo Primary Care Provider [phone] Kelley Mtz Unavailable [phone] Allergies Allergen (clinical drug ingredient) Drug/Non Drug Allergy documented on EMR Reaction Allergy Type Onset Date Status capsize (uncoded) Unknown Allergy Ac tive erythromycin erythromycin (uncoded) Unknown Allergy Active asenapine saphris (uncoded) Unknown Allergy Ac tive Substance with sulfonamide structure and antibacterial mechanism of action (substance) sulfa (uncoded) Unknown Allergy Active Reason For Referral No Information Medications Medication SIG (Take, Route, Frequency, Duration) Notes Start Date End Date Status Symbicort 80-4.5 MCG/ACT 2 puffs Inhalation Once a day Active Lisinopril 5 MG 1 tablet Orally Once a day for 30 days Active Insulin Pen Needle 32G X 4 MM as directed for 30 days Unknown Albuterol Sulfate 108 (90 Base) MCG/ACT 1 puff as needed Inhalation every 4 hrs Active Aspirin Low Dose 81 MG 1 tablet Orally Once a day for 30 day(s) Active Prazosin HCl 1 MG TAKE 3 CAPSULES BY MOUTH DAILY AT BEDTIME for 30 days Active Albuterol Sulfate 2.5 MG/0.5ML as directed Inhalation Unknown Mirena Active Loratadine 10 MG 1 tablet Orally Once a day for 30 day(s) Active Multi Vitamin - 1 tablet Orally Once a day for 30 day(s) Active Lurasidone HCl 60 MG 1 tablet in the evening with food Orally Once a day for 30 days Active Glucagon 1 MG/0.2ML as directed Subcutaneous Active buPROPion HCl ER (XL) 300 MG 1 tablet in the morning Orally Once a day for 30 days Active Baclofen 10 MG 1 tablet as needed Orally Twice a day Active Ibuprofen 200 MG 1 tablet with food o r milk as needed Orally Three times a day Unknown Sertraline HCl 100 MG 2 tablets every morning Orally Once a day for 30 days Active NovoLIN R FlexPen 100 UNIT/ML as directed Injection 20U three daily Unknown Nystatin 498234 UNIT/GM 1 application Externally Twice a day Active Omeprazole 20 MG 1 capsule 30 minutes before morning meal Orally Once a day for 30 day(s) Active FreeStyle Regina 2 Sensor Systm Unknown Tresiba FlexTouch 200 UNIT/ML 25 units Subcutaneous once daily for 30 days 25U Unknown Gabapentin 300 MG 1 capsule every morning and 3 capsules every evening Orally as directed. for 7 days Active Simvastatin 10 MG TAKE 1 TABLET BY MOUTH EVERY DAY IN THE EVENING for 30 Unknown Ozempic (1 MG/DOSE) 4 MG/3ML as directed Subcutaneous Not-Taking Fish Oil 1000 MG 1 capsule Orally Onc e a day for 30 day(s) Not-Taking FreeStyle Regina 2 Sensor - as directed for 14 days 01/27/2022 Unknown Lancets - as directed three times daily for 33 days 02/11/2022 Unknown Amoxicillin-Pot Clavulanate 875-125 MG 1 tablet Orally every 12 hrs for 10 days Unknown Farxiga 5 MG 1 tablet Orally Once a day Active Vascepa 1 GM 2 capsules with meal s Orally Twice a day for 30 day(s) Active Social History Tobacco Use: Social History Observation Description Date Details (start date - stop date) Current Smoker NA - NA Sex Assigned At : Social History Observation Description Sex Assigned At Female Dont use, Tobacco Use/Smoking Question Answer Notes Are you a Uses tobacco in other forms Alcohol Screen (Audit-C) Question Answer Notes Did you have a drink containing alcohol in the p ast year? No Tobacco Control (Standard) Question Answer Notes Tobacco use: Current smoker Problems Problem Type SNOMED Code ICD Code Onset Dates Problem Status W/U Status Risk Notes Problem Morbid obesity (disorder) (806398556) Morbid (severe) obesity due to excess calories (E66.01) Active confirmed Problem Tobacco user (900746900) Nicotine dependence, unspecified, uncomplicated (F17.200) Active confirmed Problem Bipolar II disorder (42346796) Bipolar II disorder (F31.81) Active confirmed Problem Borderline personality disorder (72025837) Borderline personality disorder (F60.3) Active confirmed Problem Hyperlipidemia (95262426) Hyperlipidemia (E78.5) 03/12/20 22 Active confirmed Problem Vitamin D deficiency (61159080) Vitamin D deficiency (E55.9) Active confirmed Problem Type 2 diabetes mellitus (66504286) Type 2 diabetes mellitus (E11.9) 03/12/20 22 Active confirmed Problem Posttraumatic stress disorder (17559566) Post traumatic stress disorder (PTSD) (F43.10) Active confirmed Problem Generalized anxiety disorder (21455253) Anxiety, generalized (F41.1) Active confirmed Problem Bladder dysfunction (74039924) Bladder dysfunction (N31.9) Active confirmed Problem Amphetamine use disorder, severe, in sustained 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) Active confirmed Encounters Encounter Location Date Provider Diagnosis [address] [address] 11/15/2023 Draren Arevalo Bipolar II disorder F31.81 ; Borderline personality disorder F60.3 ; Post traumatic stress disorder (PTSD) F43.10 and Anxiety, generalized F41.[address] [address] 12/06/2023 Darren Arevalo Bipolar II disorder F31.81 ; Borderline personality disorder F60.3 ; Post traumatic stress disorder (PTSD) F43.10 and Anxiety, generalized F41.[address] [address] 01/04/2024 Darren Arevalo Bipolar II disorder F31.81 ; Borderline personality disorder F60.3 ; Post traumatic stress disorder (PTSD) F43.10 and Anxiety, generalized F41.[address] [address] 02/01/2024 Darren Arevalo Bipolar II disorder F31.81 ; Borderline personality disorder F60.3 ; Post traumatic stress disorder (PTSD) F43.10 and Anxiety, generalized F41.[address] [address] 02/29/2024 Darren Arevalo Bipolar II disorder F31.81 ; Borderline personality disorder F60.3 ; Post traumatic stress disorder (PTSD) F43.10 and Anxiety, generalized F41.[address] [address] 03/28/2024 Darren Arevalo Bipolar II disorder F31.81 ; Borderline personality disorder F60.3 ; Post traumatic stress disorder (PTSD) F43.10 and Anxiety, generalized F41.[address] [address] 06/13/2024 Darren Arevalo Bipolar II disorder F31.81 ; Borderline personality disorder F60.3 ; Post traumatic stress disorder (PTSD) F43.10 and Anxiety, generalized F41.[address] [address] 07/11/2024 Darren Arevalo Bipolar II disorder F31.81 ; Borderline personality disorder F60.3 ; Post traumatic stress disorder (PTSD) F43.10 and Anxiety, generalized F41.[address] [address] 08/23/2023 Kelley Mtz [address] [address] 11/05/2023 Darren Arevalo Anxiety, generalized F41.1 ; Post traumatic stress disorder (PTSD) F43.10 and Bipolar II disorder F31.[address] [address] 02/02/2024 Darren Arevalo [address] [address] 06/02/2024 Darren Arevalo Bipolar II disorder F31.81 ; Anxiety, generalized F41.1 and Post traumatic stress disorder (PTSD) F43.10 Assessments Encounter Date Diagnosis (ICD Code) Assessment Notes Treatment Notes Treatment Clinical Notes Section Notes 11/05/2023 Anxiety, generalized (ICD-10 - F41.1) 11/15/2023 Bipolar II disorder (ICD-10 - F31.81) Client expressed worries that her oxcarbazepine may be contributing to recent dx of orthostatic hypotension. Did discuss client is on plethra of medications, many of which could be contributing. That discontinuing this medication would likely not solve this issue. However, client states that she does not feel it is working anyhow and wants to try something new. Client with hx of DM II and obesity. Has trialed several SGA in past including Abilify, Seroquel. Client not wanting to gain weight. Discussed best options to be Latuda, Caplyta, or Geodon. Client agreeable to trial of Latuda. No other changes to treatment plan at this time. 12/06/2023 Bipolar II disorder (ICD-10 - F31.81) Client feels Latuda has made positive changes in her depression but started late, one week ago. No treatment plan changes at this visit. 01/04/2024 Bipolar II disorder (ICD-10 - F31.81) Client overall doing quite well, but feels her mood is still lower than she would like and requests a trial of a higher dose of Latuda. Discussed option of raising dose to either 30 mg or 40 mg. Client would prefer 40 mg. No other treatment changes. 02/01/2024 Bipolar II disorder (ICD-10 - F31.81) Client agreeable to increase of Latuda to 60 mg and Prazosin to 3 mg to see if helpful for c/o irritability/moo d swings and nightmares. Client encouraged to limit stress and not overload schedule. 02/29/2024 Bipolar II disorder (ICD-10 - F31.81) Client doing well with medication changes from last visit. No medication changes today necessary. No refills needed as client wants month f/u and refills at last appt. 03/28/2024 Bipolar II disorder (ICD-10 - F31.81) Client describes her depression as more seasonal/atypica l in nature (eating more, not wanting to get out of bed, fatigue, not wanting to do things). Discussed increase to bupropion as trial to see if helpful. Discussed other lifestyle approaches to dealing with seasonal depression as well and coping strategies to deal with stress. No other treatment plan changes. 06/13/2024 Bipolar II disorder (ICD-10 - F31.81) Client with good response in regards to seasonal depression with increase in bupropion from 150 mg to 300 mg. Is recovering from PNA currently. Having fatigue from this but prior to PNA was having more motivation, energy and focus. No tx plan changes needed at this time. 07/11/2024 Bipolar II disorder (ICD-10 - F31.81) No changes to tx plan at this time - monitoring depression. Client to use positive coping mechanisms to crowd out destructive coping mechanisms. 06/02/2024 Bipolar II disorder (ICD-10 - F31.81) 06/02/2024 Anxiety, generalized (ICD-10 - F41.1) 07/11/2024 Borderline personality disorder (ICD-10 - F60.3) No changes to tx plan at this time - monitoring depression. Client to use positive coping mechanisms to crowd out destructive coping mechanisms. 06/13/2024 Borderline personality disorder (ICD-10 - F60.3) Client with good response in regards to seasonal depression with increase in bupropion from 150 mg to 300 mg. Is recovering from PNA currently. Having fatigue from this but prior to PNA was having more motivation, energy and focus. No tx plan changes needed at this time. 03/28/2024 Borderline personality disorder (ICD-10 - F60.3) Client describes her depression as more seasonal/atypica l in nature (eating more, not wanting to get out of bed, fatigue, not wanting to do things). Discussed increase to bupropion as trial to see if helpful. Discussed other lifestyle approaches to dealing with seasonal depression as well and coping strategies to deal with stress. No other treatment plan changes. 02/29/2024 Borderline personality disorder (ICD-10 - F60.3) Client doing well with medication changes from last visit. No medication changes today necessary. No refills needed as client wants month f/u and refills at last appt. 02/01/2024 Borderline personality disorder (ICD-10 - F60.3) Client agreeable to increase of Latuda to 60 mg and Prazosin to 3 mg to see if helpful for c/o irritability/moo d swings and nightmares. Client encouraged to limit stress and not overload schedule. 01/04/2024 Borderline personality disorder (ICD-10 - F60.3) Client overall doing quite well, but feels her mood is still lower than she would like and requests a trial of a higher dose of Latuda. Discussed option of raising dose to either 30 mg or 40 mg. Client would prefer 40 mg. No other treatment changes. 12/06/2023 Borderline personality disorder (ICD-10 - F60.3) Client feels Latuda has made positive changes in her depression but started late, one week ago. No treatment plan changes at this visit. 11/15/2023 Borderline personality disorder (ICD-10 - F60.3) Client expressed worries that her oxcarbazepine may be contributing to recent dx of orthostatic hypotension. Did discuss client is on plethra of medications, many of which could be contributing. That discontinuing this medication would likely not solve this issue. However, client states that she does not feel it is working anyhow and wants to try something new. Client with hx of DM II and obesity. Has trialed several SGA in past including Abilify, Seroquel. Client not wanting to gain weight. Discussed best options to be Latuda, Caplyta, or Geodon. Client agreeable to trial of Latuda. No other changes to treatment plan at this time. 11/05/2023 Post traumatic stress disorder (PTSD) (ICD-10 - F43.10) 11/05/2023 Bipolar II disorder (ICD-10 - F31.81) 11/15/2023 Post traumatic stress disorder (PTSD) (ICD-10 - F43.10) Client expressed worries that her oxcarbazepine may be contributing to recent dx of orthostatic hypotension. Did discuss client is on plethra of medications, many of which could be contributing. That discontinuing this medication would likely not solve this issue. However, client states that she does not feel it is working anyhow and wants to try something new. Client with hx of DM II and obesity. Has trialed several SGA in past including Abilify, Seroquel. Client not wanting to gain weight. Discussed best options to be Latuda, Caplyta, or Geodon. Client agreeable to trial of Latuda. No other changes to treatment plan at this time. 12/06/2023 Post traumatic stress disorder (PTSD) (ICD-10 - F43.10) Client feels Latuda has made positive changes in her depression but started late, one week ago. No treatment plan changes at this visit. 01/04/2024 Post traumatic stress disorder (PTSD) (ICD-10 - F43.10) Client overall doing quite well, but feels her mood is still lower than she would like and requests a trial of a higher dose of Latuda. Discussed option of raising dose to either 30 mg or 40 mg. Client would prefer 40 mg. No other treatment changes. 02/01/2024 Post traumatic stress disorder (PTSD) (ICD-10 - F43.10) Client agreeable to increase of Latuda to 60 mg and Prazosin to 3 mg to see if helpful for c/o irritability/moo d swings and nightmares. Client encouraged to limit stress and not overload schedule. 02/29/2024 Post traumatic stress disorder (PTSD) (ICD-10 - F43.10) Client doing well with medication changes from last visit. No medication changes today necessary. No refills needed as client wants month f/u and refills at last appt. 03/28/2024 Post traumatic stress disorder (PTSD) (ICD-10 - F43.10) Client describes her depression as more seasonal/atypica l in nature (eating more, not wanting to get out of bed, fatigue, not wanting to do things). Discussed increase to bupropion as trial to see if helpful. Discussed other lifestyle approaches to dealing with seasonal depression as well and coping strategies to deal with stress. No other treatment plan changes. 06/13/2024 Post traumatic stress disorder (PTSD) (ICD-10 - F43.10) Client with good response in regards to seasonal depression with increase in bupropion from 150 mg to 300 mg. Is recovering from PNA currently. Having fatigue from this but prior to PNA was having more motivation, energy and focus. No tx plan changes needed at this time. 07/11/2024 Post traumatic stress disorder (PTSD) (ICD-10 - F43.10) No changes to tx plan at this time - monitoring depression. Client to use positive coping mechanisms to crowd out destructive coping mechanisms. 06/02/2024 Post traumatic stress disorder (PTSD) (ICD-10 - F43.10) 07/11/2024 Anxiety, generalized (ICD-10 - F41.1) No changes to tx plan at this time - monitoring depression. Client to use positive coping mechanisms to crowd out destructive coping mechanisms. 06/13/2024 Anxiety, generalized (ICD-10 - F41.1) Client with good response in regards to seasonal depression with increase in bupropion from 150 mg to 300 mg. Is recovering from PNA currently. Having fatigue from this but prior to PNA was having more motivation, energy and focus. No tx plan changes needed at this time. 03/28/2024 Anxiety, generalized (ICD-10 - F41.1) Client describes her depression as more seasonal/atypica l in nature (eating more, not wanting to get out of bed, fatigue, not wanting to do things). Discussed increase to bupropion as trial to see if helpful. Discussed other lifestyle approaches to dealing with seasonal depression as well and coping strategies to deal with stress. No other treatment plan changes. 02/29/2024 Anxiety, generalized (ICD-10 - F41.1) Client doing well with medication changes from last visit. No medication changes today necessary. No refills needed as client wants month f/u and refills at last appt. 02/01/2024 Anxiety, generalized (ICD-10 - F41.1) Client agreeable to increase of Latuda to 60 mg and Prazosin to 3 mg to see if helpful for c/o irritability/moo d swings and nightmares. Client encouraged to limit stress and not overload schedule. 01/04/2024 Anxiety, generalized (ICD-10 - F41.1) Client overall doing quite well, but feels her mood is still lower than she would like and requests a trial of a higher dose of Latuda. Discussed option of raising dose to either 30 mg or 40 mg. Client would prefer 40 mg. No other treatment changes. 12/06/2023 Anxiety, generalized (ICD-10 - F41.1) Client feels Latuda has made positive changes in her depression but started late, one week ago. No treatment plan changes at this visit. 11/15/2023 Anxiety, generalized (ICD-10 - F41.1) Client expressed worries that her oxcarbazepine may be contributing to recent dx of orthostatic hypotension. Did discuss client is on plethra of medications, many of which could be contributing. That discontinuing this medication would likely not solve this issue. However, client states that she does not feel it is working anyhow and wants to try something new. Client with hx of DM II and obesity. Has trialed several SGA in past including Abilify, Seroquel. Client not wanting to gain weight. Discussed best options to be Latuda, Caplyta, or Geodon. Client agreeable to trial of Latuda. No other changes to treatment plan at this time. 11/15/2023 Other Discussed sleep hygiene and caffeine intake with encouragement to limit electronic devices an hour before bed and to limit caffeine after 3:00pm. Exercise benefits for mood and health discussed. Psychoeducation regarding psychiatric illness provided. Client was educated about risks and benefits of medication, alternatives to medication, off label uses of medication, suicidal ideation with SSRIs, self-administrat ion and compliance with medication along with how to safely store medication. Verbal informed consent obtained. Client agrees to return sooner if symptoms worsen or if suicidal or homicidal ideations occur. Client has the phone number to the 24-hour crisis line at [facility]. Questions addressed. Client verbalized understanding of all information and is agreeable to treatment plan. Client expressed worries that her oxcarbazepine may be contributing to recent dx of orthostatic hypotension. Did discuss client is on plethra of medications, many of which could be contributing. That discontinuing this medication would likely not solve this issue. However, client states that she does not feel it is working anyhow and wants to try something new. Client with hx of DM II and obesity. Has trialed several SGA in past including Abilify, Seroquel. Client not wanting to gain weight. Discussed best options to be Latuda, Caplyta, or Geodon. Client agreeable to trial of Latuda. No other changes to treatment plan at this time. 12/06/2023 Other Discussed sleep hygiene and caffeine intake with encouragement to limit electronic devices an hour before bed and to limit caffeine after 3:00pm. Exercise benefits for mood and health discussed. Psychoeducation regarding psychiatric illness provided. Client was educated about risks and benefits of medication, alternatives to medication, off label uses of medication, suicidal ideation with SSRIs, self-administrat ion and compliance with medication along with how to safely store medication. Verbal informed consent obtained. Client agrees to return sooner if symptoms worsen or if suicidal or homicidal ideations occur. Client has the phone number to the 24-hour crisis line at [facility]. Questions addressed. Client verbalized understanding of all information and is agreeable to treatment plan. Client feels Latuda has made positive changes in her depression but started late, one week ago. No treatment plan changes at this visit. 01/04/2024 Other Discussed sleep hygiene and caffeine intake with encouragement to limit electronic devices an hour before bed and to limit caffeine after 3:00pm. Exercise benefits for mood and health discussed. Psychoeducation regarding psychiatric illness provided. Client was educated about risks and benefits of medication, alternatives to medication, off label uses of medication, suicidal ideation with SSRIs, self-administrat ion and compliance with medication along with how to safely store medication. Verbal informed consent obtained. Client agrees to return sooner if symptoms worsen or if suicidal or homicidal ideations occur. Client has the phone number to the 24-hour crisis line at [facility]. Questions addressed. Client verbalized understanding of all information and is agreeable to treatment plan. Client overall doing quite well, but feels her mood is still lower than she would like and requests a trial of a higher dose of Latuda. Discussed option of raising dose to either 30 mg or 40 mg. Client would prefer 40 mg. No other treatment changes. 02/01/2024 Other Discussed sleep hygiene and caffeine intake with encouragement to limit electronic devices an hour before bed and to limit caffeine after 3:00pm. Exercise benefits for mood and health discussed. Psychoeducation regarding psychiatric illness provided. Client was educated about risks and benefits of medication, alternatives to medication, off label uses of medication, suicidal ideation with SSRIs, self-administrat ion and compliance with medication along with how to safely store medication. Verbal informed consent obtained. Client agrees to return sooner if symptoms worsen or if suicidal or homicidal ideations occur. Client has the phone number to the 24-hour crisis line at [facility]. Questions addressed. Client verbalized understanding of all information and is agreeable to treatment plan. Client agreeable to increase of Latuda to 60 mg and Prazosin to 3 mg to see if helpful for c/o irritability/moo d swings and nightmares. Client encouraged to limit stress and not overload schedule. 02/29/2024 Other Discussed sleep hygiene and caffeine intake with encouragement to limit electronic devices an hour before bed and to limit caffeine after 3:00pm. Exercise benefits for mood and health discussed. Psychoeducation regarding psychiatric illness provided. Client was educated about risks and benefits of medication, alternatives to medication, off label uses of medication, suicidal ideation with SSRIs, self-administrat ion and compliance with medication along with how to safely store medication. Verbal informed consent obtained. Client agrees to return sooner if symptoms worsen or if suicidal or homicidal ideations occur. Client has the phone number to the 24-hour crisis line at [facility]. Questions addressed. Client verbalized understanding of all information and is agreeable to treatment plan. Client doing well with medication changes from last visit. No medication changes today necessary. No refills needed as client wants month f/u and refills at last appt. 03/28/2024 Other Discussed sleep hygiene and caffeine intake with encouragement to limit electronic devices an hour before bed and to limit caffeine after 3:00pm. Exercise benefits for mood and health discussed. Psychoeducation regarding psychiatric illness provided. Client was educated about risks and benefits of medication, alternatives to medication, off label uses of medication, suicidal ideation with SSRIs, self-administrat ion and compliance with medication along with how to safely store medication. Verbal informed consent obtained. Client agrees to return sooner if symptoms worsen or if suicidal or homicidal ideations occur. Client has the phone number to the 24-hour crisis line at [facility]. Questions addressed. Client verbalized understanding of all information and is agreeable to treatment plan. Client describes her depression as more seasonal/atypica l in nature (eating more, not wanting to get out of bed, fatigue, not wanting to do things). Discussed increase to bupropion as trial to see if helpful. Discussed other lifestyle approaches to dealing with seasonal depression as well and coping strategies to deal with stress. No other treatment plan changes. 06/13/2024 Other Discussed sleep hygiene and caffeine intake with encouragement to limit electronic devices an hour before bed and to limit caffeine after 3:00pm. Exercise benefits for mood and health discussed. Psychoeducation regarding psychiatric illness provided. Client was educated about risks and benefits of medication, alternatives to medication, off label uses of medication, suicidal ideation with SSRIs, self-administrat ion and compliance with medication along with how to safely store medication. Verbal informed consent obtained. Client agrees to return sooner if symptoms worsen or if suicidal or homicidal ideations occur. Client has the phone number to the 24-hour crisis line at [facility]. Questions addressed. Client verbalized understanding of all information and is agreeable to treatment plan. Client with good response in regards to seasonal depression with increase in bupropion from 150 mg to 300 mg. Is recovering from PNA currently. Having fatigue from this but prior to PNA was having more motivation, energy and focus. No tx plan changes needed at this time. 07/11/2024 Other Discussed sleep hygiene and caffeine intake with encouragement to limit electronic devices an hour before bed and to limit caffeine after 3:00pm. Exercise benefits for mood and health discussed. Psychoeducation regarding psychiatric illness provided. Client was educated about risks and benefits of medication, alternatives to medication, off label uses of medication, suicidal ideation with SSRIs, self-administrat ion and compliance with medication along with how to safely store medication. Verbal informed consent obtained. Client agrees to return sooner if symptoms worsen or if suicidal or homicidal ideations occur. Client has the phone number to the 24-hour crisis line at [facility]. Questions addressed. Client verbalized understanding of all information and is agreeable to treatment plan. No changes to tx plan at this time - monitoring depression. Client to use positive coping mechanisms to crowd out destructive coping mechanisms. Plan Of Treatment Pending Test Test Name Order Date Urinalysis In-House, Routine 04/14/2022 Future Test Test Name Order Date Hemoglobin A1c* 02/03/2022 CBC With Differential/Platelet* 02/04/20 22 Lipid Panel* 02/03/2022 CMP 14 Comprehensive Metabolic Panel* Hemoglobin A1c CLIA Waived 03/17/2022 Next Appt Details Provider Name:Darren Salcedo , 08/08/2024 03:00:00 PM, [address] [facility], [place], [address], Insurance Providers Payer Name Payer Address Payer Phone Subscriber Number Group Number Insured Name Patient Relationship to Insured Coverage Start Date Coverage End Date MEDICARE PART A [address] [place] [address] [id number] Perla Palomo Self - patient is the insured 8 MEDICAID [address] [place] [address] [id number] Perla Palomo Self - patient is the insured 0 4 [employer] Better [employer] Medicare-M STEFANIE [address] [address] [place] [address] [id number] Perla Palomo Self - patient is the insured 2 2 Medical (General) History Medical History History ICD Code T2DM Asthma COPD hyperlipidemia Surgical History Surgery Date(Month/Year) cholecystectomy umbilical hernia repair ventral hernia repair Head and arms abcesss Hospitalization History Reason Date(Month/Year) [facility] Chest pain 08/2022 Possible stroke MH
== END 2024-07-17 11:41 | disposition home or self-care (01) ==
PROVIDERS: PCP Internal Medicine; Visit Provider Nurse Practitioner
DX: J18.9 Pneumonia, unspecified organism (principal)
CPT/HCPCS: 71046

== ENCOUNTER 2024-09-20 10:29 | Outpatient (CLI) | payer MEDICARE, SELFPAY ==
--- OUTSIDE RECORDS SUMMARY | 2024-09-20 11:06 | XMS_ITS | Clinical Summary ---
Author Organization [facility] Address [address] [place] [address] Care Team Providers Care Sawmill Supervisor Name Role Phone Tim Wagoner DO Primary Care Provider [phone] Allergies Active Allergy Reactions Criticality Noted Date [...] Influenza Vaccine (#1) 2024 02/14/2022, 2015 Insurance [facility] MEDICARE [place] MEDICARE [place] Care Teams Sawmill Supervisor Relationship Specialty Start Date End Date Tim Wagoner DO PCP - General 12/27/19
--- OUTSIDE RECORDS SUMMARY | 2024-09-20 11:06 | XMS_ITS | Referral Summary ---
Author Organization [facility] Address [address] [place] [address] Care Team Providers Care Center Customer Service Associate Name Role Phone Tim Wagoner DO Primary Care Provider [phone] Allergies Active Allergy Reactions Criticality Noted Date [...] Plan of Treatment Not on file Insurance [employer] MEDICARE [facility] Address: [address] [address] [facility] MEDICARE IDPA Care Teams Center Customer Service Associate Relationship Specialty Start Date End Date Tim Wagoner DO PCP - General 12/27/19
--- OUTSIDE RECORDS SUMMARY | 2024-09-20 11:06 | XMS_ITS | Clinical Summary ---
Author Organization [facility] Address [address] [place] [address] Care Team Providers Care Junior Web Developer Name Role Phone Unknown, Provider Primary Care Provider Unavaila ble Source Comments [facility],non-owned Affiliates and Associated Physician Practices is amultiple site organization consisting of ambulatory clinics and hospital sitesin [place], [place], [place] and [place]. This disclosure is being madepursuant to the Care Everywhere program and may not contain all information available regarding this patient. Last updated 18.[facility] [employer] Allergies Active Allergy Reactions Criticality Noted Date Comments Erythromycin Rash Medium 08/09/2020 Asenapine Shortness of Breath High 08/09/2020 Sulfa Drugs Rash Medium 08/09/2020 Medications * Be aware that medications may not be up to date on this document. Alwaysverify current medications with the patient. PRAZOSIN HCL PO Acti ve aspirin EC (ASPIR-LOW) 81 MG tablet Take 81 mg by mouth once daily Active Omeprazole 20 MG TBDD Active SIMVASTATIN PO Activ e buPROPion (WELLBUTRIN) 100 MG tablet Take 100 mg by mouth 2 times daily Active SERTRALINE HCL PO Ac tive OXcarbazepine (TRILEPTAL) 600 MG tablet Take 600 mg by mouth 2 times daily Active ALBUTEROL INIndications:Acu te bronchitis, unspecified organism Active insulin lispro (HUMALOG) 100 UNIT/ML cartridge Ac tive Active Problems No known active problems Social History Tobacco Use Types Packs/Day Years Used Date Smoking Tobacco: Never Assessed Comments Unknown Sex and Gender Information Value Date Recorded Sex Assigned at Not on file Legal Sex Female 9:02 AM CDT Gender Identity Not on file Sexual [...] VACCINE (1 - 2023-2 5 season) 2024 DEPRESSION SCREENING 05/03/2024 INFLUENZA VACCINE (Season Ended) 2025 02/15/20 22 HIB VACCINE Aged Out No longer eligi [...] studies requested for comparison. Please note: The [employer] [employer] has determined that screening mammograms [...] Narrative 11/05/2017 10:34 AM CDT MAMMO BILAT DIAGNOSTIC*[id number] WITH 3D TOMOSYNTHESIS AND CAD HISTORY: No [...] depending on clinical impression. Courtney García Chepe BOX ATTACHER-EARLY YEARS TEACHER MAMMO ORDERABLES Sharad R esult - Final from Last 3 Months or Most Recently Relevant to Health Maintenance Insurance [place] [id number] MEDICAID - [place] MED[place]ARE Care Teams Junior Web Developer Relationship Specialty Start Date End Date Unknown, Provider PCP - General 08/09/20
--- OUTSIDE RECORDS SUMMARY | 2024-09-20 11:06 | XMS_ITS | Clinical Summary ---
Author Organization [facility] Address [address] [place] [address] Phone Care Team Providers Care Seasonal Clerk Name Role Phone Tracy Izaguirre DIEUDONNE Primary Care Provider [phone] Allergies Active Allergy Reactions Criticality Noted Date Comments Asenapine Shortness of breath High 08/09/2020 Capsaicin Unknown 10/31/2021 Erythromycin Rash Medium 08/09/2020 Erythromycin Base Unknown 10/31/2021 Sulfa Antibiotics Rash Medium 08/09/2020 Medications albuterol HFA (Ventolin HFA) 108 (90 Base) MCG/ACT inhaler Ventolin HFA 90 mcg/actuation aerosol inhaler INHALE 2 PUFFS Q 4 H PRF SOB OR WHEEZING 2 Active aspirin (ST RADHA) 81 MG EC tablet Take 81 mg by mouth in the morning. Active budesonide-formo terol (Symbicort) 80-4.5 MCG/ACT inhaler 2 times daily 2 Active buPROPion XL (WELLBUTRIN XL) 150 MG 24 hr tablet Take 150 mg by mouth 1 (one) time each day in the morning 2 Active gabapentin (NEURONTIN) 300 MG capsule TAKE 1 CAPSULE BY MOUTH EVERY MORNING AND 2 CAPSULES EVERY EVENING 2 Active OneTouch Verio test strip CHECK BLOOD SUGAR EVERY DAY NEEDED 2 Active Icosapent Ethyl 1 g capsule Take 2 capsules by mouth in the morning and 2 capsules before bedtime. 2 Active NovoLOG FLEXPEN 100 UNIT/ML injection INJECT 30 UNITS UNDER SKIN THREE TIMES DAILY 2 Active Tresiba FlexTouch 200 UNIT/ML injection INJECT 30 UNITS UNDER SKIN EVERY DAY 2 Active BD Pen Needle Michelle 2nd Gen 32G X 4 MM misc USE TO INJECT FOUR TIMES DAILY 2 Active Lancets (OneTouch Delica Plus [id number]) misc USE TO CHECK BLOOD SUGAR EVERY DAY NEEDED. 2 Active linaCLOtide (Linzess) 145 MCG capsule prn Active lisinopril (PRINIVIL) 5 MG tablet Take 5 mg by mouth 1 (one) time each day 2 Active Omeprazole 20 MG Tablet Delayed Release Dispersible Take by mouth Acti ve OXcarbazepine (TRILEPTAL) 600 MG tablet Take 600 mg by mouth 1 (one) time each day in the evening 2 Active prazosin (MINIPRESS) 1 MG capsule Take 3 mg by mouth every night 2 Active Ozempic, 1 MG/DOSE, 4 MG/3ML solution pen-injector INJECT 1 MG UNDER SKIN EVERY WEEK 2 Active sertraline (ZOLOFT) 100 MG tablet Take 200 mg by mouth 1 (one) time each day in the morning 2 Active simvastatin (ZOCOR) 10 MG tablet 1 (one) time each day in the evening 2 Active [place]-3 Fatty Acids (Fish Oil) 1000 MG capsule delayed-release Take by mouth In addition to icosopent... Active Cholecalciferol (Vitamin D3) 50 MCG (2000 UT) chewable tablet Chew Acti ve loratadine (CLARITIN) 10 MG tablet Take 10 mg by mouth 1 (one) time each day Active Active Problems Problem Noted Date Diagnosed Date History of hepatitis C 04/15/2022 Obstructive sleep apnea syndrome 04/15/2022 Pyuria 04/15/2022 Persistent proteinuria 04/11/2022 Dyslipidemia 04/11/2022 Diabetes mellitus 12/21/2019 Immunizations Immunization Administration Dates Next Due Influenza TIV (IM) 02/14/2022 Family History Medical History Relation Comments Kidney disease Neg Hx Social History Tobacco Use Types Packs/Day Years Used Date Smoking Tobacco: Some Days Cigarettes Smokeless Tobacco: Never Tobacco Cessation:Ready to Q uit: Not Asked; Counseling Given: Not Answered Alcohol Use Standard Drinks/Week Comments Not Currently 0 (1 standard drink = 0.6 oz pur e alcohol) Comments Unknown Sex and Gender Information Value Date Recorded Sex Assigned at Not on file Legal Sex Female 10:24 AM [facility] Gender Identity Not on file Sexual Orientation Not on file Last Filed Vital Signs Vital Sign Reading Time Taken Comments Blood Pressure 122/70 04/15/2022 9:03 AM IMAGING TECHNOLOGIST Pulse 72 04/15/2022 9:03 AM IMAGING TECHNOLOGIST Temperature 36.1 C (97 F) 04/15/2022 9:03 AM IMAGING TECHNOLOGIST Respiratory Rate - - Oxygen Saturation - - Inhaled Oxygen Concentration - - Weight 125 kg (276 lb) 04/15/2022 9:03 AM IMAGING TECHNOLOGIST Height 165.1 cm (5' 5 ) 04/15/2022 9:03 AM IMAGING TECHNOLOGIST Body Mass Index 45.93 04/15/2022 9:03 AM IMAGING TECHNOLOGIST Plan of Treatment Health Maintenance Due Date Last Done Comments Diabetic Foot Exam 10/05/1983 Ophthalmology Exam 10/05/1983 Pneumococcal PPSV23 Highest Risk Adult (1 of 3 - PCV13) 1992 Influenza Vaccine (Season Ended) 2025 02/15/20 22 Insurance MEDICARE MEDICARE MEDICAID - [place] Care Teams Seasonal Clerk Relationship Specialty Start Date End Date Tracy Izaguirre FNP PCP - General Family Medicine 04/15/22
--- OUTSIDE RECORDS SUMMARY | 2024-09-20 11:06 | XMS_ITS | Continuity of Care Document ---
Author Organization [facility] Address [address] [place] [address] Phone Care Team Providers Care Brood Hatchery Manager Name Role Phone Sawyer Guaman MD Unavailable [...] Diagnoses Date Provider Providers Copied on Encounter [facility], [address] [place] [address], [id number] tel:[phone] [facility] No Information 1 Rowena Jacques. [address] [place] [address], [id number] , [place]. tel:[phone] Offic/outpt E&m Estab Mod-hi 2 [facility] [facility], [address] [place] [address], [id number] tel:[phone] [facility] [employer] [facility] Diabetes mellitusAsthm aArthritis, unspecified siteApnea, sleep NOSIrritable bowel syndromeHeart burn 1 Michael Wong. [address] [place] [address], [id number] , [place]. tel:[phone] Referring Provider: Minerva Loza, [address] [place] [address], [id number]. tel:[phone] [facility] [facility], [address] [place] [address], [id number] tel:[phone] [facility] [employer] [facility] Diabetes mellitusAsthm a 6 Michael Wong. [address] [place] [address], [id number] , [place]. tel:[phone] Referring Provider: Minerva Loza, [address] [place] [address], [id number]. tel:[phone] Offic/outpt E m Estab Low [facility] [employer], [address] [place] [address], [id number] tel:[phone] [facility] Diabetes mellitusAsthm aDiabetes mellitusAsthm aConstipation Nausea 3 Michael Wong. [address] [place] [address], [id number] , . tel:[phone] Referring Provider: Minerva Lux MD S, [address] [place] [address], [id number]. tel:[phone] Offic/outpt E m Estab Min [facility], [address] [place] [address], [id number] tel:[phone] [place] [facility] Chronic Fatty Liver,/non alcoholicChro micheal Fatty Liver,/non alcoholic Oct- 3 Michael Wong. [address] [place] [address], [id number] , [place]. tel:[phone] Referring Provider: Minerva Loza, [address] [place] [address], [id number]. tel:[phone] Offic Cons New/estab Mod-4) [facility], [address] [place] [address], [id number] tel:[phone] [facility] Abnormal liver testsAbnormal liver tests 3 Michael Wong. [address] [place] [address], [id number] , [place]. tel:[phone] Referring Provider: Minerva Loza, [address] [place] [address], [id number]. tel:[phone] Family History Family Member Type Diagnosis Age At Onset No Information Payers Payer name Insurance type Covered republican ID Authoriza tion(s) [facility] PPO [id number] Medicare [place] [id number] Social History Type Description Quantity Date Captured [...]
[2024-09-20 13:28] LABS: Alanine Aminotransferase 21 U/L (6-35); Albumin Level 4.4 g/dL (3.5-5.1); Alkaline Phosphatase 53 U/L (38-126); Anion Gap 10 mmol/L (4-12); Aspartate Amino Transferase 38 U/L (14-36); Bilirubin,Total 0.5 mg/dL (0.2-1.3); Blood Urea Nitrogen 23 mg/dL (7-17); Calcium 9.2 mg/dL (8.4-10.2); Carbon Dioxide 23 mmol/L (22-30); Chloride 106 mmol/L (98-107); Estimated Glomerular Filt Rate 47; Glucose 170 mg/dL (65-110); Magnesium 2.3 mg/dL (1.6-2.3); Potassium 4.4 mmol/L (3.4-5.0); Sodium 139 mmol/L (137-145)
== END 2024-09-20 10:30 | disposition home or self-care (01) ==
LOC: ANHGOSHLAB 10:31
PROVIDERS: PCP Internal Medicine; Visit Provider Nurse Practitioner
DX: E83.42 Hypomagnesemia (principal); I10 Essential (primary) hypertension; R80.1 Persistent proteinuria, unspecified; R32 Unspecified urinary incontinence; Z13.29 Encounter for screening for other suspected endocrine disorder
CPT/HCPCS: 36415; 80053; 83735

== ENCOUNTER 2024-09-30 11:01 | Outpatient (CLI) | payer MEDICARE, SELFPAY ==
--- NOTE | ~2024-09-30 | CT_ITS ---
CT Scan of the Chest without Contrast: Clinical Indication: Pulmonary nodule Technique: Contiguous sections were acquired throughout the chest without intravenous contrast. Dose reduction technique was used on this scan by utilizing automated exposure control and iterative recon struction technique. The dose-length product (DLP) was 713.58 mGy-cm. COMPARISON: 10/14/2023 Findings: There is no evidence of any significant mediastinal, hilar or axillary lymphadenopathy. The mediastin al soft tissues appear normal. Minimal pericardial fluid present. No pleural effusions. The lungs are clear. No pulmonary nodules or infiltrates are noted. Images through the upper abdomen reveal no abnormalities. Impression: Minimal pericardial fluid. Clear lungs. Reviewed, dictated and finalized at location . Impression: Minimal pericardial fluid. Clear lungs.
--- OUTSIDE RECORDS SUMMARY | 2024-09-30 11:06 | XMS_ITS | Clinical Summary ---
Author Organization [facility] Address [address] [place] [address] Care Team Providers Care Bacteriologist Dairy Name Role Phone Tim Wagoner DO Primary Care Provider [phone] Allergies Active Allergy Reactions Criticality Noted Date [...] 10:01 AM CDT Height 165.1 cm (5' 5) 10/31/2021 10:0 1 AM CDT Body Mass [...] season) 2024 04/14/2021, 09/05/2020, 08/15/2020 Influenza Vaccine (Season Ended) 2025 02/15/20, 04/23/2016 Insurance [facility] MEDICARE ID[place] MEDICARE IDME Care Teams Bacteriologist Dairy Relationship Specialty Start Date End Date Tim Wagoner DO PCP - General 12/27/19
--- OUTSIDE RECORDS SUMMARY | 2024-09-30 11:06 | XMS_ITS | Clinical Summary ---
Author Organization [facility] Address [address] [place] [address] Care Team Providers Care Business Development Executive Name Role Phone Unknown, Provider Primary Care Provider Unavaila ble Source Comments [facility],non-owned Affiliates and Associated Physician Practices is amultiple site organization consisting of ambulatory clinics and hospital sitesin [place], [place], [place] and [place]. This disclosure is being madepursuant to the Care Everywhere program and may not contain all information available regarding this patient. Last updated 18.[facility] MD [employer] Allergies Active Allergy Reactions Criticality Noted Date [...] 5:37 PM CDT Height 165.1 cm (5' 5) 08/09/2020 5:37 PM CDT Body Mass Index [...] studies requested for comparison. Please note: The [place] [employer] has determined that screening mammograms [...] Narrative 11/05/2017 10:34 AM CDT MAMMO BILAT DIAGNOSTIC*[id number] WITH 3D TOMOSYNTHESIS AND CAD HISTORY: No [...] depending on clinical impression. Courtney García Chepe WORK MEASUREMENT ENGINEER-SCALLOP DREDGER MAMMO ORDERABLES Sharad R esult - Final from Last 3 Months or Most Recently Relevant to Health Maintenance Insurance [facility] [id number] MEDICAID - [place] MED[place] Care Teams Business Development Executive Relationship Specialty Start Date End Date Unknown, Provider PCP - General 08/09/20
--- OUTSIDE RECORDS SUMMARY | 2024-09-30 11:06 | XMS_ITS | Referral Summary ---
Author Organization [facility] Address [address] [place] [address] Care Team Providers Care Gameroom Technician Name Role Phone Tim Wagoner DO Primary Care Provider [phone] Allergies Active Allergy Reactions Criticality Noted Date [...] Plan of Treatment Not on file Insurance [employer] MEDICARE [facility] Address: [address] [address] [facility] MEDICARE IDPA Care Teams Gameroom Technician Relationship Specialty Start Date End Date Tim Wagoner DO PCP - General 12/27/19
--- OUTSIDE RECORDS SUMMARY | 2024-09-30 11:06 | XMS_ITS | Clinical Summary ---
Author Organization [facility] Address [address] [place] [address] Phone Care Team Providers Care Oil Sales And Service Rep Name Role Phone Tracy Izaguirre DIEUDONNE Primary Care Provider [phone] Allergies Active Allergy Reactions Criticality Noted Date [...] DAILY 2 Active Lancets (OneTouch Delica Plus [id number]) misc USE TO CHECK BLOOD SUGAR EVERY [...] each day in the evening 2 Active Exira-3 Fatty Acids (Fish Oil) 1000 MG capsule [...] on file Legal Sex Female 10:24 AM [facility] Gender Identity Not on file Sexual Orientation Not on file Last Filed Vital Signs Vital Sign Reading Time Taken Comments Blood Pressure 122/70 04/15/2022 9:03 AM LEAF COVERER Pulse 72 04/15/2022 9:03 AM LEAF COVERER Temperature 36.1 C (97 F) 04/15/2022 9:03 AM LEAF COVERER Respiratory Rate - - Oxygen Saturation - - Inhaled Oxygen Concentration - - Weight 125 kg (276 lb) 04/15/2022 9:03 AM LEAF COVERER Height 165.1 cm (5' 5) 04/15/2022 9:03 AM LEAF COVERER Body Mass Index 45.93 04/15/2022 9:03 AM LEAF COVERER Plan of Treatment Health Maintenance Due Date Last Done Comments Diabetic Foot Exam 10/05/1983 Ophthalmology Exam 10/05/1983 Pneumococcal PPSV23 Highest Risk Adult (1 of 3 - PCV13) 1992 Influenza Vaccine (Season Ended) 2025 02/15/20 22 Insurance MEDICARE MEDICARE MEDICAID - [place] Care Teams Oil Sales And Service Rep Relationship Specialty Start Date End Date Tracy Izaguirre FNP PCP - General Family Medicine 04/15/22
--- OUTSIDE RECORDS SUMMARY | 2024-09-30 11:07 | XMS_ITS | Patient Health Record ---
Author Organization [facility] Address [address] [place] [address] Care Team Providers Care Vine Pruner Name Role Phone Darren Arevalo Primary Care Provider [phone] Allergies Allergen (clinical drug ingredient) Drug/Non Drug [...] Duration) Notes Start Date End Date Status Lurasidone HCl 60 MG 1 tablet in the evening with food Orally Once a day for 30 days Active buPROPion HCl ER (XL) 300 MG 1 tablet in the morning Orally Once a day for 30 days Active Baclofen 10 MG 1 tablet as needed Orally Twice a day Active Amoxicillin-Pot Clavulanate 875-125 MG 1 tablet Orally every 12 hrs for 10 days Unknown Farxiga 5 MG 1 tablet Orally Once a day Active Vascepa 1 GM 2 capsules with meal s Orally Twice a day for 30 day(s) Active Gabapentin 300 MG 1 capsule every morning and 3 capsules every evening Orally as directed. for 7 days Active Ozempic (1 MG/DOSE) 4 MG/3ML as directed Subcutaneous Not-Taking Sertraline HCl 100 MG 2 tablets every morning Orally Once a day for 30 days Active Mirena Active Prazosin HCl 1 MG TAKE 3 CAPSULES BY MOUTH DAILY AT BEDTIME for 30 days Active Loratadine 10 MG 1 tablet Orally Once a day for 30 day(s) Active Multi Vitamin - 1 tablet Orally Once a day for 30 day(s) Active Nystatin 403912 UNIT/GM 1 application Externally Twice a day Active Omeprazole 20 MG 1 capsule 30 minutes before morning meal Orally Once a day for 30 day(s) Active FreeStyle Regina 2 Sensor Systm Unknown Tresiba FlexTouch 200 UNIT/ML 25 units Subcutaneous once daily for 30 days 25U Unknown Glucagon 1 MG/0.2ML as directed Subcutaneous Active Lancets - as directed three times daily for 33 days 02/11/2022 Unknown Simvastatin 10 MG TAKE 1 TABLET BY MOUTH EVERY DAY IN THE EVENING for 30 Unknown Ibuprofen 200 MG 1 tablet with food o r milk as needed Orally Three times a day Unknown NovoLIN R FlexPen 100 UNIT/ML as directed Injection 20U three daily Unknown Albuterol Sulfate 2.5 MG/0.5ML as directed Inhalation Unknown Fish Oil 1000 MG 1 capsule Orally Onc e a day for 30 day(s) Not-Taking FreeStyle Regina 2 Sensor - as directed for 14 days 01/27/2022 Unknown Lisinopril 5 MG 1 tablet Orally Once a day for 30 days Active Insulin Pen Needle 32G X 4 MM as directed for 30 days Unknown Albuterol Sulfate 108 (90 Base) MCG/ACT 1 puff as needed Inhalation every 4 hrs Active Naltrexone HCl 50 MG 0.5 - 1 tablet Oral ly Once a day for 30 days 08/08/2024 Active Aspirin Low Dose 81 MG 1 tablet Orally Once a day for 30 day(s) Active Symbicort 80-4.5 MCG/ACT 2 puffs Inhalation Once a day Active Social History Tobacco Use: Social History [...] Status Risk Notes Problem Morbid obesity (disorder) (595913278) Morbid (severe) obesity due to excess calories (E66.01) Active confirmed Problem Tobacco user (095719769) Nicotine dependence, unspecified, uncomplicated (F17.200) Active confirmed Problem Bipolar II disorder (63317172) Bipolar II disorder (F31.81) Active confirmed Problem Borderline personality disorder (95725553) Borderline personality disorder (F60.3) Active confirmed Problem Hyperlipidemia (40178423) Hyperlipidemia (E78.5) 03/12/20 22 Active confirmed Problem Vitamin D deficiency (01541735) Vitamin D deficiency (E55.9) Active confirmed Problem Type 2 diabetes mellitus (94566810) Type 2 diabetes mellitus (E11.9) 03/12/20 22 Active confirmed Problem Posttraumatic stress disorder (25866628) Post traumatic stress disorder (PTSD) (F43.10) Active confirmed Problem Generalized anxiety disorder (03011974) Anxiety, generalized (F41.1) Active confirmed Problem Bladder dysfunction (85169196) Bladder dysfunction (N31.9) Active confirmed Problem Amphetamine use disorder, severe, in sustained 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) Active confirmed Encounters Encounter Location Date Provider Diagnosis [address] [address] 11/15/2023 Darren Arevalo Bipolar II disorder F31.81 ; Borderline personality disorder F60.3 ; Post traumatic stress disorder (PTSD) F43.10 and Anxiety, generalized F41.[address] [address] 12/06/2023 Darren Arevalo Bipolar II disorder F31.81 ; Borderline personality disorder F60.3 ; Post traumatic stress disorder (PTSD) F43.10 and Anxiety, generalized F41.[address] [address] 01/04/2024 Darren Arevalo Bipolar II disorder F31.81 ; Borderline personality disorder F60.3 ; Post traumatic stress disorder (PTSD) F43.10 and Anxiety, generalized F41.[address] [address] 02/01/2024 Darren Arevalo Bipolar II disorder F31.81 ; Borderline personality disorder F60.3 ; Post traumatic stress disorder (PTSD) F43.10 and Anxiety, generalized F41.[address] [address] 02/29/2024 Darren Arevalo Bipolar II disorder F31.81 ; Borderline personality disorder F60.3 ; Post traumatic stress disorder (PTSD) F43.10 and Anxiety, generalized F41.[address] [place] [address] 03/28/2024 Darren Arevalo Bipolar II disorder F31.81 ; Borderline personality disorder F60.3 ; Post traumatic stress disorder (PTSD) F43.10 and Anxiety, generalized F41.[address] [place] [address] 06/13/2024 Darren Arevalo Bipolar II disorder F31.81 ; Borderline personality disorder F60.3 ; Post traumatic stress disorder (PTSD) F43.10 and Anxiety, generalized F41.[address] [place] [address] 07/11/2024 Darren Arevalo Bipolar II disorder F31.81 ; Borderline personality disorder F60.3 ; Post traumatic stress disorder (PTSD) F43.10 and Anxiety, generalized F41.[address] [place] [address] 08/08/2024 Darren Arevalo Bipolar II disorder F31.81 ; Borderline personality disorder F60.3 ; Post traumatic stress disorder (PTSD) F43.10 and Anxiety, generalized F41.[address] [place] [address] 09/04/2024 Darren Arevalo Bipolar II disorder F31.81 ; Borderline personality disorder F60.3 ; Post traumatic stress disorder (PTSD) F43.10 and Anxiety, generalized F41.[address] [place] [address] 11/05/2023 Darren Arevalo Anxiety, generalized F41.1 ; Post traumatic stress disorder (PTSD) F43.10 and Bipolar II disorder F31.[address] [place] [address] 02/02/2024 Darren Arevalo [address] [place] [address] 06/02/2024 Darren Arevalo Bipolar II disorder F31.81 [...] mechanisms to crowd out destructive coping mechanisms. 08/08/2024 Bipolar II disorder (ICD-10 - F31.81) Client with increase in self harm (cutting) thoughts due to stress as well as thoughts of using alcohol for coping purposes (but does not want to drink alcohol). Discussed trial of naltrexone. Not on opioids and discussed risk versus benefit of medication. Client is agreeable to trial. No changes to tx plan aside from this. Encouraged exercise and other forms of self care. 09/04/2024 Bipolar II disorder (ICD-10 - F31.81) Client doing well, no treatment plan changes needed at this time. 06/02/2024 Bipolar II disorder (ICD-10 - F31.81) 06/02/2024 Anxiety, generalized (ICD-10 - F41.1) 09/04/2024 Borderline personality disorder (ICD-10 - F60.3) Client doing well, no treatment plan changes needed at this time. 08/08/2024 Borderline personality disorder (ICD-10 - F60.3) Client with increase in self harm (cutting) thoughts due to stress as well as thoughts of using alcohol for coping purposes (but does not want to drink alcohol). Discussed trial of naltrexone. Not on opioids and discussed risk versus benefit of medication. Client is agreeable to trial. No changes to tx plan aside from this. Encouraged exercise and other forms of self care. 07/11/2024 Borderline personality disorder (ICD-10 - F60.3) [...] mechanisms to crowd out destructive coping mechanisms. 08/08/2024 Post traumatic stress disorder (PTSD) (ICD-10 - F43.10) Client with increase in self harm (cutting) thoughts due to stress as well as thoughts of using alcohol for coping purposes (but does not want to drink alcohol). Discussed trial of naltrexone. Not on opioids and discussed risk versus benefit of medication. Client is agreeable to trial. No changes to tx plan aside from this. Encouraged exercise and other forms of self care. 09/04/2024 Post traumatic stress disorder (PTSD) (ICD-10 - F43.10) Client doing well, no treatment plan changes needed at this time. 06/02/2024 Post traumatic stress disorder (PTSD) (ICD-10 - F43.10) 09/04/2024 Anxiety, generalized (ICD-10 - F41.1) Client doing well, no treatment plan changes needed at this time. 08/08/2024 Anxiety, generalized (ICD-10 - F41.1) Client with increase in self harm (cutting) thoughts due to stress as well as thoughts of using alcohol for coping purposes (but does not want to drink alcohol). Discussed trial of naltrexone. Not on opioids and discussed risk versus benefit of medication. Client is agreeable to trial. No changes to tx plan aside from this. Encouraged exercise and other forms of self care. 07/11/2024 Anxiety, generalized (ICD-10 - F41.1) No [...] number to the 24-hour crisis line at [facility]. Questions addressed. Client verbalized understanding of all [...] number to the 24-hour crisis line at [facility]. Questions addressed. Client verbalized understanding of all [...] number to the 24-hour crisis line at [facility]. Questions addressed. Client verbalized understanding of all [...] number to the 24-hour crisis line at [facility]. Questions addressed. Client verbalized understanding of all [...] number to the 24-hour crisis line at [facility]. Questions addressed. Client verbalized understanding of all [...] number to the 24-hour crisis line at [facility]. Questions addressed. Client verbalized understanding of all [...] number to the 24-hour crisis line at [facility]. Questions addressed. Client verbalized understanding of all [...] number to the 24-hour crisis line at [facility]. Questions addressed. Client verbalized understanding of all information and is agreeable to treatment plan. No changes to tx plan at this time - monitoring depression. Client to use positive coping mechanisms to crowd out destructive coping mechanisms. 08/08/2024 Other Discussed sleep hygiene and caffeine intake [...] number to the 24-hour crisis line at [facility]. Questions addressed. Client verbalized understanding of all information and is agreeable to treatment plan. Client with increase in self harm (cutting) thoughts due to stress as well as thoughts of using alcohol for coping purposes (but does not want to drink alcohol). Discussed trial of naltrexone. Not on opioids and discussed risk versus benefit of medication. Client is agreeable to trial. No changes to tx plan aside from this. Encouraged exercise and other forms of self care. 09/04/2024 Other Discussed sleep hygiene and caffeine intake [...] number to the 24-hour crisis line at [facility]. Questions addressed. Client verbalized understanding of all information and is agreeable to treatment plan. Client doing well, no treatment plan changes needed at this time. Plan Of Treatment Pending Test Test Name Order Date Urinalysis In-House, Routine 04/14/2022 Future Test Test Name Order Date Hemoglobin A1c* 02/03/2022 CBC With Differential/Platelet* 02/04/20 22 Lipid Panel* 02/03/2022 CMP 14 Comprehensive Metabolic Panel* Hemoglobin A1c CLIA Waived 03/17/2022 Next Appt Details Provider Name:Darren Salcedo , 10/02/2024 03:00:00 PM, [address] [facility] , [place], [address], Insurance Providers Payer Name Payer Address Payer Phone Subscriber Number Group Number Insured Name Patient Relationship to Insured Coverage Start Date Coverage End Date MEDICARE PART A [address] [place] [address] [id number] Perla Palomo Self - patient is the insured 8 MEDICAID [address] [place] [address] [id number] Perla Palomo Self - patient is the insured 0 4 [employer] Medicare-[facility] [address] [address] [place] [address] [id number] Perla Palomo Self - patient is the insured 2 2 Medical (General) History Medical History History ICD Code T2DM Asthma COPD hyperlipidemia Surgical History Surgery Date(Month/Year) cholecystectomy umbilical hernia repair ventral hernia repair Head and arms abcesss Hospitalization History Reason Date(Month/Year) [facility] Chest pain 08/2022 Possible stroke MH
== END 2024-09-30 11:02 | disposition home or self-care (01) ==
PROVIDERS: PCP Internal Medicine; Visit Provider Nurse Practitioner
DX: R91.1 Solitary pulmonary nodule (principal)
CPT/HCPCS: 71250

== ENCOUNTER 2024-10-17 11:08 | Outpatient (CLI) | payer MEDICARE, MEDICAID, SELFPAY ==
--- NOTE | ~2024-10-17 | MMUS_ITS ---
EXAMINATION: MM diagnostic [facility] BI w deloris, US breast BI complete HISTORY: Nipple discharge TECHNIQUE: Additional 3-D tomosynthesis images of the breasts were performed and synthetic 2-D images were generated. CAD analysis was submitted and interpreted. High resolution bilateral complete breas t ultrasound was performed. COMPARISON: No prior studies for comparison. BREAST PARENCHYMAL COMPOSITION: Not Dense: The breasts are almost entirely fatty. FINDINGS: MAMMOGRAPHIC FINDINGS: There are no suspicious masses, calcifications or architectural distortion in either breast to sugges t malignancy. ULTRASOUND: Complete US of all 4 quadrants of the breast/s and retroareolar region was reviewed. Normal heterogen eous echotexture without focal solid or cystic mass. IMPRESSION: 1. No evidence for malignancy in either breast. 2. Routine yearly screening mammogram and regular clinical breast examination are recommended. BI-RADS Category 1: Negative Reviewed, dictated and finalized at location A. IMPRESSION: 1. No evidence for malignancy in either breast. 2. Routine yearly screening mammogram and regular clinical breast examination a re recommended. BI-RADS Category 1: Negative
--- OUTSIDE RECORDS SUMMARY | 2024-10-17 12:14 | XMS_ITS | Clinical Summary ---
Author Organization [facility] Address [address] [place] [address] Care Team Providers Care Armature And Rotor Winder Name Role Phone Unknown, Provider Primary Care Provider Unavaila ble Source Comments [facility],non-owned Affiliates and Associated Physician Practices is amultiple site organization consisting of ambulatory clinics and hospital sitesin [place], [place], [place] and [place]. This disclosure is being madepursuant to the Care Everywhere program and may not contain all information available regarding this patient. Last updated 18.[facility] [employer] Allergies Active Allergy Reactions Criticality Noted Date [...] SCREENING 1975 MEDICARE AWV 12 MONTHS 1975 HIV SCREENING 1988 HEPATITIS C SCREENING 09/30/1991 DTAP/TDAP/TD VACCINES (1 - Tdap) 1992 HEPATITIS B VACCINE (1 of 3 - 19+ 3-dose series) 1992 PAP SMEAR 1994 MAMMOGRAM 11/06/2019 11/05/2017 SCREENING FOR DIABETES 08/09/2020 [...] studies requested for comparison. Please note: The [employer] has determined that screening mammograms [...] Narrative 11/05/2017 10:34 AM CDT MAMMO BILAT DIAGNOSTIC*[id number] WITH 3D TOMOSYNTHESIS AND CAD HISTORY: No [...] depending on clinical impression. Courtney García Chepe OIL BURNER-BOARD ATTENDANT MAMMO ORDERABLES Sharad R esult - Final from Last 3 Months or Most Recently Relevant to Health Maintenance Insurance [facility] [id number] MEDICAID - [place] MEDICARE Care Teams Armature And Rotor Winder Relationship Specialty Start Date End Date Unknown, Provider PCP - General 08/09/20
--- OUTSIDE RECORDS SUMMARY | 2024-10-17 12:14 | XMS_ITS | Continuity of Care Document ---
Author Organization [facility] Address [address] [place] [address] Phone Care Team Providers Care Belt Knife Feeder Name Role Phone Sawyer Guaman MD Unavailable [...] Diagnoses Date Provider Providers Copied on Encounter [facility], [address] [place] [address], [id number] tel:[phone] [facility] No Information 1 Rowena Jacques. [address] [place] [address], [id number] , [place]. tel:[phone] Offic/outpt E&m Estab Mod-hi 2 [facility] Hone and [employer], [address] [place] [address], [id number] tel:[phone] [facility] [employer] Diabetes mellitusAsthm aArthritis, unspecified siteApnea, sleep NOSIrritable bowel syndromeHeart burn 1 Michael Wong. [address] [place] [address], [id number] , [place]. tel:[phone] Referring Provider: Minerva Loza, [address] [place] [address], [id number]. tel:[phone] [facility] Frockad[facility], [address] [place] [address], [id number] tel:[phone] [facility] Frockadvisor Asso [employer] Diabetes mellitusAsthm a 6 Michael Wong. [address] [place] [address], [id number] , [place]. tel:[phone] Referring Provider: Minerva Loza, [address] [place] [address], [id number]. tel:[phone] Offic/outpt E m Estab Low [facility] [employer], [address] [place] [address], [id number] tel:[phone] [facility] Diabetes mellitusAsthm aDiabetes mellitusAsthm aConstipation Nausea 3 Michael Wong. [address] [place] [address], [id number] , . tel:[phone] Referring Provider: Minerva Lux MD S, [address] [place] [address], [id number]. tel:[phone] Offic/outpt E m Estab Min [facility], [address] [place] [address], [id number] tel:[phone] [facility] GastroenterSOPATec [facility]so [facility] Chronic Fatty Liver,/non alcoholicChro micheal Fatty Liver,/non alcoholic Oct- 3 Michael Wong. [address] [place] [address], [id number] , [place]. tel:[phone] Referring Provider: Minerva Loza, [address] [place] [address], [id number]. tel:[phone] Offic Cons New/estab Mod-4) [facility], [address] [place] [address], [id number] tel:[phone] [facility] Abnormal liver testsAbnormal liver tests 3 Michael Wong. [address] [place] [address], [id number] , [place]. tel:[phone] Referring Provider: Minerva Loza, [address] [place] [address], [id number]. tel:[phone] Family History Family Member Type Diagnosis Age At Onset No Information Payers Payer name Insurance type Covered green party ID Authoriza tion(s) [facility] PPO [id number] Medicare [place] [id number] Social History Type Description Quantity Date Captured [...]
--- OUTSIDE RECORDS SUMMARY | 2024-10-17 12:14 | XMS_ITS | Clinical Summary ---
Author Organization [facility] Address [address] [place] [address] Care Team Providers Care Topographical Surveyor Name Role Phone Tim Wagoner DO Primary Care Provider [phone] Allergies Active Allergy Reactions Criticality Noted Date [...] Vaccine (Season Ended) 2025 02/15/20, 04/23/2016 Insurance [facility] MEDICARE [facility] Address: [address] [address] [place] [address] IDMD MEDICARE IDMD Care Teams Topographical Surveyor Relationship Specialty Start Date End Date Tim Wagoner DO PCP - General 12/27/19
--- OUTSIDE RECORDS SUMMARY | 2024-10-17 12:14 | XMS_ITS | Referral Summary ---
Author Organization [facility] Address [address] [place] [address] Care Team Providers Care General Repairer Name Role Phone Tim Wagoner DO Primary Care Provider [phone] Allergies Active Allergy Reactions Criticality Noted Date [...] Plan of Treatment Not on file Insurance [employer] MEDICARE [facility] Address: [address] [address] [facility] MEDICARE ID[place] Care Teams General Repairer Relationship Specialty Start Date End Date Tim Wagoner DO PCP - General 12/27/19
--- OUTSIDE RECORDS SUMMARY | 2024-10-17 12:14 | XMS_ITS | Clinical Summary ---
Author Organization [facility] Debbie enamorado Address [address] [place] [phone] Phone Care Team Providers Care Manager Process Name Role Phone Tracy Izaguirre DIEUDONNE Primary Care Provider [phone] Allergies Active Allergy Reactions Criticality Noted Date [...] DAILY 2 Active Lancets (OneTouch Delica Plus [id number]) misc USE TO CHECK BLOOD SUGAR EVERY [...] each day in the evening 2 Active [place]-3 Fatty Acids (Fish Oil) 1000 MG capsule [...] on file Legal Sex Female 10:24 AM [facility] Gender Identity Not on file Sexual Orientation Not on file Last Filed Vital Signs Vital Sign Reading Time Taken Comments Blood Pressure 122/70 04/15/2022 9:03 AM AIR CARGO AGENT Pulse 72 04/15/2022 9:03 AM AIR CARGO AGENT Temperature 36.1 C (97 F) 04/15/2022 9:03 AM AIR CARGO AGENT Respiratory Rate - - Oxygen Saturation - - Inhaled Oxygen Concentration - - Weight 125 kg (276 lb) 04/15/2022 9:03 AM AIR CARGO AGENT Height 165.1 cm (5' 5) 04/15/2022 9:03 AM AIR CARGO AGENT Body Mass Index 45.93 04/15/2022 9:03 AM AIR CARGO AGENT Plan of Treatment Health Maintenance Due Date Last Done Comments Pneumococcal PPSV23 Highest Risk Adult (1 of 3 - PCV13) 1992 Influenza Vaccine (Season Ended) 2025 02/15/20 22 Insurance MEDICARE MEDICARE MEDICAID - [place] Care Teams Manager Process Relationship Specialty Start Date End Date Tracy Izaguirre FNP PCP - General Family Medicine 04/15/22
--- OUTSIDE RECORDS SUMMARY | 2024-10-17 12:15 | XMS_ITS | Patient Health Record ---
Author Organization [facility] Address [address] [place] [address] Care Team Providers Care Mobile Sales Expert Name Role Phone Darren Arevalo Primary Care Provider Allergies Allergen (clinical drug ingredient) Drug/Non Drug [...] a day for 30 day(s) Active Nystatin 151581 UNIT/GM 1 application Externally Twice a day [...] Status Risk Notes Problem Morbid obesity (disorder) (245898861) Morbid (severe) obesity due to excess calories (E66.01) Active confirmed Problem Tobacco user (146556728) Nicotine dependence, unspecified, uncomplicated (F17.200) Active confirmed Problem Bipolar II disorder (77515192) Bipolar II disorder (F31.81) Active confirmed Problem Borderline personality disorder (62797976) Borderline personality disorder (F60.3) Active confirmed Problem Hyperlipidemia (21267405) Hyperlipidemia (E78.5) 03/12/20 22 Active confirmed Problem Vitamin D deficiency (25373186) Vitamin D deficiency (E55.9) Active confirmed Problem Type 2 diabetes mellitus (71397140) Type 2 diabetes mellitus (E11.9) 03/12/20 22 Active confirmed Problem Posttraumatic stress disorder (22785316) Post traumatic stress disorder (PTSD) (F43.10) Active confirmed Problem Generalized anxiety disorder (54733630) Anxiety, generalized (F41.1) Active confirmed Problem Bladder dysfunction (74713200) Bladder dysfunction (N31.9) Active confirmed Problem Amphetamine use disorder, severe, in sustained 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) Active confirmed Encounters Encounter Location Date Provider Diagnosis [address] [address] 11/15/2023 Darren Arevalo Bipolar II disorder F31.81 ; Borderline personality disorder F60.3 ; Post traumatic stress disorder (PTSD) F43.10 and Anxiety, generalized F41.[address] [address] 12/06/2023 Darren Arevalo Bipolar II disorder F31.81 ; Borderline personality disorder F60.3 ; Post traumatic stress disorder (PTSD) F43.10 and Anxiety, generalized F41.[address] [address] 01/04/2024 Darren Arevalo Bipolar II disorder F31.81 ; Borderline personality disorder F60.3 ; Post traumatic stress disorder (PTSD) F43.10 and Anxiety, generalized F41.[address] [address] 02/01/2024 Darren Arevalo Bipolar II disorder F31.81 ; Borderline personality disorder F60.3 ; Post traumatic stress disorder (PTSD) F43.10 and Anxiety, generalized F41.[address] [address] 02/29/2024 Darren Arevalo Bipolar II disorder F31.81 ; Borderline personality disorder F60.3 ; Post traumatic stress disorder (PTSD) F43.10 and Anxiety, generalized F41.[address] [place] [address] 03/28/2024 Darren Arevalo Bipolar II disorder F31.81 ; Borderline personality disorder F60.3 ; Post traumatic stress disorder (PTSD) F43.10 and Anxiety, generalized F41.[address] [place] [address] 06/13/2024 Darren Arevalo Bipolar II disorder F31.81 ; Borderline personality disorder F60.3 ; Post traumatic stress disorder (PTSD) F43.10 and Anxiety, generalized F41.[address] [place] [address] 07/11/2024 Darren Arevalo Bipolar II disorder F31.81 ; Borderline personality disorder F60.3 ; Post traumatic stress disorder (PTSD) F43.10 and Anxiety, generalized F41.[address] [place] [address] 08/08/2024 Darren Arevalo Bipolar II disorder F31.81 ; Borderline personality disorder F60.3 ; Post traumatic stress disorder (PTSD) F43.10 and Anxiety, generalized F41.[address] [place] [address] 09/04/2024 Darren Arevalo Bipolar II disorder F31.81 ; Borderline personality disorder F60.3 ; Post traumatic stress disorder (PTSD) F43.10 and Anxiety, generalized F41.[address] [place] [address] 11/05/2023 Darren Arevalo Anxiety, generalized F41.1 ; Post traumatic stress disorder (PTSD) F43.10 and Bipolar II disorder F31.[address] [place] [address] 02/02/2024 Darren Arevalo [address] [place] [address] 06/02/2024 Darren Arevalo Bipolar II disorder F31.81 [...] to limit stress and not overload schedule. 06/02/2024 Bipolar II disorder (ICD-10 - F31.81) 06/13/2024 Bipolar II disorder (ICD-10 - F31.81) [...] mechanisms to crowd out destructive coping mechanisms. 09/04/2024 Bipolar II disorder (ICD-10 - F31.81) Client doing well, no treatment plan changes needed at this time. 08/08/2024 Bipolar II disorder (ICD-10 - F31.81) [...] exercise and other forms of self care. 03/28/2024 Bipolar II disorder (ICD-10 - F31.81) [...] stress. No other treatment plan changes. 02/29/2024 Bipolar II disorder (ICD-10 - F31.81) Client doing well with medication changes from last visit. No medication changes today necessary. No refills needed as client wants month f/u and refills at last appt. 02/29/2024 Borderline personality disorder (ICD-10 - F60.3) Client doing well with medication changes from last visit. No medication changes today necessary. No refills needed as client wants month f/u and refills at last appt. 03/28/2024 Borderline personality disorder (ICD-10 - F60.3) [...] with stress. No other treatment plan changes. 08/08/2024 Borderline personality disorder (ICD-10 - F60.3) [...] exercise and other forms of self care. 06/02/2024 Anxiety, generalized (ICD-10 - F41.1) 09/04/2024 Borderline personality disorder (ICD-10 - F60.3) Client doing well, no treatment plan changes needed at this time. 07/11/2024 Borderline personality disorder (ICD-10 - F60.3) [...] tx plan changes needed at this time. 11/05/2023 Post traumatic stress disorder (PTSD) (ICD-10 - F43.10) 02/01/2024 Borderline personality disorder (ICD-10 - F60.3) [...] to treatment plan at this time. 11/15/2023 Post traumatic stress disorder (PTSD) (ICD-10 [...] to limit stress and not overload schedule. 11/05/2023 Bipolar II disorder (ICD-10 - F31.81) 06/02/2024 Post traumatic stress disorder (PTSD) (ICD-10 - F43.10) 06/13/2024 Post traumatic stress disorder (PTSD) (ICD-10 [...] mechanisms to crowd out destructive coping mechanisms. 09/04/2024 Post traumatic stress disorder (PTSD) (ICD-10 - F43.10) Client doing well, no treatment plan changes needed at this time. 08/08/2024 Post traumatic stress disorder (PTSD) (ICD-10 [...] exercise and other forms of self care. 03/28/2024 Post traumatic stress disorder (PTSD) (ICD-10 [...] stress. No other treatment plan changes. 02/29/2024 Post traumatic stress disorder (PTSD) (ICD-10 - F43.10) Client doing well with medication changes from last visit. No medication changes today necessary. No refills needed as client wants month f/u and refills at last appt. 02/29/2024 Anxiety, generalized (ICD-10 - F41.1) Client doing well with medication changes from last visit. No medication changes today necessary. No refills needed as client wants month f/u and refills at last appt. 03/28/2024 Anxiety, generalized (ICD-10 - F41.1) Client [...] with stress. No other treatment plan changes. 08/08/2024 Anxiety, generalized (ICD-10 - F41.1) Client [...] and other forms of self care. 09/04/2024 Anxiety, generalized (ICD-10 - F41.1) Client doing well, no treatment plan changes needed at this time. 07/11/2024 Anxiety, generalized (ICD-10 - F41.1) No [...] tx plan changes needed at this time. 02/01/2024 Anxiety, generalized (ICD-10 - F41.1) Client [...] number to the 24-hour crisis line at [facility]. Questions addressed. Client verbalized understanding of all [...] number to the 24-hour crisis line at [facility]. Questions addressed. Client verbalized understanding of all [...] number to the 24-hour crisis line at [facility]. Questions addressed. Client verbalized understanding of all [...] number to the 24-hour crisis line at [facility]. Questions addressed. Client verbalized understanding of all [...] number to the 24-hour crisis line at [facility]. Questions addressed. Client verbalized understanding of all [...] number to the 24-hour crisis line at [facility]. Questions addressed. Client verbalized understanding of all [...] number to the 24-hour crisis line at [facility]. Questions addressed. Client verbalized understanding of all [...] number to the 24-hour crisis line at [facility]. Questions addressed. Client verbalized understanding of all [...] number to the 24-hour crisis line at [facility]. Questions addressed. Client verbalized understanding of all [...] number to the 24-hour crisis line at [facility]. Questions addressed. Client verbalized understanding of all [...] Metabolic Panel* Hemoglobin A1c CLIA Waived 03/17/2022 Insurance Providers Payer Name Payer Address Payer Phone Subscriber Number Group Number Insured Name Patient Relationship to Insured Coverage Start Date Coverage End Date MEDICARE PART A [address] [place] [address] [id number] Perla Palomo Self - patient is the insured 8 MEDICAID [address] [place] [address] [id number] Perla Palomo Self - patient is the insured 0 4 [employer] Better [employer] Medicare-[facility] [address] [address] [place] [address] [id number] Perla Palomo Self - patient is the insured 2 2 Medical (General) History Medical History History ICD Code T2DM Asthma COPD hyperlipidemia Surgical History Surgery Date(Month/Year) cholecystectomy umbilical hernia repair ventral hernia repair Head and arms abcesss Hospitalization History Reason Date(Month/Year) Hussain Chest pain 08/2022 Possible stroke MH
--- OUTSIDE RECORDS SUMMARY | 2024-10-17 12:15 | XMS_ITS ---
Author Organization [facility] Address [address] [place] [address] Care Team Providers Care Health Claims Examiner Name Role Phone Darren Arevalo Primary Care Provider REASON FOR VISIT 1 Month Psych F/U & Med Refill Social History Sex Assigned At : Social History Observation Description Sex Assigned At Female Encounters Encounter Location Date Provider Diagnosis [address] [place] [address] 10/02/2024 Darren Arevalo Plan Of Treatment No Information Progress Notes * Perla LAWRENCE DDOB: [birth year] (49 yo F)Acc No.[id number]:10/02/2024 UNLOCKED PROGRESS NOTE Patient: Ibrahima SHEIKHPerla Jerez Provider: Devonte Arevalo DNP, MADIHA-CHRISTOPHER :1975 A ge:48 Y S ex:Female Date:10/02/2024 Address: [address] [id number] Subjective: * Chief Complaints: * 1 . 1 Month Psych F/U & Med Refill. * Medical History: Objective: * Vitals: Assessment: Plan: * Treatment: * * Electronic signature of Courtney Arevalo APRN, [id number] on 10/17/2024 at 12:15 PM CDT Sign off status: Pending * Provider: Devonte Arevalo DNP, KIMBERLYHNP-BC Date: 0 10/02/2024 Generated for Printi ng/Boubacar/Flashitting on: 0 10/17/2024 12:15 PM CDT
== END 2024-10-17 11:09 | disposition home or self-care (01) ==
PROVIDERS: PCP Internal Medicine; Visit Provider Nurse Practitioner Family
DX: N64.52 Nipple discharge (principal)
CPT/HCPCS: 76641; 77062; 77066; G0279

== ENCOUNTER 2024-12-19 13:03 | Outpatient (CLI) | payer MEDICARE, SELFPAY ==
--- OUTSIDE RECORDS SUMMARY | 2024-10-02 10:00 | XMS_ITS ---
Author Organization [facility] Address [address] [place] [address] Care Team Providers Care Car Barn Laborer Name Role Phone Darren Arevalo Primary Care Provider REASON FOR VISIT 1 Month Psych F/U & Med Refill Social History Sex Assigned At : Social History Observation Description Sex Assigned At Female Encounters Encounter Location Date Provider Diagnosis [address] [address] 10/02/2024 Darren Arevalo Plan Of Treatment Next Appt Details Provider Name:Darren carr, 12/25/2024 01:40:00 PM, [address] [place] [address], [place], [address], Progress Notes * Perla LAWRENCE DDOB: [birth year] (49 yo F)Acc No.[id number]:10/02/2024 UNLOCKED PROGRESS NOTE Patient: Ibrahima Perla HODGES Provider: Devonte Arevalo DNP, PMHNP-BC :1975 A ge:48 Y S ex:Female Date:10/02/2024 Address[facility] Subjective: * Chief Complaints: * 1 . 1 Month Psych F/U & Med Refill. * Medical History: Objective: * Vitals: Assessment: Plan: * Treatment: * * Electronic signature of Courtney Arevalo , MARIO, [id number] on 12/19/2024 at 01:17 PM CDT Sign off status: Pending * Provider: Devonte Arevalo DNP, PMHNP- Date: 0 10/02/2024 Generated for Yandy perera/Boubacar/Mario on: 0 12/19/2024 01:17 PM CDT
--- OUTSIDE RECORDS SUMMARY | 2024-12-19 13:17 | XMS_ITS | Clinical Summary ---
Author Organization [facility] Address [address] [place] [address] Care Team Providers Care Steel Analyst Name Role Phone Tim Wagoner DO Primary Care Provider [phone] Allergies Active Allergy Reactions Criticality Noted Date [...] History Date Comments Type 2 diabetes mellitus Depression GERD (gastroesophageal reflux disease) Hypertension Morbid obesity (HCC) Sleep apnea COPD (chronic obstructive pulmonary disease) Social History Tobacco Use Types Packs/Day Years [...] Vaccine (1 of 2) 10/05/2023 Covid-19 Vaccine (2023- season) 2024 04/14/2021, 09/05/2020, 08/15/2020 Influenza Vaccine (#1) 2025 02/14/2022, 2015 Insurance [facility] MEDICARE [place] MEDICARE [facility] Care Teams Steel Analyst Relationship Specialty Start Date End Date Tim Wagoner DO PCP - General 12/27/19
--- OUTSIDE RECORDS SUMMARY | 2024-12-19 13:17 | XMS_ITS | Clinical Summary ---
Author Organization [facility] Address [address] [place] [address] Phone Care Team Providers Care It Project Coordinator Name Role Phone Tracy Izaguirre DIEUDONNE Primary Care Provider [phone] Allergies Active Allergy Reactions Criticality Noted Date [...] DAILY 2 Active Lancets (OneTouch Delica Plus [id number]) misc USE TO CHECK BLOOD SUGAR EVERY [...] each day in the evening 2 Active [place]-3 Fatty Acids (Fish Oil) 1000 MG capsule [...] on file Legal Sex Female 10:24 AM [facility] Gender Identity Not on file Sexual Orientation Not on file Last Filed Vital Signs Vital Sign Reading Time Taken Comments Blood Pressure 122/70 04/15/2022 9:03 AM OPTOMECHANICAL TECHNICIAN Pulse 72 04/15/2022 9:03 AM OPTOMECHANICAL TECHNICIAN Temperature 36.1 C (97 F) 04/15/2022 9:03 AM OPTOMECHANICAL TECHNICIAN Respiratory Rate - - Oxygen Saturation - - Inhaled Oxygen Concentration - - Weight 125 kg (276 lb) 04/15/2022 9:03 AM OPTOMECHANICAL TECHNICIAN Height 165.1 cm (5' 5) 04/15/2022 9:03 AM OPTOMECHANICAL TECHNICIAN Body Mass Index 45.93 04/15/2022 9:03 AM OPTOMECHANICAL TECHNICIAN Plan of Treatment Health Maintenance Due Date Last Done Comments Influenza Vaccine (#1) 2025 02/14/2022 [place] [id number] MEDICARE [place]ICA[place] - [place] Care Teams It Project Coordinator Relationship Specialty Start Date End Date Tracy Izaguirre FNP PCP - General Family Medicine 04/15/22
--- OUTSIDE RECORDS SUMMARY | 2024-12-19 13:17 | XMS_ITS | Patient Health Record ---
Author Organization [facility] Address [address] [place] [address] Care Team Providers Care Registered Dietetic Technician Name Role Phone Darren Arevalo Primary Care [...] Duration) Notes Start Date End Date Status Baclofen 10 MG 1 tablet as needed Orally Twice a day Active Amoxicillin-Pot Clavulanate 875-125 MG 1 tablet Orally every 12 hrs; Duration: 10 days Unknown Farxiga 5 MG 1 tablet Orally Once a day Active Vascepa 1 GM 2 capsules with meal s Orally Twice a day; Duration: 30 day(s) Active Gabapentin 300 MG 1 capsule every morning and 3 capsules every evening Orally as directed.; Duration: 7 days Active Ozempic (1 MG/DOSE) 4 MG/3ML as directed Subcutaneous Not-Taking Mirena Active Loratadine 10 MG 1 tablet Orally Once a day; Duration: 30 day(s) Active Multi Vitamin - 1 tablet Orally Once a day; Duration: 30 day(s) Active Nystatin 430152 UNIT/GM 1 application Externally Twice a day Active Omeprazole 20 MG 1 capsule 30 minutes before morning meal Orally Once a day; Duration: 30 day(s) Active FreeStyle Regina 2 Sensor Systm Unknown Tresiba FlexTouch 200 UNIT/ML 25 units Subcutaneous once daily; Duration: 30 days 25U Unknown Glucagon 1 MG/0.2ML as directed Subcutaneous Active Lancets - as directed three times daily; Duration: 33 days 02/11/2022 Unknown Simvastatin 10 MG TAKE 1 TABLET BY MOUTH EVERY DAY IN THE EVENING; Duration: 30 Unknown Ibuprofen 200 MG 1 tablet with food o r milk as needed Orally Three times a day Unknown NovoLIN R FlexPen 100 UNIT/ML as directed Injection 20U three daily Unknown Albuterol Sulfate 2.5 MG/0.5ML as directed Inhalation Unknown Fish Oil 1000 MG 1 capsule Orally Onc e a day; Duration: 30 day(s) Not-Taking Lurasidone HCl 60 MG 1 tablet in the evening with food; Duration: 14 days Active FreeStyle Regina 2 Sensor - as directed; Duration: 14 days 01/27/2022 Unknown buPROPion HCl ER (XL) 300 MG 1 tablet in the morning Orally daily; Duration: 14 days Active Lisinopril 5 MG 1 tablet Orally Once a day; Duration: 30 days Active Prazosin HCl 1 MG TAKE 3 CAPSULES BY MOUTH DAILY AT BEDTIME; Duration: 14 days Active Insulin Pen Needle 32G X 4 MM as directed; Duration: 30 days Unknown Sertraline HCl 100 MG 2 tablets every morning Orally Once a day; Duration: 14 days Active Albuterol Sulfate 108 (90 Base) MCG/ACT 1 puff as needed Inhalation every 4 hrs Active Naltrexone HCl 50 MG 0.5 - 1 tablet Oral ly Once a day; Duration: 14 days 08/08/2024 Active Aspirin Low Dose 81 MG 1 tablet Orally Once a day; Duration: 30 day(s) Active Symbicort 80-4.5 MCG/ACT 2 [...] Status Risk Notes Problem Morbid obesity (disorder) (624049754) Morbid (severe) obesity due to excess calories (E66.01) Active confirmed Problem Tobacco user (600017637) Nicotine dependence, unspecified, uncomplicated (F17.200) Active confirmed Problem Bipolar II disorder (46005805) Bipolar II disorder (F31.81) Active confirmed Problem Borderline personality disorder (42237441) Borderline personality disorder (F60.3) Active confirmed Problem Hyperlipidemia (58512530) Hyperlipidemia (E78.5) 03/12/20 22 Active confirmed Problem Vitamin D deficiency (30393349) Vitamin D deficiency (E55.9) Active confirmed Problem Type 2 diabetes mellitus (80262164) Type 2 diabetes mellitus (E11.9) 03/12/20 22 Active confirmed Problem Posttraumatic stress disorder (86520517) Post traumatic stress disorder (PTSD) (F43.10) Active confirmed Problem Generalized anxiety disorder (11624094) Anxiety, generalized (F41.1) Active confirmed Problem Bladder dysfunction (69192214) Bladder dysfunction (N31.9) Active confirmed Problem Amphetamine use disorder, severe, in sustained 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) Active confirmed Encounters Encounter Location Date Provider Diagnosis [address] [address] 01/04/2024 Darren Arevalo Bipolar II disorder F31.81 ; Borderline personality disorder F60.3 ; Post traumatic stress disorder (PTSD) F43.10 and Anxiety, generalized F41.[address] [address] 02/01/2024 Darren Arevalo Bipolar II disorder F31.81 ; Borderline personality disorder F60.3 ; Post traumatic stress disorder (PTSD) F43.10 and Anxiety, generalized F41.[address] [address] 02/29/2024 Darren Arevalo Bipolar II disorder F31.81 ; Borderline personality disorder F60.3 ; Post traumatic stress disorder (PTSD) F43.10 and Anxiety, generalized F41.[address] [address] 03/28/2024 Darren Arevalo Bipolar II disorder F31.81 ; Borderline personality disorder F60.3 ; Post traumatic stress disorder (PTSD) F43.10 and Anxiety, generalized F41.[address] [address] 06/13/2024 Darren Arevalo Bipolar II disorder F31.81 ; Borderline personality disorder F60.3 ; Post traumatic stress disorder (PTSD) F43.10 and Anxiety, generalized F41.[address] [address] 07/11/2024 Darren Arevalo Bipolar II disorder F31.81 ; Borderline personality disorder F60.3 ; Post traumatic stress disorder (PTSD) F43.10 and Anxiety, generalized F41.[address] [address] 08/08/2024 Darren Arevalo Bipolar II disorder F31.81 ; Borderline personality disorder F60.3 ; Post traumatic stress disorder (PTSD) F43.10 and Anxiety, generalized F41.[address] [address] 09/04/2024 Darren Arevalo Bipolar II disorder F31.81 ; Borderline personality disorder F60.3 ; Post traumatic stress disorder (PTSD) F43.10 and Anxiety, generalized F41.[address] [address] 02/02/2024 Darren Arevalo [address] [address] 06/02/2024 Darren Arevalo Bipolar II disorder F31.81 ; Anxiety, generalized F41.1 and Post traumatic stress disorder (PTSD) F43.[address] [address] 12/11/2024 Darren Arevalo Borderline personality disorder F60.3 ; Anxiety, generalized F41.1 ; Post traumatic stress disorder (PTSD) F43.10 and Bipolar II disorder F31.81 Assessments Encounter Date Diagnosis (ICD Code) Assessment Notes Treatment Notes Treatment Clinical Notes Section Notes 01/04/2024 Bipolar II disorder (ICD-10 - F31.81) [...] mg to see if helpful for c/o irritability/m ood swings and nightmares. Client encouraged to limit stress and not overload schedule. 12/11/2024 Borderline personality disorder (ICD-10 - F60.3) 09/04/2024 Bipolar II disorder (ICD-10 - F31.81) [...] and other forms of self care. 07/11/2024 Bipolar II disorder (ICD-10 - F31.81) No changes to tx plan at this time - monitoring depression. Client to use positive coping mechanisms to crowd out destructive coping mechanisms. 03/28/2024 Bipolar II disorder (ICD-10 - F31.81) Client describes her depression as more seasonal/atypi deirdre in nature (eating more, not wanting to [...] month f/u and refills at last appt. 06/13/2024 Bipolar II disorder (ICD-10 - F31.81) Client with good response in regards to seasonal depression with increase in bupropion from 150 mg to 300 mg. Is recovering from PNA currently. Having fatigue from this but prior to PNA was having more motivation, energy and focus. No tx plan changes needed at this time. 06/02/2024 Bipolar II disorder (ICD-10 - F31.81) 06/02/2024 Anxiety, generalized (ICD-10 - F41.1) 06/13/2024 Borderline personality disorder (ICD-10 - F60.3) Client with good response in regards to seasonal depression with increase in bupropion from 150 mg to 300 mg. Is recovering from PNA currently. Having fatigue from this but prior to PNA was having more motivation, energy and focus. No tx plan changes needed at this time. 02/29/2024 Borderline personality disorder (ICD-10 - F60.3) Client doing well with medication changes from last visit. No medication changes today necessary. No refills needed as client wants month f/u and refills at last appt. 03/28/2024 Borderline personality disorder (ICD-10 - F60.3) Client describes her depression as more seasonal/atypi deirdre in nature (eating more, not wanting to get out of bed, fatigue, not wanting to do things). Discussed increase to bupropion as trial to see if helpful. Discussed other lifestyle approaches to dealing with seasonal depression as well and coping strategies to deal with stress. No other treatment plan changes. 07/11/2024 Borderline personality disorder (ICD-10 - F60.3) No changes to tx plan at this time - monitoring depression. Client to use positive coping mechanisms to crowd out destructive coping mechanisms. 08/08/2024 Borderline personality disorder (ICD-10 - F60.3) [...] and other forms of self care. 09/04/2024 Borderline personality disorder (ICD-10 - F60.3) Client doing well, no treatment plan changes needed at this time. 12/11/2024 Anxiety, generalized (ICD-10 - F41.1) 02/01/2024 Borderline personality disorder (ICD-10 - F60.3) Client agreeable to increase of Latuda to 60 mg and Prazosin to 3 mg to see if helpful for c/o irritability/m ood swings and nightmares. Client encouraged to limit [...] prefer 40 mg. No other treatment changes. 01/04/2024 Post traumatic stress disorder (PTSD) (ICD-10 [...] mg to see if helpful for c/o irritability/m ood swings and nightmares. Client encouraged to limit stress and not overload schedule. 12/11/2024 Post traumatic stress disorder (PTSD) (ICD-10 - F43.10) 09/04/2024 Post traumatic stress disorder (PTSD) (ICD-10 [...] and other forms of self care. 07/11/2024 Post traumatic stress disorder (PTSD) (ICD-10 - F43.10) No changes to tx plan at this time - monitoring depression. Client to use positive coping mechanisms to crowd out destructive coping mechanisms. 03/28/2024 Post traumatic stress disorder (PTSD) (ICD-10 - F43.10) Client describes her depression as more seasonal/atypi deirdre in nature (eating more, not wanting to [...] month f/u and refills at last appt. 06/13/2024 Post traumatic stress disorder (PTSD) (ICD-10 - F43.10) Client with good response in regards to seasonal depression with increase in bupropion from 150 mg to 300 mg. Is recovering from PNA currently. Having fatigue from this but prior to PNA was having more motivation, energy and focus. No tx plan changes needed at this time. 06/02/2024 Post traumatic stress disorder (PTSD) (ICD-10 - F43.10) 06/13/2024 Anxiety, generalized (ICD-10 - F41.1) Client with good response in regards to seasonal depression with increase in bupropion from 150 mg to 300 mg. Is recovering from PNA currently. Having fatigue from this but prior to PNA was having more motivation, energy and focus. No tx plan changes needed at this time. 02/29/2024 Anxiety, generalized (ICD-10 - F41.1) Client doing well with medication changes from last visit. No medication changes today necessary. No refills needed as client wants month f/u and refills at last appt. 03/28/2024 Anxiety, generalized (ICD-10 - F41.1) Client describes her depression as more seasonal/atypi deirdre in nature (eating more, not wanting to get out of bed, fatigue, not wanting to do things). Discussed increase to bupropion as trial to see if helpful. Discussed other lifestyle approaches to dealing with seasonal depression as well and coping strategies to deal with stress. No other treatment plan changes. 07/11/2024 Anxiety, generalized (ICD-10 - F41.1) No changes to tx plan at this time - monitoring depression. Client to use positive coping mechanisms to crowd out destructive coping mechanisms. 08/08/2024 Anxiety, generalized (ICD-10 - F41.1) Client [...] treatment plan changes needed at this time. 02/01/2024 Anxiety, generalized (ICD-10 - F41.1) Client agreeable to increase of Latuda to 60 mg and Prazosin to 3 mg to see if helpful for c/o irritability/m ood swings and nightmares. Client encouraged to limit stress and not overload schedule. 12/11/2024 Bipolar II disorder (ICD-10 - F31.81) 01/04/2024 Anxiety, generalized (ICD-10 - F41.1) Client overall doing quite well, but feels her mood is still lower than she would like and requests a trial of a higher dose of Latuda. Discussed option of raising dose to either 30 mg or 40 mg. Client would prefer 40 mg. No other treatment changes. 01/04/2024 Other Discussed sleep hygiene and caffeine [...] number to the 24-hour crisis line at [facility]. Questions addressed. Client verbalized understanding of [...] number to the 24-hour crisis line at [facility]. Questions addressed. Client verbalized understanding of all information and is agreeable to treatment plan. Client agreeable to increase of Latuda to 60 mg and Prazosin to 3 mg to see if helpful for c/o irritability/m ood swings and nightmares. Client encouraged to limit [...] number to the 24-hour crisis line at [facility]. Questions addressed. Client verbalized understanding of [...] number to the 24-hour crisis line at [facility]. Questions addressed. Client verbalized understanding of all information and is agreeable to treatment plan. Client describes her depression as more seasonal/atypi deirdre in nature (eating more, not wanting to [...] number to the 24-hour crisis line at [facility]. Questions addressed. Client verbalized understanding of [...] number to the 24-hour crisis line at [facility]. Questions addressed. Client verbalized understanding of [...] number to the 24-hour crisis line at [facility]. Questions addressed. Client verbalized understanding of [...] number to the 24-hour crisis line at [facility]. Questions addressed. Client verbalized understanding of [...] Waived 03/17/2022 Next Appt Details Provider Name:Darren carr, 12/25/2024 01:40:00 PM, [address], [place], [address], Insurance Providers Payer Name Payer Address Payer Phone Subscriber Number Group Number Insured Name Patient Relationship to Insured Coverage Start Date Coverage End Date MEDICARE PART A [address] [place] [address] [id number] Perla Palomo Self - patient is the insured 8 MEDICAID [address] [place] [address] [id number] Perla Palomo Self - patient is the insured 0 4 [employer] Medicare-M MAI [address] [address] [place] [address] [id number] Perla Palomo Self - patient is the insured 2 2 Medical (General) History Medical History History ICD Code T2DM Asthma COPD hyperlipidemia Surgical History Surgery Date(Month/Year) cholecystectomy umbilical hernia repair ventral hernia repair Head and arms abcesss Hospitalization History Reason Date(Month/Year) [facility] Chest pain 08/2022 Possible stroke MH
--- OUTSIDE RECORDS SUMMARY | 2024-12-19 13:17 | XMS_ITS | Clinical Summary ---
Author Organization [facility] Address [address] [place] [address] Care Team Providers Care Dedicated Driver Name Role Phone Unknown, Provider Primary Care Provider Unavaila ble Source Comments [facility],non-owned Affiliates and Associated Physician Practices is amultiple site organization consisting of ambulatory clinics and hospital sitesin [place], [place], [place] and [place]. This disclosure is being madepursuant to the Care Everywhere program and may not contain all information available regarding this patient. Last updated 18.[employer] Allergies Active Allergy Reactions Criticality Noted Date [...] season) 2024 DEPRESSION SCREENING 05/03/2024 INFLUENZA VACCINE (#1) 2025 02/14/2022 HIB VACCINE Aged Out No longer eligi [...] studies requested for comparison. Please note: The [employer] has determined that screening mammograms [...] Narrative 11/05/2017 10:34 AM CDT MAMMO BILAT DIAGNOSTIC*[id number]-DMRCTX WITH 3D TOMOSYNTHESIS AND CAD HISTORY: No [...] depending on clinical impression. Courtney García Chepe [employer] ENTRY CLERK MAMMO ORDERABLES Sharad R esult - Final from Last 3 Months or Most Recently Relevant to Health Maintenance Insurance [place] [id number] [place]ICAID [place] MEDIC[place] Care Teams Dedicated Driver Relationship Specialty Start Date End Date Unknown, Provider PCP - General 08/09/20
[2024-12-19 14:20] LABS: Hematocrit 43.2 % (37.0-47.0); Hemoglobin 13.9 g/dL (12.0-15.0); Mean Corpuscular HGB Conc 32.2 g/dl (32-36); Mean Corpuscular Hemoglobin 29.4 pg (26-34); Mean Corpuscular Volume 91.3 fl (80-100); Platelet Count Result 358 k/mm3 (150-375); Red Blood Count 4.73 M/mm3 (4.2-5.4); White Blood Count 8.0 K/mm3 (4.5-10.0)
[2024-12-19 14:24] LABS: Albumin Level 4.5 g/dL (3.5-5.1); Anion Gap 13 mmol/L (4-12); Blood Urea Nitrogen 24 mg/dL (7-17); Calcium 9.8 mg/dL (8.4-10.2); Carbon Dioxide 21 mmol/L (22-30); Chloride 107 mmol/L (98-107); Estimated Glomerular Filt Rate 50; Glucose 122 mg/dL (65-110); Potassium 4.1 mmol/L (3.4-5.0); Sodium 141 mmol/L (137-145)
[2024-12-19 15:49] LABS: Total Protein Urine Random 26 mg/dL; Ur Ttl Prot Creatinine Ratio 0.12 mg/mg (0-0.20)
[2024-12-19 17:56] LABS: Parathyroid Intact 16.5 pg/mL (14.5-75.2)
== END 2024-12-19 13:04 | disposition home or self-care (01) ==
PROVIDERS: PCP Internal Medicine; Referring Provider Nurse Practitioner Family; Visit Provider Internal Medicine Nephrology
DX: I10 Essential (primary) hypertension (principal); R80.1 Persistent proteinuria, unspecified; R32 Unspecified urinary incontinence; N64.52 Nipple discharge
CPT/HCPCS: 36415; 80069; 82570; 83970; 84146; 84156; 85027

== ENCOUNTER 2025-03-08 01:09 | Day surgery (SDC) | payer MEDICARE, MEDICAID, SELFPAY ==
--- OUTSIDE RECORDS SUMMARY | 2010-07-22 04:41 | XMS_ITS | Continuity of Care Document ---
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 [address] [place] [address], [id number] , [place]. tel:[phone] Offic/outpt E&m Estab Mod-hi 2 [facility], [address] [place] [address], [id number] tel:[phone] [facility] [employer] Diabetes mellitusAsthm aArthritis, unspecified siteApnea, sleep NOSIrritable bowel syndromeHeart burn 1 Michael Wong. [address] [place] [address], [id number] , [place]. tel:[phone] Referring Provider: Minerva Loza, [address] [place] [address], [id number]. tel:[phone] [facility], [address] [place] [address], [id number] tel:[phone] [facility] [facility] [employer] Diabetes mellitusAsthm a 6 Michael Wong. [address] [place] [address], [id number] , [place]. tel:[phone] Referring Provider: Minerva Loza, [address] [place] [address], [id number]. tel:[phone] Offic/outpt E m Estab Low [facility], [address] [place] [address], [id number] tel:[phone] [facility] Diabetes mellitusAsthm aDiabetes mellitusAsthm aConstipation Nausea 3 Michael Wong. [address] [place] [address], [id number] , . tel:[phone] Referring Provider: Minerva Lux MD S, [address] [place] [address], [id number]. tel:[phone] Offic/outpt E m Estab Min [facility], [address] [place] [address], [id number] tel:[phone] [facility] Chronic Fatty Liver,/non alcoholicChro micheal Fatty Liver,/non alcoholic Oct- 3 Michael Wong. [address] [place] [address], [id number] , [place]. tel:[phone] Referring Provider: Minerva Loza, [address] [place] [address], [id number]. tel:[phone] Offic Cons New/estab Mod-4) [facility] [employer] [employer], [address] [place] [address], [id number] tel:[phone] [facility] Abnormal liver testsAbnormal liver tests 3 Michael Wong. [address] [place] [address], [id number] , [place]. tel:[phone] Referring Provider: Minerva Loza, [address] [place] [address], [id number]. tel:[phone] Family History Family Member Type Diagnosis Age At Onset No Information Payers Payer name Insurance type Covered green party ID Authoriza tion(s) [employer] PPO BL [id number] Medicare MB [id number] Social History Type Description Quantity Date Captured [...]
--- OUTSIDE RECORDS SUMMARY | 2024-05-30 09:00 | XMS_ITS ---
Author Organization [facility] Address [address] [place] [address] Care Team Providers Care Acid Tester Name Role Phone Darren Arevalo Primary Care Provider REASON FOR VISIT 2 Month Psych F/U & Med Refill Social History Sex Assigned At : Social History Observation Description Sex Assigned At Female Encounters Encounter Location Date Provider Diagnosis [address] [place] [address] 05/30/2024 Darren Arevlao Plan Of Treatment No Information Progress Notes * Perla LAWRENCE DDOB: [birth year] (49 yo F)Acc No.[id number]:05/30/2024 UNLOCKED PROGRESS NOTE Patient: Ibrahima SHEIKHMeri Perla Aissatou Provider: Devonte Arevalo DNP, PMSJP-BC :1975 A ge:48 Y S ex:Female Date:05/30/2024 Address: [address] [id number] Subjective: * Chief Complaints: * 1 . 2 Month Psych F/U & Med Refill. * Medical History: Objective: * Vitals: Assessment: Plan: * Treatment: * * Electronic signature of Courtney Arevalo APRN, [id number] on 03/08/2025 at 04:07 PM MANAGER OF CUSTOMER BILLING Sign off status: Pending * Provider: Devonte Arevalo DNP, PMHNP-BC Date: 0 05/30/2024 Generated for Yandy perera/Boubacar/Mario on: 1 05/08/2024 04:07 PM MANAGER OF CUSTOMER BILLING
--- OUTSIDE RECORDS SUMMARY | 2024-10-02 09:00 | XMS_ITS ---
Author Organization [facility] Address [address] [place] [address] Care Team Providers Care Tour Operator Name Role Phone Darren Arevalo Primary Care Provider REASON FOR VISIT 1 Month Psych F/U & Med Refill Social History Sex Assigned At : Social History Observation Description Sex Assigned At Female Encounters Encounter Location Date Provider Diagnosis [address] [place] [address] 10/02/2024 Darren Arevalo Plan Of Treatment No Information Progress Notes * Perla LAWRENCE DDOB: [birth year] (49 yo F)Acc No.[id number]:10/02/2024 UNLOCKED PROGRESS NOTE Patient: Ibrahima SHEIKHMeri Perla Aissatou Provider: Devonte Arevalo DNP, PMSJP-BC :1975 A ge:48 Y S ex:Female Date:10/02/2024 Address: [address] [id number] Subjective: * Chief Complaints: * 1 . 1 Month Psych F/U & Med Refill. * Medical History: Objective: * Vitals: Assessment: Plan: * Treatment: * * Electronic signature of Courtney Arevalo APRN, [id number] on 03/08/2025 at 04:07 PM SHEET ROCK APPLIER Sign off status: Pending * Provider: Devonte Arevalo DNP, PMHNP-BC Date: 0 10/02/2024 Generated for Yandy perera/Boubacar/Mario on: 1 05/08/2024 04:07 PM SHEET ROCK APPLIER
[2025-03-01 11:07] VITALS: BMI 44.9
[2025-03-08 10:09] VITALS: BP 145/92; PULSE 97; RESP 20; TEMP 36.3; O2SAT 100
[2025-03-08] MEDS: LACTATED RINGERS 1,000 ML 150 ML IV CONT (10:12)
--- NOTE | 2025-03-08 10:12 | WPDANESEPPF ---
Anes - Initial Pre Proc Eval Procedure: Operation Date: 03/08/25 11:30 Proposed Procedures p Screening Colonoscopy - Peter Bautista MD Date/Time: 03/08/25 10:12 Surgeon: Peter Bautista MD Pre Op Diagnosis: Personal history of colon polyps, unspecified Patient Data Age: 49 Gender: F Height: 1.65 m Weight: 123.5 kg Last Vital Signs Temp 36.3 C L 03/08/25 10:09 Pulse 97 03/08/25 10:09 Resp 20 03/08/25 10:09 BP 145/92 H 03/08/25 10:09 Pulse Ox 100 03/08/25 10:09 O2 Del Method Room Air 03/08/25 10:09 Allergies Allergy/AdvReac Type Severity Reaction Status Date / Time asenapine (From Saphris) Allergy Intermediate numbness Verified 03/08/25 10:04 in mouth, throat capsaicin (From Capzasin) Allergy Mild rash Verified 03/08/25 10:04 Sulfa (Sulfonamide Allergy Mild RASH Verified 03/08/25 10:04 Antibiotics) erythromycin base AdvReac Mild DIARRHEA Verified 03/08/25 10:04 Home Medications ?Medication ?Instructions ?Recorded ?Confirmed ?Type aspirin 81 mg tablet,delayed 81 mg PO DAILY 11/07/19 03/08/25 History release (Adult Low Dose Aspirin) loratadine 10 mg tablet 10 mg PO DAILY 11/07/19 03/08/25 History sertraline 100 mg tablet 200 mg PO DAILY 06/14/20 03/08/25 History multivitamin 1 tablet PO DAILY 08/12/20 03/08/25 History levonorgestrel (Mirena) 1 insert intrauterine ONCE 05/06/21 03/01/25 History omeprazole 20 mg capsule,delayed 20 mg PO DAILY 07/09/21 03/08/25 History release calcium carbonate (Calcium 600) 600 mg PO DAILY 07/23/22 03/08/25 History nystatin 100,000 unit/gram topical 1 applic topical .COMPLEX #60 grams 07/23/22 03/01/25 Rx powder fluticasone propionate 50 1 spray intranasal DIRECTED PRN 01/28/23 03/01/25 Rx mcg/actuation nasal skin irritation #16 grams spray,suspension (Flonase Allergy Relief) turmeric 100 mg-angelo 150 cap PO 01/28/23 02/09/25 History mg-olive 50 mg-oreg 150 mg-capryl capsule imiquimod 5 % topical cream packet 1 applic topical 3XW #12 ea 09/08/23 03/01/25 Rx Held on 03/01/25. Instructions: Patient no longer taking Farxiga 10 mg tablet 10 mg PO QAM #90 tabs 10/14/23 03/08/25 Rx (dapagliflozin propanediol) glucagon 1 mg/0.2 mL subcutaneous 1 mg (0.2 mL) subcut ONCE PRN 10/14/23 03/01/25 Rx auto-injector (Gvoke HypoPen hypoglycemia #0.4 mL 2-Pack) mometasone-formoterol HFA 100 2 puff inhalation Q12H #13 grams 12/23/23 03/08/25 Rx mcg-5 mcg/actuation aerosol inhaler (Dulera) rosuvastatin 40 mg tablet 40 mg PO DAILY #90 tabs 01/12/24 03/08/25 Rx blood-glucose sensor (Dexcom G6 #9 ea 02/28/24 02/09/25 Rx Sensor device) blood-glucose transmitter (Dexcom #1 ea 02/28/24 02/09/25 Rx G6 Transmitter device) insulin pump cart,automated,BT #45 ea 03/16/24 02/09/25 Rx bupropion HCl 300 mg 24 hr tablet, 300 mg PO DAILY 04/04/24 03/08/25 History extended release lurasidone 60 mg tablet 60 mg PO QPM 04/04/24 03/08/25 History prazosin 1 mg capsule 3 mg PO QHS 04/04/24 03/08/25 History baclofen 10 mg tablet 10 mg PO Q6H PRN muscle spasm #30 05/22/24 03/01/25 Rx tabs insulin glargine 100 unit/mL (3 45 unit (0.45 mL) subcut QAM PRN 05/31/24 03/01/25 Rx mL) subcutaneous pen (Lantus insulin pump malfunction #15 mL Solostar U-100 Insulin) pen needle, diabetic 33 gauge x #100 ea 05/31/24 02/09/25 Rx 3/16 (Comfort EZ Pen [place]) alcohol swabs pad topical 06/14/24 02/09/25 History insulin pump cart,auto,BT,G6/7 #5 ea 06/14/24 02/09/25 History (Omnipod 5 G6-G7 Pods (Gen 5) subcutaneous cartridge) pen needle, diabetic 31 gauge x #1,200 ea 06/14/24 02/09/25 History 5/16 (BD Ultra-Fine Short Pen Needle) niacin 500 mg tablet 1,500 mg PO BID 07/13/24 03/08/25 History albuterol sulfate 90 mcg/actuation 2 puff inhalation Q4H PRN 07/17/24 03/01/25 Rx aerosol inhaler Shortness Of Breath #8.5 grams insulin aspart U-100 100 unit/mL 120 unit (1.2 mL) continuous 07/25/24 03/01/25 Rx subcutaneous solution (Novolog subcutaneous infusion DAILY #120 mL U-100 Insulin aspart) ergocalciferol (vitamin D2) 1 cap PO DAILY 09/20/24 03/08/25 History [Vitamin D2] naltrexone 50 mg tablet See Rx Instructions PO DAILY 09/20/24 03/08/25 History tirzepatide 15 mg/0.5 mL 15 mg (0.5 mL) subcut WEEKLY #6 mL 11/01/24 03/08/25 Rx subcutaneous pen injector (Mounjaro) lisinopril 5 mg tablet 2.5 mg (1/2 x 5 mg) PO DAILY #90 11/02/24 03/08/25 Rx tabs gabapentin 300 mg capsule 300 mg PO .COMPLEX 90 days #360 02/07/25 03/08/25 Rx caps metformin 500 mg tablet,extended 1,000 mg (2 x 500 mg) PO BID #360 02/07/25 03/08/25 Rx release 24 hr (Glucophage XR) tabs ostomy supplies (Skin Prep Wipes) #50 ea 02/07/25 02/09/25 Rx omega 6-pjf-muk-fish oil 1,000 mg 2 cap PO DAILY 02/09/25 03/08/25 History (120 mg-180 mg) capsule (Fish Oil) fenofibrate 160 mg tablet See Rx Instructions .Route 02/19/25 03/08/25 Rx .COMPLEX #90 tabs Patient hx anesthesia problems: none Family hx anesthesia problems: none Results Review: All pre-operative results and documents have been reviewed as part of the pre-operative evaluation. [facility] Past Medical History Medical History Trigger thumb, left thumb Hypertension Hypothyroidism Tobacco abuse Obstructive sleep apnea Posttraumatic stress disorder Irritable bowel syndrome Insulin dependent type 2 diabetes mellitus Gastroesophageal reflux disease Chronic obstructive pulmonary disease Transient ischemic attack DJD of shoulder High cholesterol Chronic headaches History of MRSA infection Asthma Drug abuse in remission Osteoarthritis Hepatitis C Treated. Arthritis Anxiety Depression Allergies Surgical History Surgical History History of cardiac cath 10/2022 History of umbilical hernia repair History of laparoscopic cholecystectomy History of colonoscopy with polypectomy History of colonoscopy History of ventral hernia repair History of surgery on arm Family History Family History Mother Diabetes mellitus Asthma Obesity Depression Hypertension Afib Father Brain tumor Depression Social History Social History Social History: Surrogate medical decision maker: Hai Aguillon, father. Code status: Full code. 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 Gender identity (if verbalized by the patient): Female Spiritual care concerns: No Anes - Eval Final PreProcedure Day of Procedure 03/08/25 10:12 Patient weight: morbidly obese Heart: regular rate and rhythm Lungs: clear to auscultation Airway: Mallampati scale class II Neurological: alert and oriented Last oral intake: >/= 8 hours ASA classification: III Emergent: no Anesthetic plan: proceed Anesthesia type and monitoring: general GIVS and standard monitoring Results Review: All pre-operative results and documents have been reviewed as part of the pre-operative evaluation. Informed Consent: The patient's anesthetic plan and its attendant risks and benefits were discussed with the patient/family/POA. Questions were solicited and answers provided to the satisfaction of the patient/family/POA.
[2025-03-08 10:13] LABS: BEDSIDEPREGUCG Negative (Negative)
--- NOTE | 2025-03-08 10:18 | PM.HPGS ---
History of Present Illness History of Present Illness Consent: Risks, benefits, and alternatives have been discussed and questions answered. Patient agrees to proceed with procedure. Chief complaint: Personal history of colon polyps, unspecified Narrative: Perla Palomo is a 49 year old female with last colonoscopy 2019, the previous one she had polyp Review of Systems Review of Systems: All systems reviewed & are unremarkable except as noted in HPI and below PMFSH Past Medical History Medical History Trigger thumb, left thumb Hypertension Hypothyroidism Tobacco abuse Obstructive sleep apnea Posttraumatic stress disorder Irritable bowel syndrome Insulin dependent type 2 diabetes mellitus Gastroesophageal reflux disease Chronic obstructive pulmonary disease Transient ischemic attack DJD of shoulder High cholesterol Chronic headaches History of MRSA infection Asthma Drug abuse in remission Osteoarthritis Hepatitis C Treated. Arthritis Anxiety Depression Allergies Surgical History Surgical History History of cardiac cath 10/2022 History of umbilical hernia repair History of laparoscopic cholecystectomy History of colonoscopy with polypectomy History of colonoscopy History of ventral hernia repair History of surgery on arm Family History Family History Mother Diabetes mellitus Asthma Obesity Depression Hypertension Afib Father Brain tumor Depression Social History Social History Social History: Surrogate medical decision maker: Hai Aguillon, father. Code status: Full code. 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 Gender identity (if verbalized by the patient): Female Spiritual care concerns: No Meds Home Medications and Allergies Home Medications ?Medication ?Instructions ?Recorded ?Confirmed ?Type aspirin 81 mg tablet,delayed 81 mg PO DAILY 11/07/19 03/08/25 History release (Adult Low Dose Aspirin) loratadine 10 mg tablet 10 mg PO DAILY 11/07/19 03/08/25 History sertraline 100 mg tablet 200 mg PO DAILY 06/14/20 03/08/25 History multivitamin 1 tablet PO DAILY 08/12/20 03/08/25 History levonorgestrel (Mirena) 1 insert intrauterine ONCE 05/06/21 03/01/25 History omeprazole 20 mg capsule,delayed 20 mg PO DAILY 07/09/21 03/08/25 History release calcium carbonate (Calcium 600) 600 mg PO DAILY 07/23/22 03/08/25 History nystatin 100,000 unit/gram topical 1 applic topical .COMPLEX #60 grams 07/23/22 03/01/25 Rx powder fluticasone propionate 50 1 spray intranasal DIRECTED PRN 01/28/23 03/01/25 Rx mcg/actuation nasal skin irritation #16 grams spray,suspension (Flonase Allergy Relief) turmeric 100 mg-angelo 150 cap PO 01/28/23 02/09/25 History mg-olive 50 mg-oreg 150 mg-capryl capsule imiquimod 5 % topical cream packet 1 applic topical 3XW #12 ea 09/08/23 03/01/25 Rx Held on 03/01/25. Instructions: Patient no longer taking Farxiga 10 mg tablet 10 mg PO QAM #90 tabs 10/14/23 03/08/25 Rx (dapagliflozin propanediol) glucagon 1 mg/0.2 mL subcutaneous 1 mg (0.2 mL) subcut ONCE PRN 10/14/23 03/01/25 Rx auto-injector (Gvoke HypoPen hypoglycemia #0.4 mL 2-Pack) mometasone-formoterol HFA 100 2 puff inhalation Q12H #13 grams 12/23/23 03/08/25 Rx mcg-5 mcg/actuation aerosol inhaler (Dulera) rosuvastatin 40 mg tablet 40 mg PO DAILY #90 tabs 01/12/24 03/08/25 Rx blood-glucose sensor (Dexcom G6 #9 ea 02/28/24 02/09/25 Rx Sensor device) blood-glucose transmitter (Dexcom #1 ea 02/28/24 02/09/25 Rx G6 Transmitter device) insulin pump cart,automated,BT #45 ea 03/16/24 02/09/25 Rx bupropion HCl 300 mg 24 hr tablet, 300 mg PO DAILY 04/04/24 03/08/25 History extended release lurasidone 60 mg tablet 60 mg PO QPM 04/04/24 03/08/25 History prazosin 1 mg capsule 3 mg PO QHS 04/04/24 03/08/25 History baclofen 10 mg tablet 10 mg PO Q6H PRN muscle spasm #30 05/22/24 03/01/25 Rx tabs insulin glargine 100 unit/mL (3 45 unit (0.45 mL) subcut QAM PRN 05/31/24 03/01/25 Rx mL) subcutaneous pen (Lantus insulin pump malfunction #15 mL Solostar U-100 Insulin) pen needle, diabetic 33 gauge x #100 ea 05/31/24 02/09/25 Rx 3/16 (Comfort EZ Pen [place]) alcohol swabs pad topical 06/14/24 02/09/25 History insulin pump cart,auto,BT,G6/7 #5 ea 06/14/24 02/09/25 History (Omnipod 5 G6-G7 Pods (Gen 5) subcutaneous cartridge) pen needle, diabetic 31 gauge x #1,200 ea 06/14/24 02/09/25 History 5/16 (BD Ultra-Fine Short Pen Needle) niacin 500 mg tablet 1,500 mg PO BID 07/13/24 03/08/25 History albuterol sulfate 90 mcg/actuation 2 puff inhalation Q4H PRN 07/17/24 03/01/25 Rx aerosol inhaler Shortness Of Breath #8.5 grams insulin aspart U-100 100 unit/mL 120 unit (1.2 mL) continuous 07/25/24 03/01/25 Rx subcutaneous solution (Novolog subcutaneous infusion DAILY #120 mL U-100 Insulin aspart) ergocalciferol (vitamin D2) 1 cap PO DAILY 09/20/24 03/08/25 History [Vitamin D2] naltrexone 50 mg tablet See Rx Instructions PO DAILY 09/20/24 03/08/25 History tirzepatide 15 mg/0.5 mL 15 mg (0.5 mL) subcut WEEKLY #6 mL 11/01/24 03/08/25 Rx subcutaneous pen injector (Mounjaro) lisinopril 5 mg tablet 2.5 mg (1/2 x 5 mg) PO DAILY #90 11/02/24 03/08/25 Rx tabs gabapentin 300 mg capsule 300 mg PO .COMPLEX 90 days #360 02/07/25 03/08/25 Rx caps metformin 500 mg tablet,extended 1,000 mg (2 x 500 mg) PO BID #360 02/07/25 03/08/25 Rx release 24 hr (Glucophage XR) tabs ostomy supplies (Skin Prep Wipes) #50 ea 02/07/25 02/09/25 Rx omega 1-bpv-toa-fish oil 1,000 mg 2 cap PO DAILY 02/09/25 03/08/25 History (120 mg-180 mg) capsule (Fish Oil) fenofibrate 160 mg tablet See Rx Instructions .Route 02/19/25 03/08/25 Rx .COMPLEX #90 tabs Allergies Allergy/AdvReac Type Severity Reaction Status Date / Time asenapine (From Saphris) Allergy Intermediate numbness Verified 03/08/25 10:04 in mouth, throat capsaicin (From Capzasin) Allergy Mild rash Verified 03/08/25 10:04 Sulfa (Sulfonamide Allergy Mild RASH Verified 03/08/25 10:04 Antibiotics) erythromycin base AdvReac Mild DIARRHEA Verified 03/08/25 10:04 Vital Signs Vital Signs - 24 hr 03/08/25 10:09 Temperature 97.3 F L Pulse Rate 97 Respiratory Rate 20 Blood Pressure 145/92 H Pulse Oximetry 100 Oxygen Delivery Room Air Exam Const: General: comfortable, no acute distress and obese HENMT: Face/Nose/Sinus: Normal nares present Eyes: General: appearance normal, both eyes and all related structures Resp: Auscultation: clear to auscultation bilaterally Cardio: Rate: regular rate Rhythm: regular rhythm GI: Inspection: non-distended GI Palp: Yes Soft to palpation Skin: General skin exam: normal color Extrem: General: normal to inspection Psych: Mental Status: mental status grossly normal Assessment and Plan Assessment and plan (1) Hx of colonic polyps: Code(s): Z86.010 - Personal history of colon polyps Status: Acute Assessment and Plan: colonoscopy
--- NOTE | 2025-03-08 10:30 | S_PTH ---
PATIENT: Perla Palomo LOC: [facility]#:[id number] AGE/SX: 49/F ROOM: RE03/08/[address]: Peter Bautista MD : 1975 BED: DIS: 03/08/2025 SPEC #: [id number] RECD: 03/08/25 11:34 STATUS: YAYA REOswaldo #: [id number] ROXANA: 03/08/25 10:[address]: Peter Bautista DEPT: [facility] Surgical RECD BY: Julia Ramirez ENTERED: 03/08/25 11:35 SP TYPE: Surgical OTHR DR: Tim Wagoner DO Tissues: A - Colon Polypectomy B - Colon Polypectomy Procedures: Hematoxylin and Eosin Stain Gross and Microscopic Level 4
[2025-03-08 10:32] VITALS: BP 106/63; PULSE 81; RESP 24; O2SAT 94
[2025-03-08 10:42] VITALS: BP 94/40; PULSE 82; RESP 24; O2SAT 94
[2025-03-08 10:52] VITALS: BP 116/76; PULSE 80; RESP 25; O2SAT 98
--- NOTE | 2025-03-08 11:00 | SUR.PHASEII ---
Pt's BS on Dexcom is 154
--- OUTSIDE RECORDS SUMMARY | 2025-03-08 16:07 | XMS_ITS | Clinical Summary ---
Author Organization [facility] Address [address] [place] [address] Care Team Providers Care Traffic Monitor Specialist Name Role Phone Unknown, Provider Primary Care Provider Unavaila ble Source Comments [facility],non-owned Affiliates and Associated Physician Practices is amultiple site organization consisting of ambulatory clinics and hospital sitesin [place], [place], [place] and [place]. This disclosure is being madepursuant to the Care Everywhere program and may not contain all information available regarding this patient. Last updated 18.[facility] [id number] Allergies Active Allergy Reactions Criticality Noted Date [...] 10/05/2023 ZOSTER VACCINE (1 of 2) 10/05/2023 DEPRESSION SCREENING 05/03/2024 COVID-19 VACCINE (1 - 2023-2 5 season) 2025 INFLUENZA VACCINE (#1) 2025 02/14/2022 HIB VACCINE [...] studies requested for comparison. Please note: [employer] has determined that screening mammograms [...] Narrative 11/05/2017 10:34 AM CDT MAMMO BILAT DIAGNOSTIC*[id number] WITH 3D TOMOSYNTHESIS AND CAD HISTORY: No [...] depending on clinical impression. Courtney García Chepe PHLEBOTOMY SERVICES REPRESENTATIVE-[facility] MAMMO ORDERABLES Sharad R esult - Final from Last 3 Months or Most Recently Relevant to Health Maintenance Insurance [facility] [place] [id number] MEDICAID - [place] MEDICARE Care Teams Traffic Monitor Specialist Relationship Specialty Start Date End Date Unknown, Provider PCP - General 08/09/20
--- OUTSIDE RECORDS SUMMARY | 2025-03-08 16:07 | XMS_ITS | Clinical Summary ---
Author Organization [facility] Address [address] [place] [address] Care Team Providers Care Brick Shader Name Role Phone Tim Wagoner DO Primary Care Provider Allergies Active Allergy Reactions Criticality Noted Date [...] Health Maintenance Due Date Last Done Comments Albumin Creatinine Ratio, Urine 1975 Breast Cancer Screening-Mammogram 1973 Cervical Cancer Screening 1973 Colon Cancer Screening-Colonoscopy 1973 Depression Screening 1973 Hemoglobin A1C 1973 Hepatitis C Screening 1973 eGFR 1973 Dilated Eye Exam 1973 Foot Exam 1973 Lipid Panel 1973 DTaP/Tdap/Td Vaccine (1 - Tdap) 1984 Hepatitis B Screening 10/05/1991 Regular Well Visit/Exam 18-64 10/05/1991 Pneumococcal vaccine <65 (1 of 2 - PCV) 1992 Zoster Vaccine (1 of 2) 10/05/2023 Covid-19 Vaccine (4 - 2024- season) 2025 04/14/2021, 09/05/2020, 08/15/2020 Influenza Vaccine (#1) 2025 02/14/2022, 2015 Insurance MEDICARE [facility] MEDICARE MEDICARE Care Teams Brick Shader Relationship Specialty Start Date End Date Tim Wagoner DO PCP - General 12/27/19
--- OUTSIDE RECORDS SUMMARY | 2025-03-08 16:07 | XMS_ITS | Patient Health Record ---
Author Organization [facility] Address [address] [place] [address] Care Team Providers Care Rx Specialist Name Role Phone Darren Arevalo Primary Care [...] Duration) Notes Start Date End Date Status Nystatin 752178 UNIT/GM 1 application Externally Twice a day Active Multi Vitamin - 1 tablet Orally Once a day; Duration: 30 day(s) Active Albuterol Sulfate 2.5 MG/0.5ML as directed Inhalation Unknown NovoLIN R FlexPen 100 UNIT/ML as directed Injection 20U three daily Unknown buPROPion HCl ER (XL) 300 MG 1 tablet in the morning Orally daily; Duration: 30 days Active Loratadine 10 MG 1 tablet Orally Once a day; Duration: 30 day(s) Active Lurasidone HCl 60 MG 1 tablet in the evening with food Once a day; Duration: 30 days Active Mirena Active Sertraline HCl 100 MG 2 tablets every morning Orally Once a day; Duration: 30 days Active Aspirin Low Dose 81 MG 1 tablet Orally Once a day; Duration: 30 day(s) Active Albuterol Sulfate 108 (90 Base) MCG/ACT 1 puff as needed Inhalation every 4 hrs Active Prazosin HCl 1 MG TAKE 3 CAPSULES BY MOUTH DAILY AT BEDTIME; Duration: 30 days Active Ibuprofen 200 MG 1 tablet with food o r milk as needed Orally Three times a day Unknown Symbicort 80-4.5 MCG/ACT 2 puffs Inhalation Once a day Active Simvastatin 10 MG TAKE 1 TABLET BY MOUTH EVERY DAY IN THE EVENING; Duration: 30 Unknown Vascepa 1 GM 2 capsules with meal s Orally Twice a day; Duration: 30 day(s) Active Tresiba FlexTouch 200 UNIT/ML 25 units Subcutaneous once daily; Duration: 30 days 25U Unknown Naltrexone HCl 50 MG 0.5 - 1 tablet Oral ly Once a day; Duration: 30 days 08/08/2024 Active FreeStyle Regina 2 Sensor Systm Unknown Amoxicillin-Pot Clavulanate 875-125 MG 1 tablet Orally every 12 hrs; Duration: 10 days Unknown Lancets - as directed three times daily; Duration: 33 days 02/11/2022 Unknown FreeStyle Regina 2 Sensor - as directed; Duration: 14 days 01/27/2022 Unknown Fish Oil 1000 MG 1 capsule Orally Onc e a day; Duration: 30 day(s) Not-Taking Insulin Pen Needle 32G X 4 MM as directed; Duration: 30 days Unknown Omeprazole 20 MG 1 capsule 30 minutes before morning meal Orally Once a day; Duration: 30 day(s) Active Lisinopril 5 MG 1 tablet Orally Once a day; Duration: 30 days Active Farxiga 5 MG 1 tablet Orally Once a day Active Baclofen 10 MG 1 tablet as needed Orally Twice a day Active Ozempic (1 MG/DOSE) 4 MG/3ML as directed Subcutaneous Not-Taking Gabapentin 300 MG 1 capsule every morning and 3 capsules every evening Orally as directed.; Duration: 7 days Active Glucagon 1 MG/0.2ML as directed Subcutaneous Active Social History Tobacco Use: Social History [...] Question Answer Notes Tobacco use: Current smoker Additional Findings: Tobacco user e-cigarette Problems Problem Type SNOMED Code ICD Code Onset Dates Problem Status W/U Status Risk Notes Problem Morbid obesity (disorder) (780096200) Morbid (severe) obesity due to excess calories (E66.01) Active confirmed Problem Tobacco user (640488982) Nicotine dependence, unspecified, uncomplicated (F17.200) Active confirmed Problem Bipolar II disorder (30413363) Bipolar II disorder (F31.81) Active confirmed Problem Borderline personality disorder (81951667) Borderline personality disorder (F60.3) Active confirmed Problem Hyperlipidemia (58365781) Hyperlipidemia (E78.5) 03/12/20 22 Active confirmed Problem Vitamin D deficiency (57509622) Vitamin D deficiency (E55.9) Active confirmed Problem Type 2 diabetes mellitus (19666055) Type 2 diabetes mellitus (E11.9) 03/12/20 22 Active confirmed Problem Posttraumatic stress disorder (03501011) Post traumatic stress disorder (PTSD) (F43.10) Active confirmed Problem Generalized anxiety disorder (28010821) Anxiety, generalized (F41.1) Active confirmed Problem Bladder dysfunction (94272357) Bladder dysfunction (N31.9) Active confirmed Problem Amphetamine use disorder, severe, in sustained 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) Active confirmed Encounters Encounter Location Date Provider Diagnosis [address] [address] 03/28/2024 Darren Arevalo Bipolar II disorder F31.81 ; Borderline personality disorder F60.3 ; Post traumatic stress disorder (PTSD) F43.10 and Anxiety, generalized F41.[address] [address] 06/13/2024 Darren Arevalo Bipolar II disorder F31.81 ; Borderline personality disorder F60.3 ; Post traumatic stress disorder (PTSD) F43.10 and Anxiety, generalized F41.[address] [address] 07/11/2024 Darren Arevalo Bipolar II disorder F31.81 ; Borderline personality disorder F60.3 ; Post traumatic stress disorder (PTSD) F43.10 and Anxiety, generalized F41.[address] [address] 08/08/2024 Darren Arevalo Bipolar II disorder F31.81 ; Borderline personality disorder F60.3 ; Post traumatic stress disorder (PTSD) F43.10 and Anxiety, generalized F41.[address] [address] 09/04/2024 Darren Arevalo Bipolar II disorder F31.81 ; Borderline personality disorder F60.3 ; Post traumatic stress disorder (PTSD) F43.10 and Anxiety, generalized F41.[address] [address] 12/25/2024 Darren Arevalo Bipolar II disorder F31.81 ; Borderline personality disorder F60.3 ; Post traumatic stress disorder (PTSD) F43.10 and Anxiety, generalized F41.[address] [address] 06/02/2024 Darren Arevalo Bipolar II disorder F31.81 ; Anxiety, generalized F41.1 and Post traumatic stress disorder (PTSD) F43.[address] [address] 12/11/2024 Darren Arevalo Borderline personality disorder F60.3 ; Anxiety, generalized F41.1 ; Post traumatic stress disorder (PTSD) F43.10 and Bipolar II disorder F31.81 Assessments Encounter Date Diagnosis (ICD Code) Assessment Notes Treatment Notes Treatment Clinical Notes Section Notes 03/28/2024 Bipolar II disorder (ICD-10 - F31.81) [...] 06/02/2024 Bipolar II disorder (ICD-10 - F31.81) 12/11/2024 Borderline personality disorder (ICD-10 - F60.3) 12/25/2024 Bipolar II disorder (ICD-10 - F31.81) Client doing well, no treatment plan changes needed. 12/25/2024 Borderline personality disorder (ICD-10 - F60.3) Client doing well, no treatment plan changes needed. 06/02/2024 Anxiety, generalized (ICD-10 - F41.1) 12/11/2024 Anxiety, generalized (ICD-10 - F41.1) 09/04/2024 Borderline [...] with stress. No other treatment plan changes. 03/28/2024 Post traumatic stress disorder (PTSD) (ICD-10 [...] treatment plan changes needed at this time. 12/25/2024 Post traumatic stress disorder (PTSD) (ICD-10 - F43.10) Client doing well, no treatment plan changes needed. 12/11/2024 Post traumatic stress disorder (PTSD) (ICD-10 - F43.10) 06/02/2024 Post traumatic stress disorder (PTSD) (ICD-10 - F43.10) 12/25/2024 Anxiety, generalized (ICD-10 - F41.1) Client doing well, no treatment plan changes needed. 09/04/2024 Anxiety, generalized (ICD-10 - F41.1) Client doing well, no treatment plan changes needed at this time. 12/11/2024 Bipolar II disorder (ICD-10 - F31.81) 08/08/2024 Anxiety, generalized (ICD-10 - F41.1) Client [...] with stress. No other treatment plan changes. 03/28/2024 Other Discussed sleep hygiene and caffeine [...] number to the 24-hour crisis line at [facility]. Questions addressed. Client verbalized understanding of [...] number to the 24-hour crisis line at [facility]. Questions addressed. Client verbalized understanding of [...] number to the 24-hour crisis line at [facility]. Questions addressed. Client verbalized understanding of [...] number to the 24-hour crisis line at [facility]. Questions addressed. Client verbalized understanding of [...] number to the 24-hour crisis line at [facility]. Questions addressed. Client verbalized understanding of all information and is agreeable to treatment plan. Client doing well, no treatment plan changes needed at this time. 12/25/2024 Other Discussed sleep hygiene and caffeine intake [...] number to the 24-hour crisis line at [facility]. Questions addressed. Client verbalized understanding of all information and is agreeable to treatment plan. Client doing well, no treatment plan changes needed. Plan Of Treatment Pending Test Test Name [...] End Date MEDICARE PART A [address] [place] [address] [id number] Perla Palomo Self - patient is the insured 8 MEDICAID [address] [facility] [place] [address] [id number] Perla Palomo Self - patient is the insured 0 [employer] Medicare-M [place] [address] [address] [place] [address] [id number] Perla Palomo Self - patient is the insured 2 2 Medical (General) History Medical History History ICD Code T2DM Asthma COPD hyperlipidemia Surgical History Surgery Date(Month/Year) cholecystectomy umbilical hernia repair ventral hernia repair Head and arms abcesss Hospitalization History Reason Date(Month/Year) [facility] Chest pain 08/2022 Possible stroke
== END 2025-03-08 11:01 | disposition home or self-care (01) ==
PROVIDERS: Anesthesiology; PCP Internal Medicine; Referring Provider Internal Medicine Gastroenterology; Visit Provider Internal Medicine Gastroenterology
PROC: 0DJD8ZZ Inspection of Lower Intestinal Tract, Via Natural or Artificial Opening Endoscopic (ICD-10-PCS; CPT 45378; principal; 2025-03-08 11:30)
DX: Z12.11 Encounter for screening for malignant neoplasm of colon (principal); D12.3 Benign neoplasm of transverse colon; K63.5 Polyp of colon; K64.8 Other hemorrhoids; K57.30 Diverticulosis of large intestine without perforation or abscess without bleeding; I10 Essential (primary) hypertension; E03.9 Hypothyroidism, unspecified; G47.33 Obstructive sleep apnea (adult) (pediatric); K58.9 Irritable bowel syndrome, unspecified; E11.9 Type 2 diabetes mellitus without complications; K21.9 Gastro-esophageal reflux disease without esophagitis; J44.9 Chronic obstructive pulmonary disease, unspecified; E78.00 Pure hypercholesterolemia, unspecified; R51.9 Headache, unspecified; F41.9 Anxiety disorder, unspecified; F32.A Depression, unspecified; F43.10 Post-traumatic stress disorder, unspecified; M19.019 Primary osteoarthritis, unspecified shoulder; E66.01 Morbid (severe) obesity due to excess calories; Z68.42 Body mass index [BMI] 45.0-49.9, adult; Z79.82 Long term (current) use of aspirin; Z79.84 Long term (current) use of oral hypoglycemic drugs; Z79.51 Long term (current) use of inhaled steroids; Z79.4 Long term (current) use of insulin; Z96.41 Presence of insulin pump (external) (internal); Z79.85 Long-term (current) use of injectable non-insulin antidiabetic drugs; Z98.890 Other specified postprocedural states; Z98.61 Coronary angioplasty status; Z90.49 Acquired absence of other specified parts of digestive tract; Z87.891 Personal history of nicotine dependence; Z86.73 Personal history of transient ischemic attack (TIA), and cerebral infarction without residual deficits; Z82.49 Family history of ischemic heart disease and other diseases of the circulatory system
CPT/HCPCS: 45385; 88305; J2003; J2704; J7120

== ENCOUNTER 2025-03-20 13:45 | Outpatient (RCR) | payer MEDICARE, SELFPAY ==
--- NOTE | 2025-01-12 16:41 | OPREHPOC ---
Outpatient Therapy Plan of Care This is a Multidisciplinary Plan of Care that may contain components documented by all disciplines (PT, OT, and ST.) PT Problem 1 PT Problem #1 Knowledge Deficit PT Goal 1 Goal / Goal Update 1. Patient to demonstrate independence with HEP for improved self-reliance of symptom management. Target Visit 4 PT Problem 2 PT Problem #2 Pain PT Goal 1 Goal / Goal Update 1. Patient to decrease subjective reports of pain to <3/10 for improved ADL tolerance. 2. Patient to report an improvement in radiating in SYLVAIN LE symptoms by 50% to increase ability to perform ADLs. Target Visit 8 PT Problem 3 PT Problem #3 Impaired Functional Mobility PT Goal 1 Goal / Goal Update 1. Pt to demonstrate an increase of SYLVAIN shoulder AROM to >=145 deg to improve the ability to reach overhead. 2. Patient to demonstrate an increase of Sylvain shoulder internal rotation/external rotation reach of / to improve the ability to perform personal hygiene tasks. 3. -Patient to improve distance ambulated during 2 -Minute Walk Test from to 300ft to demonstrate an improvement in activities of daily living endurance. Target Visit 8
--- NOTE | 2025-01-12 16:42 | PTOPEVAL1 ---
Assessment and note entered by Shaheed Donahue PT Evaluation Information Assessment Status Evaluation Diagnosis SYLVAIN shoulder pain ICD-10 Condition Codes (PT) Pain in low back M54.50,Pain in right shoulder M25 .511,Pain in left shoulder M25.512,Difficulty Walking R26.2,Abnormalities of gait and mobility R26.9,Weakness R53.1 Onset December 30 Subjective Information Pt reports a history of Sylvain shoulder pain for the past two years. Pt reports a fall on December 30 where she fell and landed into a parking barricade further injuring her R shoulder. Pt went to ER and they suspected rotator tear. Pt then went ortho and they believed it was not a rotator cuff tear just inflammation. Pt reports a history of frozen shoulder L and ow feels the R shoulder is tightening after the fall. Pt states she has difficulties with all ADLs but is able to perform bathing and dressing by herself just painful. Pt also reports intense back pain limiting her walking and standing tolerance. Reported Pain Level Pain Score 3,3: Self Report Assessment PT Clinical Summary Patient presents to physical therapy with a primary issue of Sylvain shoulder pain, lower back and leg pain, frequent falls since december 30. Patient has limited shoulder AROM after a recent fall appears to have WFL with PROM and only slight capsular restriction at end ranges .Upon examination Patient demonstrates gross weakness, pain, decreased mobility, abnormal posture, gait deficit, and decreased flexibility that limit their ability to perform activities of daily living and functional movements. Patient will benefit from skilled physical therapy to address the above listed deficits and return to prior level of function. Home exercise program instructed and written handout provided, exercises tolerated well with no adverse effects to note post-session. Patient was educated on importance of adherence to home exercise program. Patient was also educated on anatomy, prognosis, home modalities, and plan of care. Plan of Care Interventions Electrical Stimulation,Gait Training,Hot Pack/Cold Pack,Manual Therapy,Neuro Re-education, Therapeutic Activities,Therapeutic Exercise, Ultrasound,Other PT Services Indicated Yes Treatment Frequency and 2x week 8 visits Duration These treatments will address the objective and functional deficits as defined above. The patient will be advanced safely and appropriately in order for the patient to progress towards his/her prior level of function. Additional exercises will be introduced and as well as a comprehensive home exercise program upon discharge, if needed, ?to ensure carryover of functional gains achieved in the clinic. This treatment plan has been reviewed and agreement upon by the patient.
--- NOTE | 2025-03-06 15:24 | PTOPPROG ---
Assessment and note entered by Shaheed Donahue PT Evaluation Information Assessment Status Progress Diagnosis PORSCHE shoulder pain ICD-10 Condition Codes (PT) Pain in low back M54.50,Pain in right shoulder M25 .511,Pain in left shoulder M25.512,Difficulty Walking R26.2,Abnormalities of gait and mobility R26.9,Weakness R53.1 Onset December 30 Subjective Information Pt states she has had some shoulder soreness but is overall much better and her range of motion has improved which decreases concerns of frozen shoulder. Pt notes she has continued lower back pain and would like to get a weight reduction surgery but she needs to be nicotine free before they schedule a consultation. Pt notes continued difficulty with prolonged standing and walking. She notes that when she is on her feet she gets so much intense pain that does not subside until she seats down. Assessment PT Clinical Summary Patient's R shoulder has improved overall as evidenced by advancements in symptoms, mobility, strength, and overall functional use of the extremity. However, some limitations are still present. Pt still having chronic lower back pain that limits her functional mobility greatly. Pt is waiting on a consultation for weight loss surgery and would benefit from continued therapy to reduce pain and optimize function. Patient would benefit from continued skilled physical therapy services to address the above listed impairments and facilitate a return to their prior level of function. Plan of Care Interventions Electrical Stimulation,Gait Training,Hot Pack/Cold Pack,Manual Therapy,Neuro Re-education, Therapeutic Activities,Therapeutic Exercise, Ultrasound,Other PT Services Indicated Yes Treatment Frequency and 1-2x week 6 visits Duration These treatments will address the objective and functional deficits as defined above. The patient will be advanced safely and appropriately in order for the patient to progress towards his/her prior level of function. Additional exercises will be introduced and as well as a comprehensive home exercise program upon discharge, if needed, ?to ensure carryover of functional gains achieved in the clinic. This treatment plan has been reviewed and agreement upon by the patient.
== END 2025-04-12 23:59 | disposition home or self-care (01) ==
LOC: ANHGOSHPT 13:45
PROVIDERS: PCP Internal Medicine; Referring Provider Nurse Practitioner; Visit Provider Orthopaedic Surgery
DX: M25.512 Pain in left shoulder (principal); G89.29 Other chronic pain; M75.41 Impingement syndrome of right shoulder; M75.82 Other shoulder lesions, left shoulder; R26.81 Unsteadiness on feet
CPT/HCPCS: 97014; 97110; 97112; 97140; 97161; G0283

== ENCOUNTER 2025-04-22 12:55 | Emergency (ER) | payer MEDICARE, SELFPAY ==
--- OUTSIDE RECORDS SUMMARY | 2010-07-22 04:41 | XMS_ITS | Continuity of Care Document ---
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 Role Phone Sawyer Guaman MD Unavailable Medications Medication Instructions Dosage Effective Dates (start - stop) Status Comments Protonix 40 mg Tab Take once daily - A ctive Culturelle 10 billion cell Cap Take 2 every day - Active Xopenex 0.63 mg/3 mL Neb Solution Take as needed - Active Fish Oil 300 mg-1,000 mg Cap, Delayed Release Take 1 twice daily - Active fenofibrate micronized 200 mg Cap Take once daily - Active Humalog 100 unit/mL Sub-Q sliding scale - Active Levemir 100 unit/mL Sub-Q 56u BId - Active Symbicort 80 mcg-4.5 mcg/actuation HFA Aerosol Inhaler Take 1 twice daily - Active Pristiq 50 mg 24 hr Tab 1 1/2 QD - Active aspirin 81 mg Chewable Tab Take once daily - Active loratadine 10 mg Tab take 1 every day - Ac tive clonazepam 0.5 mg Tab Take 1 twice daily - Active Haldol 5 mg/mL Injection 0.5mg QD - Active Protonix 40 mg Tab Take once daily - Activ e levothyroxine 50 mcg Tab Take once daily - Active lithium carbonate ER 450 mg Tab 1 twice daily - Active metformin 1,000 mg Tab Take 1 twice daily - Active simvastatin 40 mg Tab Take once daily - Ac tive Dexilant 60 mg Capsule take 1 every day - No Longer Active Procedures Procedure Date Offic/outpt E&m Estab Mod-hi 2 11 Offic/outpt E m Estab Low Offic/outpt E m Estab Min Offic/outpt E m Estab Min Offic Cons New/estab Mod-4) Offic Cons New/estab Mod-4) Advance Directives Directive Yes / No Effective Date File Name No Information Encounters Encounter Description Practice Location Reason(s) For Visit Diagnoses Date Provider Providers Copied on Encounter [facility], [address] [place] [address], [id number] tel:[phone] [facility] No Information 1 Rowena Jacques. [address] [place] [address], [id number] , [place]. tel:[phone] Offic/outpt E&m Estab Mod-hi 2 [facility], [address] [place] [address], [id number] tel:[phone] [facility] [employer] Diabetes mellitusAsthm aArthritis, unspecified siteApnea, sleep NOSIrritable bowel syndromeHeart burn 1 Michael Wong. [address] [place] [address], [id number] , [place]. tel:[phone] Referring Provider: Minerva Loza, [address] [place] [address], [id number]. tel:[phone] [facility] [employer] [facility], [address] [place] [address], [id number] tel:[phone] [facility] [employer] [facility] [employer] Diabetes mellitusAsthm a 6 Michael Wong. [address] [place] [address], [id number] , [place]. tel:[phone] Referring Provider: Minerva Loza, [address] [place] [address], [id number]. tel:[phone] Offic/outpt E m Estab Low [facility] [employer], [address] [place] [address], [id number] tel:[phone] [facility] Diabetes mellitusAsthm aDiabetes mellitusAsthm aConstipation Nausea 3 Michael Wong. [address] [place] [address], [id number] , . tel:[phone] Referring Provider: Minerva Lux MD S, [address] [place] [address], [id number]. tel:[phone] Offic/outpt E m Estab Min [facility], [address] [place] [address], [id number] tel:[phone] [facility] Chronic Fatty Liver,/non alcoholicChro micheal Fatty Liver,/non alcoholic Oct- 3 Michael Wong. [address] [place] [address], [id number] , [place]. tel:[phone] Referring Provider: Minerva Loza, [address] [place] [address], [id number]. tel:[phone] Offic Cons New/estab Mod-4) [facility], [address] [place] [address], [id number] tel:[phone] [facility] Abnormal liver testsAbnormal liver tests 3 Michael Wong. [address] [place] [address], [id number] , [place]. tel:[phone] Referring Provider: Minerva Loza, [address] [place] [address], [id number]. tel:[phone] Family History Family Member Type Diagnosis Age At Onset No Information Payers Payer name Insurance type Covered alliance party ID Authoriza tion(s) [facility] PPO BL [id number] Medicare MB [id number] Social History Type Description Quantity Date Captured Comments Sex Female Smoking Status No Information Chief Complaint And Reason For Visit No Information Reason For Referral Reason For Referral No Information History Of Present Illness Encounter Date Complaint History Of Prese nt Illness No Information Functional Status Date Functional Assessmen t No Information Instructions Date Instruction Additional Infor mation No Information Assessments Type Assessment Date No Information Patient Care Teams Name Effective Dates (start - stop) Status Members No Information
--- OUTSIDE RECORDS SUMMARY | 2024-05-30 15:00 | XMS_ITS ---
Author Organization [facility] Address [address] [place] [address] Phone [phone] Care Team Providers Care Search Engine Optimization Manager Name Role Phone Darren Arevalo APRN Primary Care Provider REASON FOR VISIT 2 Month Psych F/U & Med Refill Social History Sex Observation Social History Observation Description Sex Observation Female Sexual Orientation Social History Observation Description Sexual Orientation Straight or heterose xual Gender Identity Social History Observation Description Gender Identity Female Encounters Date Time Type Facility Location Provider Diagnosis 05/30/2024 03:00 PM Office Visit [address] [place] [address] Darren Arevalo Plan Of Treatment No Information Medical (General) History Medical History History ICD Code T2DM Asthma COPD hyperlipidemia Surgical History Surgery Date(Month/Year) cholecystectomy umbilical hernia repair ventral hernia repair Head and arms abcesss Hospitalization History Reason Date(Month/Year) [facility] Chest pain 08/2022 Possible stroke MH Progress Notes * Perla LAWRENCE DDOB: [birth year] (49 yo F)Acc No.[id number]:05/30/2024 UNLOCKED PROGRESS NOTE Patient: Perla FULLER Provider: Devonte Arevalo, DNP, PMHNP-BC :1975 A ge:48 Y S ex:Female Date:05/30/2024 Address: [address] [id number] Subjective: * Chief Complaints: * 1 . 2 Month Psych F/U & Med Refill. * Screening: * * Medical History: Objective: * Vitals: Assessment: Plan: * Treatment: * * Electronic signature of Courtney Arevalo , TECHNICAL PRODUCER, [id number] on 04/22/2025 at 12:56 PM ALUMINUM BOAT ASSEMBLY SUPERVISOR Sign off status: Pending * Provider: Devonte Arevalo DNP, [facility] Date: 0 05/30/2024 Generated for Yandy perera/Boubacar/Mario on: 06/23/2024 12:56 PM ALUMINUM BOAT ASSEMBLY SUPERVISOR
--- OUTSIDE RECORDS SUMMARY | 2024-10-02 15:00 | XMS_ITS ---
[facility] Organization [facility] Address [address] [place] [address] Phone [phone] Care Team Providers Care Front Office Representative Name Role Phone Darren Arevalo APRN Primary Care Provider REASON FOR VISIT 1 Month Psych F/U & Med Refill Social History Sex Observation Social History Observation Description Sex Observation Female Sexual Orientation Social History Observation Description Sexual Orientation Straight or heterose xual Gender Identity Social History Observation Description Gender Identity Female Encounters Date Time Type Facility Location Provider Diagnosis 10/02/2024 03:00 PM Office Visit [address] [place] [address] Darren Arevalo Plan Of Treatment No Information Medical (General) History Medical History History ICD Code T2DM Asthma COPD hyperlipidemia Surgical History Surgery Date(Month/Year) cholecystectomy umbilical hernia repair ventral hernia repair Head and arms abcesss Hospitalization History Reason Date(Month/Year) [facility] Chest pain 08/2022 Possible stroke MH Progress Notes * Perla LAWRENCE DDOB: [birth year] (49 yo F)Acc No.[id number]:10/02/2024 UNLOCKED PROGRESS NOTE Patient: Perla FULLER Provider: Devonte Arevalo, DNP, PMHNP-BC :1975 A ge:48 Y S ex:Female Date:10/02/2024 Address: [address] [id number] Subjective: * Chief Complaints: * 1 . 1 Month Psych F/U & Med Refill. * Screening: * * Medical History: Objective: * Vitals: Assessment: Plan: * Treatment: * * Electronic signature of Courtney Arevalo , WELDING TECHNICIAN, [id number] on 04/22/2025 at 12:57 PM MINIBUS DRIVER Sign off status: Pending * Provider: Devonte Arevalo DNP, [facility] Date: 0 10/02/2024 Generated for Yandy perera/Boubacar/Mario on: 1 06/23/2024 12:57 PM MINIBUS DRIVER
[2025-04-22 12:56] VITALS: BP 156/74; PULSE 100; RESP 17; TEMP 36.6; O2SAT 98
--- OUTSIDE RECORDS SUMMARY | 2025-04-22 12:57 | XMS_ITS | Patient Health Record ---
Author Organization [facility] Address [address] [place] [address] Phone [phone] Care Team Providers Care Director Insurance Name Role Phone Darren Arevalo APRN Primary Care Provider Allergies Allergen (clinical drug [...] Frequency, Duration) Notes Start Date End Date Diagnosis (ICD Code) Status Nystatin 352691 UNIT/GM Powder 1 application Externally Twice a day Active Multi Vitamin - Tablet 1 tablet Orally Once a day; Duration: 30 day(s) Active Albuterol Sulfate 2.5 MG/0.5ML Nebulization Solution as directed Inhalation Unknown NovoLIN R FlexPen 100 UNIT/ML Solution Pen-injector as directed Injection 20U three daily Unknown Loratadine 10 MG Tablet 1 tablet Orally Once a day; Duration: 30 day(s) Active Mirena Active Aspirin Low Dose 81 MG Tablet Delayed Release 1 tablet Orally Once a day; Duration: 30 day(s) Active Albuterol Sulfate 108 (90 Base) MCG/ACT Aerosol Powder Breath Activated 1 puff as needed Inhalation every 4 hrs Active Ibuprofen 200 MG Tablet 1 tablet with food or milk as needed Orally Three times a day Unknown Symbicort 80-4.5 MCG/ACT Aerosol 2 puffs Inhalation Once a day Active Simvastatin 10 MG Tablet TAKE 1 TABLET BY MOUTH EVERY DAY IN THE EVENING; Duration: 30 Unknown Vascepa 1 GM Capsule 2 capsules with meals Orally Twice a day; Duration: 30 day(s) Active Tresiba FlexTouch 200 UNIT/ML Solution Pen-injector 25 units Subcutaneous once daily; Duration: 30 days 25U Type 2 diabetes mellitus (ICD_10 - E11.9) Unknown FreeStyle Regina 2 Sensor Systm Unknown Amoxicillin-Pot Clavulanate 875-125 MG Tablet 1 tablet Orally every 12 hrs; Duration: 10 days Upper respiratory infection (ICD_10 - J06.9) Unknown Lancets - Miscellaneous as directed three times daily; Duration: 33 days 2 Type 2 diabetes mellitus (ICD_10 - E11.9) Unknown FreeStyle Regina 2 Sensor - Miscellaneous as directed; Duration: 14 days 2 Type 2 diabetes mellitus (ICD_10 - E11.9) Unknown buPROPion HCl ER (XL) 300 MG Tablet Extended Release 24 Hour 1 tablet in the morning Orally daily; Duration: 30 days Bipolar II disorder (ICD_10 - F31.81) Active Fish Oil 1000 MG Capsule 1 capsule Orally Once a day; Duration: 30 day(s) Not-Taking Lurasidone HCl 60 MG Tablet 1 tablet in the evening with food Once a day; Duration: 30 days Bipolar II disorder (ICD_10 - F31.81) Active Insulin Pen Needle 32G X 4 MM Miscellaneous as directed; Duration: 30 days Type 2 diabetes mellitus (ICD_10 - E11.9) Unknown Omeprazole 20 MG Capsule Delayed Release 1 capsule 30 minutes before morning meal Orally Once a day; Duration: 30 day(s) Active Prazosin HCl 1 MG Capsule TAKE 3 CAPSULES BY MOUTH DAILY AT BEDTIME; Duration: 30 days Post traumatic stress disorder (PTSD) (ICD_10 - F43.10) Active Lisinopril 5 MG Tablet 1 tablet Orally Once a day; Duration: 30 days Hypertension (ICD_10 - I10) Active Sertraline HCl 100 MG Tablet 2 tablets every morning Orally Once a day; Duration: 30 days Anxiety, generalized (ICD_10 - F41.1) Active Farxiga 5 MG Tablet 1 tablet Orally Once a day Active Naltrexone HCl 50 MG Tablet 0.5 - 1 tablet Orally Once a day; Duration: 30 days Borderline personality disorder (ICD_10 - F60.3) Active Baclofen 10 MG Tablet 1 tablet as needed Orally Twice a day Active Ozempic (1 MG/DOSE) 4 MG/3ML Solution Pen-injector as directed Subcutaneous Not-Taking Gabapentin 300 MG Capsule 1 capsule every morning and 3 capsules every evening Orally as directed.; Duration: 7 days Anxiety, generalized (ICD_10 - F41.1) Active Glucagon 1 MG/0.2ML Solution Prefilled Syringe as directed Subcutaneous Active Social History Tobacco Use: Social History Observation Description Date Details (start date - stop date) Current Smoker NA - NA Sex Observation Social History Observation Description Sex Observation Female Sexual Orientation Social History Observation Description Sexual Orientation Straight or heterose xual Gender Identity Social History Observation Description Gender Identity Female Social History Miscellaneous Social Info Question Answer Notes Method of learning: Preferred method of learning: Reading,Discussion,Demonstrat ion,Hearing Primary Social History Social Info Question Answer Notes Living Arrangement Living Arrangement: Independent [place] ing Living with: Parent(s) Is this a supportive environment? Yes Employment Status Employment Status: On Disability Illicit Substance Usage Illicit Substance Usage: No Alcohol Use Alcohol Use Frequency: Never Drugs/Alcohol: Social Info Question Answer Notes Alcohol Screen (Audit-C) Did you have a drink containing alcohol in the past year? No Tobacco Use: Social Info Question Answer Notes Dont use, Tobacco Use/Smoking Are you a Uses tobacco in other forms Tobacco Control (Standard) Tobacco use: Current smoker Additional Findings: Tobacco user e-cigarette Problems Problem Type SNOMED Code ICD Code Dates Problem Status W/U Status Risk Notes Problem Morbid obesity (disorder) (482602073) Morbid (severe) obesity due to excess calories (E66.01) Added On:01/27 Active confirmed Problem Tobacco user (295018944) Nicotine dependence, unspecified, uncomplicated (F17.200) Added On:01/27 Active confirmed Problem Bipolar II disorder (39494233) Bipolar II disorder (F31.81) Added On:09/16 Active confirmed Problem Borderline personality disorder (95323110) Borderline personality disorder (F60.3) Added On:09/16 Active confirmed Problem Hyperlipidemia (12820408) Hyperlipidemia (E78.5) Added On:01/27 Onset Date: 03/12/20 Active confirmed Problem Vitamin D deficiency (92239464) Vitamin D deficiency (E55.9) Added On:03/27 Active confirmed Problem Type 2 diabetes mellitus (00453505) Type 2 diabetes mellitus (E11.9) Added On:01/27 Onset Date: 03/12/20 22 Active confirmed Problem Posttraumatic stress disorder (85714283) Post traumatic stress disorder (PTSD) (F43.10) Added On:09/16 Active confirmed Problem Generalized anxiety disorder (66359843) Anxiety, generalized (F41.1) Added On:09/16 Active confirmed Problem Bladder dysfunction (18122508) Bladder dysfunction (N31.9) Added On:04/13 Active confirmed Problem Amphetamine use disorder, severe, in sustained 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) Added On:09/16 Active confirmed Encounters Date Time Type Facility Location Provider Diagnosis 5 03:00 PM PHONE E/M BY PHYS 11-20 MIN ([id number]) [address] [address] Darren Arevalo Bipolar II disorder F31.81 ; Borderline personality disorder F60.3 ; Post traumatic stress disorder (PTSD) F43.10 and Anxiety, generalized F41.1 5 03:00 PM PHONE E/M BY PHYS 21-30 MIN ([id number]) [address] [address] Darren Arevalo Bipolar II disorder F31.81 ; Borderline personality disorder F60.3 ; Post traumatic stress disorder (PTSD) F43.10 and Anxiety, generalized F41.1 5 03:00 PM PHONE E/M BY PHYS 11-20 MIN ([id number]) [address] [address] Darren Arevalo Bipolar II disorder F31.81 ; Borderline personality disorder F60.3 ; Post traumatic stress disorder (PTSD) F43.10 and Anxiety, generalized F41.1 5 03:00 PM PHONE E/M BY PHYS 21-30 MIN ([id number]) [address] [address] Darren Arevalo Bipolar II disorder F31.81 ; Borderline personality disorder F60.3 ; Post traumatic stress disorder (PTSD) F43.10 and Anxiety, generalized F41.1 5 01:40 PM PHONE E/M BY PHYS 11-20 MIN ([id number]) [address] [address] Darren Arevalo Bipolar II disorder F31.81 ; Borderline personality disorder F60.3 ; Post traumatic stress disorder (PTSD) F43.10 and Anxiety, generalized F41.1 5 01:45 PM Telephone Encounter [address] [address] Darren Arevalo Bipolar II disorder F31.81 ; Anxiety, generalized F41.1 and Post traumatic stress disorder (PTSD) F43.10 5 03:44 PM Telephone Encounter [address] [address] Darren Arevalo Borderline personality disorder F60.3 ; Anxiety, generalized F41.1 ; Post traumatic stress disorder (PTSD) F43.10 and Bipolar II disorder F31.81 5 11:22 AM Telephone Encounter [address] [address] Darren Arevalo Borderline personality disorder F60.3 ; Anxiety, generalized F41.1 ; Post traumatic stress disorder (PTSD) F43.10 and Bipolar II disorder F31.81 Assessments Encounter Date Diagnosis (ICD Code) Assessment Notes Treatment Notes Section Notes 06/13/2024 Bipolar II disorder [...] doing well, no treatment plan changes needed. 04/17/2025 Borderline personality disorder (ICD-10 - F60.3) 06/02/2024 Anxiety, generalized (ICD-10 - F41.1) 12/11/2024 Anxiety, generalized (ICD-10 - F41.1) 04/17/2025 Anxiety, generalized (ICD-10 - F41.1) 12/25/2024 Borderline personality disorder (ICD-10 - F60.3) Client doing well, no treatment plan changes needed. 09/04/2024 Borderline personality disorder (ICD-10 - F60.3) [...] traumatic stress disorder (PTSD) (ICD-10 - F43.10) 04/17/2025 Post traumatic stress disorder (PTSD) (ICD-10 - F43.10) 12/25/2024 Anxiety, generalized (ICD-10 - F41.1) Client doing well, no treatment plan changes needed. 04/17/2025 Bipolar II disorder (ICD-10 - F31.81) 09/04/2024 Anxiety, generalized (ICD-10 - F41.1) Client [...] number to the 24-hour crisis line at [facility]. Questions addressed. Client verbalized understanding of [...] number to the 24-hour crisis line at [facility]. Questions addressed. Client verbalized understanding of [...] number to the 24-hour crisis line at [facility]. Questions addressed. Client verbalized understanding of [...] number to the 24-hour crisis line at [facility]. Questions addressed. Client verbalized understanding of [...] number to the 24-hour crisis line at [facility]. Questions addressed. Client verbalized understanding of all information and is agreeable to treatment plan. Client doing well, no treatment plan changes needed. Plan Of Treatment Pending Test Test Name Order Date Urinalysis In-House, Routine 04/14/2022 Future Test Test Name Order Date Hemoglobin A1c* 02/03/2022 CBC With Differential/Platelet* 02/04/20 Lipid Panel* 02/03/2022 CMP 14 Comprehensive Metabolic Panel* Hemoglobin A1c CLIA Waived 03/17/2022 Insurance Providers Payer Name Payer Address Payer Phone Subscriber Number Group Number Insured Name Patient Relationship to Insured Coverage Start Date Coverage End Date MEDICARE PART A [address] [place] [address] [id number] Perla Palomo Self - patient is the insured 8 MEDICAID [address] [place] [address] [id number] Perla Palomo Self - patient is the insured 0 [employer] Better [employer] Medicare-[facility] [address] [address] [place] [address] [id number] Perla Palomo Self - patient is the insured 2 2 Medical (General) History Medical History History ICD Code T2DM Asthma COPD hyperlipidemia Surgical History Surgery Date(Month/Year) cholecystectomy umbilical hernia repair ventral hernia repair Head and arms abcesss Hospitalization History Reason Date(Month/Year) [facility] Chest pain 08/2022 Possible stroke
--- OUTSIDE RECORDS SUMMARY | 2025-04-22 12:57 | XMS_ITS | Clinical Summary ---
Author Organization [facility] Address [address] [place] [address] Phone Care Team Providers Care Utility Accounts Director Name Role Phone Tracy Izaguirre DIEUDONNE Primary Care Provider [phone] Allergies Active Allergy Reactions Criticality Noted Date [...] DAILY 2 Active Lancets (OneTouch Delica Plus [id number]) misc USE TO CHECK BLOOD SUGAR EVERY [...] each day in the evening 2 Active [place]-3 Fatty Acids (Fish Oil) 1000 MG capsule [...] on file Legal Sex Female 10:24 AM [facility] Gender Identity Not on file Sexual Orientation Not on file Last Filed Vital Signs Vital Sign Reading Time Taken Comments Blood Pressure 122/70 04/15/2022 9:03 AM [employer] [employer] Pulse 72 04/15/2022 9:03 AM [employer] [employer] Temperature 36.1 C (97 F) 04/15/2022 9:03 AM [employer] [employer] Respiratory Rate - - Oxygen Saturation - - Inhaled Oxygen Concentration - - Weight 125 kg (276 lb) 04/15/2022 9:03 AM [employer] Height 165.1 cm (5' 5) 04/15/2022 9:03 AM [employer] Body Mass Index 45.93 04/15/2022 9:03 AM [employer] [employer] Plan of Treatment Health Maintenance Due Date Last Done Comments Influenza Vaccine (#1) 2025 02/14/2022 [place] [id number] MEDICARE MEDICAID - [place] Care Teams Utility Accounts Director Relationship Specialty Start Date End Date Tracy Izaguirre FNP PCP - General Family Medicine 04/15/22
--- OUTSIDE RECORDS SUMMARY | 2025-04-22 12:57 | XMS_ITS | Clinical Summary ---
Author Organization [facility] Address [address] [facility] [email or web address] [address] Care Team Providers Care Tension Worker Name Role Phone Unavailable Primary Care Provider Unavailabl e Social History Tobacco Use Types Packs/Day Years Used Date Smoking Tobacco: Never Assessed Comments Unknown Sex and Gender Information Value Date Recorded Sex Assigned at Not on file Legal Sex Female 12:18 AM EDT Gender Identity Not on file Sexual Orientation Not on file Plan of Treatment Not on file Medical Devices Not on file Insurance [facility]
--- OUTSIDE RECORDS SUMMARY | 2025-04-22 12:57 | XMS_ITS | Clinical Summary ---
Author Organization [facility] Address [address] [place] [address] Care Team Providers Care Postal Service Mail Processor Name Role Phone Unknown, Provider Primary Care Provider Unavaila ble Source Comments [facility],non-owned Affiliates and Associated Physician Practices is amultiple site organization consisting of ambulatory clinics and hospital sitesin [place], [place], [place] and [place]. This disclosure is being madepursuant to the Care Everywhere program and may not contain all information available regarding this patient. Last updated 18.[facility] Allergies Active Allergy Reactions Criticality Noted Date [...] DEPRESSION SCREENING 05/03/2024 COVID-19 VACCINE (1 - 2024-2 6 season) 2025 INFLUENZA VACCINE (#1) 2025 02/14/2022 [...] studies requested for comparison. Please note: The [employer] [employer] has determined that screening mammograms [...] Narrative 11/05/2017 10:34 AM CDT MAMMO BILAT DIAGNOSTIC*[id number] WITH 3D TOMOSYNTHESIS AND CAD HISTORY: No [...] abnormalities, depending on clinical impression. Courtney Mo KENO MANAGER[employer]COUNSELLORS MAMMO ORDERABLES Sharad R esult - Final from Last 3 Months or Most Recently Relevant to Health Maintenance Insurance MEDICAID - [place] MEDICARE MEDICAID [place] SELF PAY NO INSURANCE Member Subscriber Plan / Payer (Ef fective for All Dates) Name:Perla Lawrence Member ID:Not on file Relation to Subscriber:Not on file Name:PERLA LAWRENCE Subscriber ID:Not on file (Home) Address: [address] [place] [address] [place] [address] Payer ID:Not on file Group ID:Not on file Type:Self Pay Address: [place], [place] Care Teams Postal Service Mail Processor Relationship Specialty Start Date End Date Unknown, Provider PCP - General 08/09/20
--- OUTSIDE RECORDS SUMMARY | 2025-04-22 12:57 | XMS_ITS | Clinical Summary ---
Author Organization [facility] Address [address] [place] [address] Care Team Providers Care Neonatal Nurse Name Role Phone Tim Wagoner DO Primary Care Provider [phone] Allergies Active Allergy Reactions Criticality Noted Date [...] Vaccine (#1) 2025 02/14/2022, 2015 Insurance MEDICARE [facility] MEDICARE MEDICARE Care Teams Neonatal Nurse Relationship Specialty Start Date End Date Tim Wagoner DO PCP - General 12/27/19
--- NOTE | 2025-04-22 16:07 | ED.UPPEXIN ---
HPI - Extremity Injury (Upper) General Chief Complaint: Extremity Injury, Upper Stated Complaint: shoulder pain Time Seen by Provider: 04/22/25 16:06 Source: patient Mode of arrival: ambulatory Limitations: no limitations History of Present Illness HPI narrative: 49-year-old with a history of diabetes presents to the ER with a complains of right shoulder pain which is been ongoing for quite some time. Patient states that she did get some steroid injections in her joint by Dr. Garcia on 04/10. Since yesterday she has been having more pain unable to move her shoulder. She denies any fall. No fever or chills. She states that she has been taking ibuprofen with no relief MD complaint: injury to: right Onset (ago): week(s) (2) Other injuries: none Handedness: right Place: home Severity: moderate Relieving factors: none Exacerbating factors: none Associated symptoms: denies other symptoms Related Data Home Medications ?Medication ?Instructions ?Recorded ?Confirmed ?Last Taken ?Type aspirin 81 mg tablet,delayed 81 mg PO DAILY 11/07/19 04/10/25 03/06/25 History release (Adult Low Dose Aspirin) loratadine 10 mg tablet 10 mg PO DAILY 11/07/19 04/10/25 03/06/25 History sertraline 100 mg tablet 200 mg PO DAILY 06/14/20 04/10/25 03/06/25 History multivitamin 1 tablet PO DAILY 08/12/20 04/10/25 03/06/25 History levonorgestrel (Mirena) 1 insert intrauterine ONCE 05/06/21 04/10/25 1 Day Ago History ~04/19/22 omeprazole 20 mg capsule,delayed 20 mg PO DAILY 07/09/21 04/10/25 03/06/25 History release calcium carbonate (Calcium 600) 600 mg PO DAILY 07/23/22 04/10/25 03/06/25 History turmeric 100 mg-angelo 150 cap PO 01/28/23 04/10/25 03/06/25 History mg-olive 50 mg-oreg 150 mg-capryl capsule bupropion HCl 300 mg 24 hr tablet, 300 mg PO DAILY 04/04/24 04/10/25 03/06/25 History extended release lurasidone 60 mg tablet 60 mg PO QPM 04/04/24 04/10/25 03/06/25 History prazosin 1 mg capsule 3 mg PO QHS 04/04/24 04/10/25 03/06/25 History alcohol swabs pad topical 06/14/24 04/10/25 Unknown History insulin pump cart,auto,BT,G6/7 #5 ea 06/14/24 04/10/25 Unknown History (Omnipod 5 G6-G7 Pods (Gen 5) subcutaneous cartridge) pen needle, diabetic 31 gauge x #1,200 ea 06/14/24 04/10/25 Unknown History 5/16 (BD Ultra-Fine Short Pen Needle) niacin 500 mg tablet 1,500 mg PO BID 07/13/24 04/10/25 03/06/25 History ergocalciferol (vitamin D2) 1 cap PO DAILY 09/20/24 04/10/25 03/06/25 History [Vitamin D2] naltrexone 50 mg tablet See Rx Instructions PO DAILY 09/20/24 04/10/25 03/06/25 History omega 5-bjx-zbu-fish oil 1,000 mg 2 cap PO DAILY 02/09/25 04/10/25 03/06/25 History (120 mg-180 mg) capsule (Fish Oil) Allergies Allergy/AdvReac Type Severity Reaction Status Date / Time asenapine (From Saphris) Allergy Intermediate numbness Verified 04/10/25 10:22 in mouth, throat capsaicin (From Capzasin) Allergy Mild rash Verified 04/10/25 10:22 Sulfa (Sulfonamide Allergy Mild RASH Verified 04/10/25 10:22 Antibiotics) erythromycin base AdvReac Mild DIARRHEA Verified 04/10/25 10:22 PMFSH Past Medical History Medical History Trigger thumb, left thumb Hypertension Hypothyroidism Tobacco abuse Obstructive sleep apnea Posttraumatic stress disorder Irritable bowel syndrome Insulin dependent type 2 diabetes mellitus Gastroesophageal reflux disease Chronic obstructive pulmonary disease Transient ischemic attack DJD of shoulder High cholesterol Chronic headaches History of MRSA infection Asthma Drug abuse in remission Osteoarthritis Hepatitis C Treated. Arthritis Anxiety Depression Allergies Surgical History Surgical History History of cardiac cath 10/2022 History of umbilical hernia repair History of laparoscopic cholecystectomy History of colonoscopy with polypectomy History of colonoscopy History of ventral hernia repair History of surgery on arm Family History Family History Mother Diabetes mellitus Asthma Obesity Depression Hypertension Afib Father Brain tumor Depression Social History Social History Social History: Surrogate medical decision maker: Hai Aguillon, father. Code status: Full code. Smoking status: Former smoker Tobacco type: e-cigarettes/vaping Alcohol intake: never Substance use: never Substance use type: crack/cocaine and methamphetamine Other substance usage details: 5.5 years clean Last use: 05/26/2017 Lack of Transportation: No Lack of Food: Never True Current Housing: I Have Housing Concerned About Future Housing: No Difficulty Paying Gas/Electric Bills: No Difficulty Paying for Meds: No Currently Unemployed: No Education: Associate Degree Difficulty w/ Childcare or Family Care: No Living arrangements: with family Additional living arrangements comments: Lives in [place] with parents. 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 Gender identity (if verbalized by the patient): Female Spiritual care concerns: No Exam Narrative: GENERAL: Well-appearing, well-nourished, and in no acute distress. HEAD: Normocephalic, atraumatic. EYES: PERRLA and EOMI. ENT: Nares clear, no rhinorrhea or epistaxis. Mucous membranes moist. NECK: Supple. CHEST: Clear to auscultation. No respiratory distress. HEART: Regular rate and rhythm. No murmur heard. Normal peripheral pulses. EXTREMITIES: Normal range of motion. No edema. Painful ROM of right shoulder SKIN: Warm, dry, no rash. NEURO: No focal deficits. Alert and oriented x3. PSYCH: Normal mood and affect. Course Course Emergency Course: Advised her to continue home medication, take pain medication as prescribed, follow-up with Dr. Garcia on outpatient basis in the next few days Vital Signs Vital signs: Vital Signs Temperature 36.6 C 04/22/25 12:56 Pulse Rate 100 04/22/25 12:56 Respiratory Rate 17 04/22/25 12:56 Blood Pressure 156/74 H 04/22/25 12:56 Pulse Oximetry 98 04/22/25 12:56 Oxygen Delivery Room Air 04/22/25 12:56 Temperature 36.6 C 04/22/25 12:56 Pulse Rate 100 04/22/25 12:56 Respiratory Rate 17 04/22/25 12:56 Blood Pressure 156/74 H 04/22/25 12:56 Pulse Oximetry 98 04/22/25 12:56 Oxygen Delivery Room Air 04/22/25 12:56 [facility] Differential Diagnosis Differential Diagnosis: Osteoarthritis, impingement syndrome , capsulitis Discharge Plan Discharge Clinical Impression: Chronic shoulder pain Patient Disposition: Home Condition: Stable Instructions: Shoulder Pain (ED) Additional Instructions: continue home medications, consider PT , follow with Dr. Perez Patient Language: [place] Island[place] Prescriptions: New celecoxib [Celebrex] 100 mg capsule 100 mg PO BID Qty: 14 0RF No Action aspirin [Adult Low Dose Aspirin] 81 mg tablet,delayed release (DR/EC) 81 mg PO DAILY loratadine 10 mg tablet 10 mg PO DAILY sertraline 100 mg tablet 200 mg PO DAILY xkvdbxgq-wmjx-ihusu-oreg-capry 100 mg-150 mg- 50 mg-150 mg capsule PO fluticasone propionate [Flonase Allergy Relief] 50 mcg/actuation spray,suspension 1 spray intranasal DIRECTED PRN (Reason: skin irritation) Qty: 16 3RF Rx Instructions: [place] Flonase to skin, then apply skin prep before placing Omnipod/Dexcom for skin irrigation Gvoke HypoPen 2-Pack 1 mg/0.2 mL auto-injector 1 mg subcut ONCE PRN (Reason: hypoglycemia) Qty: 0.4 0RF Rx Instructions: as a single dose; may repeat once after 15 minutes if no response rosuvastatin 40 mg tablet 40 mg PO DAILY Qty: 90 3RF albuterol sulfate 90 mcg/actuation HFA aerosol inhaler 2 puff inhalation Q4H PRN (Reason: Shortness Of Breath) Qty: 8.5 3RF (DME) Omnipod 5 G6-G7 Pods (Gen 5) Cartridge See Rx Instructions .ROUTE .MEDSUPPLY Qty: 5 Rx Instructions: As directed (DME) pen needle, diabetic [BD Ultra-Fine Short Pen Needle] 31 gauge x 5/16 needle See Rx Instructions .ROUTE .MEDSUPPLY Qty: 1200 Rx Instructions: As directed alcohol swabs Pads, Medicated topical Mounjaro 15 mg/0.5 mL pen injector 15 mg subcut WEEKLY Qty: 6 1RF Mirena 20 mcg/24 hours (7 yrs) 52 mg intrauterine device 1 insert intrauterine ONCE Rx Instructions: as a single dose multivitamin Tablet 1 tablet PO DAILY omeprazole 20 mg capsule,delayed release(DR/EC) 20 mg PO DAILY prazosin 1 mg capsule 3 mg PO QHS calcium carbonate [Calcium 600] 600 mg calcium (1,500 mg) tablet 600 mg PO DAILY bupropion HCl 300 mg tablet extended release 24 hr 300 mg PO DAILY lurasidone 60 mg tablet 60 mg PO QPM imiquimod 5 % cream in packet 1 applic topical 3XW Qty: 12 3RF omega 7-pkg-xuj-fish oil [Fish Oil] 1,000 (120-180) mg capsule 2 cap PO DAILY ergocalciferol (vitamin D2) [Vitamin D2] 1 cap PO DAILY naltrexone 50 mg tablet See Rx Instructions PO DAILY Rx Instructions: 1/2 to 1 tab orally daily; (DME) Skin Prep Wipes Misc See Rx Instructions .Route Qty: 50 5RF Rx Instructions: As directed for skin irritation gabapentin 300 mg capsule 300 mg PO .COMPLEX 90 Days Qty: 360 1RF Rx Instructions: 300 mg-one monring and 3 at bedtime (DME) Dexcom G6 Sensor Device See Rx Instructions .ROUTE .MEDSUPPLY Qty: 9 0RF Rx Instructions: change every 10 days (DME) Dexcom G6 Transmitter Device See Rx Instructions .ROUTE .MEDSUPPLY Qty: 1 3RF Rx Instructions: As directed (DME) Omnipod 5 G6 Pods (Gen 5) Cartridge See Rx Instructions .ROUTE .MEDSUPPLY Qty: 45 3RF Rx Instructions: change every 48 hours (DME) pen needle, diabetic [Comfort EZ Pen [place]] 33 gauge x 3/16 needle See Rx Instructions .Route Qty: 100 1RF Rx Instructions: As directed niacin 500 mg tablet 1,500 mg PO BID fenofibrate 160 mg tablet See Rx Instructions .ROUTE .COMPLEX Qty: 90 2RF Dose Instruction: TAKE 1 TABLET BY MOUTH DAILY Rx Instructions: TAKE 1 TABLET BY MOUTH DAILY baclofen 10 mg tablet 10 mg PO Q6H PRN (Reason: muscle spasm) Qty: 30 0RF Farxiga 10 mg tablet 10 mg PO QAM Qty: 90 4RF insulin aspart U-100 [Novolog U-100 Insulin aspart] 100 unit/mL solution 120 unit continuous subcutaneous infusion DAILY MDD 120 Qty: 120 3RF insulin glargine [Lantus Solostar U-100 Insulin] 100 unit/mL (3 mL) insulin pen 45 unit subcut QAM PRN (Reason: insulin pump malfunction ) Qty: 15 2RF lisinopril 5 mg tablet 2.5 mg PO DAILY Qty: 90 1RF metformin [Glucophage XR] 500 mg tablet extended release 24 hr 1,000 mg PO BID Qty: 360 1RF nystatin 100,000 unit/gram powder 1 applic TOPICAL .COMPLEX Qty: 60 2RF Rx Instructions: 1 applic topical apply to abdominal fold twice a day; Dulera 100-5 mcg/actuation HFA aerosol inhaler 2 puff inhalation Q12H Qty: 13 5RF Rx Instructions: rinse and spit Follow-up/Referrals: Som Perez MD [Physician, Orthopedics] Tim Wagoner DO [Primary Care Provider, Internal Medicine] Time of Disposition: 16:20
[2025-04-22 16:22] VITALS: BP 136/72; PULSE 84; RESP 18; TEMP 36.8; O2SAT 96
== END 2025-04-22 16:32 | disposition home or self-care (01) ==
LOC: ANHED 16:26
PROVIDERS: Emergency Provider Family Medicine; PCP Internal Medicine
DX: M25.511 Pain in right shoulder (principal); G89.29 Other chronic pain; E03.9 Hypothyroidism, unspecified; E11.9 Type 2 diabetes mellitus without complications; I10 Essential (primary) hypertension; Z87.891 Personal history of nicotine dependence
CPT/HCPCS: 99283